=== PATIENT | female | born 1970 | race Caucasian/White ===

== ENCOUNTER 2019-07-04 15:07 | Emergency (ER) | payer BC, SELFPAY ==
[2019-07-04 15:14] VITALS: BP 149/86; PULSE 83; RESP 16; TEMP 36.8; O2SAT 96; BMI 45.9
--- NOTE | 2019-07-04 15:16 | ED_ITS ---
Entered by Flor Raza, acting as scribe for Evelyn Villavicencio DO Documented by User: Evelyn Villavicencio DO 07/04/19 17:56 HPI - General Adult General: Chief complaint: Chest Pain Stated complaint: chest pains Time Seen by Provider: 07/04/19 15:22 History of Present Illness: HPI narrative: 49 yo female presents with chest pain. Pt states that she has had this pain for about 2 weeks. Pt states that the pain radiates down her arms, into her upper back and into the back of her head. Pt states that the pain is worsened by exertion. MD complaint: chest pain. Associated symptoms: Reports chest pain and nausea; Deny dyspnea, headache(s), malaise, rash, palpitations, syncope or vomiting Review of Systems Const: Denies: fever, chills, body aches, change in appetite, change in weight, fatigue or malaise Eyes: Denies: change in vision, blurry vision, blind spots, photophobia or eye discomfort ENMT: Denies: throat pain, uvular edema, enlarged tonsils, painful swallowing, mouth pain or swelling of lips/tongue Card: Reports: chest pain; Denies: palpitations, irregular heart rhythm, edema, swelling of feet/ankles, lightheadedness, syncope, pre-syncope or shortness of breath on exertion Resp: Denies: shortness of breath, productive cough or non-productive cough GI: Reports: nausea; Denies: abdominal pain, vomiting, vomiting blood, coffee grounds in vomit, difficulty swallowing, heartburn/indigestion, feeling full early, diarrhea or constipation Musc: Reports: back pain; Denies: neck pain, extremity pain or extremity swelling Skin/Breast: Denies: rash, itching, redness, sensitivity to light, skin pain, skin tenderness, skin swelling, sores or new lesion Neuro: Denies: headache, numbness in extremities, weakness in extremities or changes in sensation Psych: Denies: anxiety, depression, mood swings, panic attacks or sleeping le ss Endo: Denies: excessive urination, excessive thirst or tired all the time PFSH ED PFSH: Statuses (acute, chronic, etc) shown below reflect problem list status as previously entered and may not be historically accurate Medical History Acid reflux (Acute) Diabetes (Acute) Hypercholesterolemia (Acute) Surgical History H/O: hysterectomy (Acute) History of (Acute) History of cholecystectomy (Acute) Social History Smoking and tobacco status: current every day smoker Physical Exam Const: COMMON NORMALS: no apparent distress, oriented x3 and no limitations HENMT: HEAD & SCALP: normal to inspection THROAT: no uvular edema Eye: COMMON NORMALS: PERRL GENERAL EYE: normal appearance of both eyes VISUAL ACUITY: Yes acuity normal PUPIL: Yes PERRL Neck/C-Spine: COMMON NORMALS: full ROM and thyroid normal GENERAL: Yes normal visual inspection THYROID: thyroid normal Lymph: LYMPHATIC: no lymphadenopathy noted Chest: COMMONS NORMALS: inspection of chest normal Resp: COMMON NORMALS: normal respiratory effort and clear to auscultation bilaterally EFFORT & INSPECTION: Yes able to speak in complete sentences AUSCULTATION: clear to auscultation bilaterally Cardio: COMMON NORMALS: regular rate PALPATION: normal PMI RATE: regular rate GI: COMMON NORMALS: soft to palpation INSPECTION: Yes normal to inspection PALPATION: Yes soft Neuro: COMMON NORMALS: oriented x3 Course ED course: Coreen was interviewed/examined in room 16, accompanied by her significant other. No chest pain at this time. She has had chest discomfort that radiates acrossed both sides of her chest, is intermittent in nature and usually with exertion. She does not know if shoulder pain acompanies it. EKG, CXR, labs were obtained. She was given aspirin. Her initial troponin was 17, a second set has been ordered. Vital Signs: Vital signs: Vital Signs Temperature 98.2 F 07/04/19 15:14 Pulse Rate 83 07/04/19 15:14 Respiratory Rate 16 07/04/19 15:14 Blood Pressure 149/86 07/04/19 15:14 Pulse Oximetry 96 07/04/19 15:14 MDM - General Adult Lab Data: Labs: Lab Results 07/04/19 07/04/19 07/04/19 Range/Units 15:46 15:46 15:46 WBC 5.2 (4.0-10.0) 10^3/ uL RBC 5.17 (4.1-5.3) 10^6/u L Hgb 14.6 (11.5-15.3) g/dL Hct 45.5 (37.0-47.0) % MCV 88.0 (81-99) fL MCH 28.2 (28.0-34.0) pg MCHC 32.1 (30.0-36.0) g/dL RDW 14.6 (12.1-15.1) % Plt Count 114 L (130-400) 10^3/c mm MPV 10.4 (7.4-10.4) fL Neut % (Auto) 67.2 % Lymph % (Auto) 23.9 % Faulk % (Auto) 5.2 % Eos % (Auto) 2.5 % Baso % (Auto) 0.8 % Neut # (Auto) 3.5 (1.8-7.7) 10^3/u L Lymph # (Auto) 1.3 (0.8-4.8) 10^3/u L Faulk # (Auto) 0.3 (0.2-0.9) 10^3/u L Eos # (Auto) 0.1 (0.0-0.8) 10^3/u L Baso # (Auto) 0.0 (0.0-0.1) 10^3/u L Nucleated RBC % (a uto) 0 % Nucleated RBCs # 0.0 /100WBC Sodium 137 (136-145) mmol/L Potassium 4.2 (3.5-5.1) mmol/L Chloride 101 (98-107) mmol/L Carbon Dioxide 26 (22-29) mmol/L Anion Gap 14.2 (5-19) BUN 9 (6-20) mg/dL Creatinine 0.6 (0.5-0.9) mg/dL GFR Calculation 105.8 (90-130) mL/min Glucose 286 H (65-115) mg/dL Calcium 9.5 (8.5-10.5) mg/dL Total Bilirubin 1.1 (0.15-1.2) mg/dL AST 42 H (0-32) U/L ALT 42 H (0-33) U/L Alkaline Phosphata se 188 H (35-105) IU/L Troponin T Baselin e 17 H (0-10) ng/mL Troponin T 120 Min [place] (0-10) ng/mL Delta Troponin T (0-10) ABS# Total Protein 7.6 (6.6-8.7) g/dL Albumin 3.7 (3.5-5.2) g/dL Globulin 3.9 (1.3-4.6) g/dL 07/04/19 Range/Units 17:38 WBC (4.0-10.0) 10^3/ uL RBC (4.1-5.3) 10^6/u L Hgb (11.5-15.3) g/dL Hct (37.0-47.0) % MCV (81-99) fL MCH (28.0-34.0) pg MCHC (30.0-36.0) g/dL RDW (12.1-15.1) % Plt Count (130-400) 10^3/c mm MPV (7.4-10.4) fL Neut % (Auto) % Lymph % (Auto) % Faulk % (Auto) % Eos % (Auto) % Baso % (Auto) % Neut # (Auto) (1.8-7.7) 10^3/u L Lymph # (Auto) (0.8-4.8) 10^3/u L Faulk # (Auto) (0.2-0.9) 10^3/u L Eos # (Auto) (0.0-0.8) 10^3/u L Baso # (Auto) (0.0-0.1) 10^3/u L Nucleated RBC % (a uto) % Nucleated RBCs # /100WBC Sodium (136-145) mmol/L Potassium (3.5-5.1) mmol/L Chloride (98-107) mmol/L Carbon Dioxide (22-29) mmol/L Anion Gap (5-19) BUN (6-20) mg/dL Creatinine (0.5-0.9) mg/dL GFR Calculation (90-130) mL/min Glucose (65-115) mg/dL Calcium (8.5-10.5) mg/dL Total Bilirubin (0.15-1.2) mg/dL AST (0-32) U/L ALT (0-33) U/L Alkaline Phosphata se (35-105) IU/L Troponin T Khrisin khushbu (0-10) ng/mL Troponin T 120 Min [place] 17.25 H (0-10) ng/mL Delta Troponin T 0.25 (0-10) ABS# Total Protein (6.6-8.7) g/dL Albumin (3.5-5.2) g/dL Globulin (1.3-4.6) g/dL EKG Data^: EKG 1: Attestation: I personally reviewed and interpreted this EKG as follows: EKG interpretation date: 07/04/19 EKG interpretation time: 15:27 Interpretation: Noraml sinus rhythm, ventricul rate 80 bpm normal axis, no st segment abnormalities. EKG 2: Attestation: I personally reviewed and interpreted this EKG as follows: EKG interpretation date: 07/04/19 EKG interpretation time: 17:55 Interpretation: Normal Sinus rhythm, vent rate 76 bpm, no ectopy, normal axis Discharge Plan Discharge Prescriptions: No Action pregabalin [Lyrica] 150 mg capsule 150 mg PO BID 30 Days Qty: 60 RF: 3 Sign Out Sign Out Data: Patient Sign Out occurred on 07/04/19 at 18:22. Patient's care was discussed, and care was transferred from to Rodrigo Stephens DO. Coding Level of Care Code ED Diesel Machinist for Chg Fwd Exam Problem Focused Documented by User: Rodrigo Stephens DO 07/04/19 18:25 HPI - General Adult General: Chief complaint: Chest Pain Stated complaint: chest pains Time Seen by Provider: 07/04/19 15:22 PFSH ED PFSH: Statuses (acute, chronic, etc) shown below reflect problem list status as previously entered and may not be historically accurate Medical History Acid reflux (Acute) Diabetes (Acute) Hypercholesterolemia (Acute) Surgical History H/O: hysterectomy (Acute) History of (Acute) History of cholecystectomy (Acute) Social History Smoking and tobacco status: current every day smoker Course Vital Signs: Vital signs: Vital Signs Temperature 98.2 F 07/04/19 15:14 Pulse Rate 83 07/04/19 15:14 Respiratory Rate 16 07/04/19 15:14 Blood Pressure 149/86 07/04/19 15:14 Pulse Oximetry 96 07/04/19 15:14 MDM - General Adult MDM Narrative: Medical decision making narrative: 49-year-old female received in checkout from Dr. Villavicencio. She reports chest pain that is radicular to her arms and the back of her neck. Is been going on 2 weeks. Her second troponin did not change. Her second EKG is normal without ST changes. She has a normal axis. Her rate is 76. We will release her to follow-up. She may need an outpatient stress test. Lab Data: Labs: Lab Results 07/04/19 07/04/19 07/04/19 Range/Units 15:46 15:46 15:46 WBC 5.2 (4.0-10.0) 10^3/ uL RBC 5.17 (4.1-5.3) 10^6/u L Hgb 14.6 (11.5-15.3) g/dL Hct 45.5 (37.0-47.0) % MCV 88.0 (81-99) fL MCH 28.2 (28.0-34.0) pg MCHC 32.1 (30.0-36.0) g/dL RDW 14.6 (12.1-15.1) % Plt Count 114 L (130-400) 10^3/c mm MPV 10.4 (7.4-10.4) fL Neut % (Auto) 67.2 % Lymph % (Auto) 23.9 % Faulk % (Auto) 5.2 % Eos % (Auto) 2.5 % Baso % (Auto) 0.8 % Neut # (Auto) 3.5 (1.8-7.7) 10^3/u L Lymph # (Auto) 1.3 (0.8-4.8) 10^3/u L Faulk # (Auto) 0.3 (0.2-0.9) 10^3/u L Eos # (Auto) 0.1 (0.0-0.8) 10^3/u L Baso # (Auto) 0.0 (0.0-0.1) 10^3/u L Nucleated RBC % (a uto) 0 % Nucleated RBCs # 0.0 /100WBC Sodium 137 (136-145) mmol/L Potassium 4.2 (3.5-5.1) mmol/L Chloride 101 (98-107) mmol/L Carbon Dioxide 26 (22-29) mmol/L Anion Gap 14.2 (5-19) BUN 9 (6-20) mg/dL Creatinine 0.6 (0.5-0.9) mg/dL GFR Calculation 105.8 (90-130) mL/min Glucose 286 H (65-115) mg/dL Calcium 9.5 (8.5-10.5) mg/dL Total Bilirubin 1.1 (0.15-1.2) mg/dL AST 42 H (0-32) U/L ALT 42 H (0-33) U/L Alkaline Phosphata se 188 H (35-105) IU/L Troponin T Baselin e 17 H (0-10) ng/mL Troponin T 120 Min [place] (0-10) ng/mL Delta Troponin T (0-10) ABS# Total Protein 7.6 (6.6-8.7) g/dL Albumin 3.7 (3.5-5.2) g/dL Globulin 3.9 (1.3-4.6) g/dL 07/04/19 Range/Units 17:38 WBC (4.0-10.0) 10^3/ uL RBC (4.1-5.3) 10^6/u L Hgb (11.5-15.3) g/dL Hct (37.0-47.0) % MCV (81-99) fL MCH (28.0-34.0) pg MCHC (30.0-36.0) g/dL RDW (12.1-15.1) % Plt Count (130-400) 10^3/c mm MPV (7.4-10.4) fL Neut % (Auto) % Lymph % (Auto) % Faulk % (Auto) % Eos % (Auto) % Baso % (Auto) % Neut # (Auto) (1.8-7.7) 10^3/u L Lymph # (Auto) (0.8-4.8) 10^3/u L Faulk # (Auto) (0.2-0.9) 10^3/u L Eos # (Auto) (0.0-0.8) 10^3/u L Baso # (Auto) (0.0-0.1) 10^3/u L Nucleated RBC % (a uto) % Nucleated RBCs # /100WBC Sodium (136-145) mmol/L Potassium (3.5-5.1) mmol/L Chloride (98-107) mmol/L Carbon Dioxide (22-29) mmol/L Anion Gap (5-19) BUN (6-20) mg/dL Creatinine (0.5-0.9) mg/dL GFR Calculation (90-130) mL/min Glucose (65-115) mg/dL Calcium (8.5-10.5) mg/dL Total Bilirubin (0.15-1.2) mg/dL AST (0-32) U/L ALT (0-33) U/L Alkaline Phosphata se (35-105) IU/L Troponin T Baselin e (0-10) ng/mL Troponin T 120 Min [place] 17.25 H (0-10) ng/mL Delta Troponin T 0.25 (0-10) ABS# Total Protein (6.6-8.7) g/dL Albumin (3.5-5.2) g/dL Globulin (1.3-4.6) g/dL Discharge Plan Discharge Prescriptions: No Action pregabalin [Lyrica] 150 mg capsule 150 mg PO BID 30 Days Qty: 60 RF: 3 Sign Out Sign Out Data: Patient Sign Out occurred on 07/04/19 at 18:22. Patient's care was discussed, and care was transferred from to Rodrigo Stephens DO. Coding Level of Care Code ED Diesel Machinist for Chg Fwd Exam Problem Focused The documentation recorded by the Ry regalado Kialy, accurately reflects the service I personally performed and the decisions made by , Evelyn Villavicencio, DO
--- NOTE | 2019-07-04 15:36 | XR_ITS ---
WS: [id number] PORTABLE CHEST HISTORY: chest pain COMPARISON: 06/04/2009 Lungs are clear and well expanded. No pleural effusion or pneumothorax. Cardiac size: Normal. Mediastinum/Aorta: Normal mediastinum. No osseous abnormality seen. XR/XR chest 1V portable [id number] IMPRESSION: Unremarkable portable chest.
[2019-07-04] MEDS: aspirin 81 mg Chew Tablet 324 MG PO (16:05)
[2019-07-04 16:09] LABS: Basophils % 0.8 %; Eosinophils # 0.1 10^3/uL (0.0-0.8); Eosinophils % 2.5 %; Hematocrit 45.5 % (37.0-47.0); Hemoglobin 14.6 g/dL (11.5-15.3); Lymphocytes # 1.3 10^3/uL (0.8-4.8); Lymphocytes % 23.9 %; Mean Corpuscular HGB Conc 32.1 g/dL (30.0-36.0); Mean Corpuscular Hemoglobin 28.2 pg (28.0-34.0); Mean Platelet Volume 10.4 fL (7.4-10.4); Monocytes # 0.3 10^3/uL (0.2-0.9); Monocytes % 5.2 %; Neutrophils # 3.5 10^3/uL (1.8-7.7); Neutrophils % 67.2 %; Nucleated Red Blood Cells % 0 %; Platelet Count 114 10^3/cmm (130-400); Red Blood Count 5.17 10^6/uL (4.1-5.3); Red Cell Distribution Width 14.6 % (12.1-15.1); White Blood Count 5.2 10^3/uL (4.0-10.0)
[2019-07-04 16:21] LABS: Alanine Aminotransferase 42 U/L (0-33); Albumin Level 3.7 g/dL (3.5-5.2); Alkaline Phosphatase 188 IU/L (35-105); Anion Gap 14.2 (5-19); Aspartate Amino Transferase 42 U/L (0-32); Blood Urea Nitrogen 9 mg/dL (6-20); Calcium 9.5 mg/dL (8.5-10.5); Carbon Dioxide 26 mmol/L (22-29); Chloride 101 mmol/L (98-107); Globulin 3.9 g/dL (1.3-4.6); Glomerular Filtration Rate 105.8 mL/min (90-130); Glucose 286 mg/dL (65-115); Potassium 4.2 mmol/L (3.5-5.1); Sodium 137 mmol/L (136-145); Total Bilirubin 1.1 mg/dL (0.15-1.2); Total Protein 7.6 g/dL (6.6-8.7)
[2019-07-04 16:26] LABS: Troponin(5th) Baseline 17 ng/mL (0-10)
--- NOTE | 2019-07-04 17:36 | ECG_ITS ---
Measurements Intervals [place] Rate: 76 P: 64 IN: 170 QRS: 47 QRSD: 82 T: 59 QT: 371 QTc: 418 SINUS RHYTHM Compared to ECG 03/04/2016 19:29:15 No significant changes Electronically Signed On 07-04-2019 22:25:54 PRODUCTION LEADER by Carolyn Luna M.D. [id number]
[2019-07-04 18:05] LABS: Troponin 5 2HR 17.25 ng/mL (0-10); Troponin 5 2HR Delta 0.25 ABS# (0-10)
[2019-07-04 18:48] VITALS: BP 127/79; PULSE 78; RESP 16; O2SAT 95
--- NOTE | 2019-07-04 21:36 | ECG_ITS ---
Measurements Intervals [place] Rate: 80 P: 58 [place]: 165 QRS: 41 QRSD: 93 T: 51 QT: 354 QTc: 409 SINUS RHYTHM Compared to ECG 03/04/2016 19:29:15 No significant changes Electronically Signed On 07-04-2019 22:25:46 HEM MARKER by Carolyn Luna M.D. [id number]
== END 2019-07-04 18:48 | disposition home or self-care (01) ==
PROVIDERS: Emergency Medicine Emergency Medical Services; Emergency Provider Emergency Medicine; Family Provider Nurse Practitioner Family
DX: R07.9 Chest pain, unspecified (principal); E11.9 Type 2 diabetes mellitus without complications; F17.210 Nicotine dependence, cigarettes, uncomplicated
CPT/HCPCS: 36415; 71045; 80053; 84484; 85025; 93005; 96360; 99281; 99284

== ENCOUNTER 2019-07-29 09:03 | Outpatient (CLI) | payer BC, SELFPAY ==
[2019-07-29 09:37] VITALS: BMI 47.3
--- NOTE | 2019-07-29 09:41 | ECG_ITS ---
NAME OF STUDY: LEXISCAN SESTAMIBI STRESS TEST INDICATION: Atypical Chest Pain; Shortness of Breath PROCEDURE: At the baseline, the blood pressure was 105/66 mmHg, oxygen saturation 95% with a heart rate of 71 bpm. The electrocardiogram showed normal sinus rhythm, normal axis with normal ST and T's. The Lexiscan was infused over a period of 20 seconds. A total of 0.4 milligrams of Lexiscan was infused. The stress phase was continued for a total of 5 minutes. Heart rate at the end of the stress phase was 89 bpm, oxygen saturation 94% with a blood pressure 108/65 mmHg. The EKG at the peak infusion revealed sinus rhythm with no significant ST-T wave changes. Sestamibi was injected 20 seconds after the Lexiscan infusion. Blood pressure at the end of the recovery phase was 125/70 mmHg, oxygen saturation 95% with a heart rate of 102 beats per minute. Patient developed intraprocedural shortness of breath which resolved by discharge. CONCLUSION: 1. Normal EKG response to LexiScan infusion. 2. No LexiScan induced chest pain or cardiac arrhythmia. 3. Normal blood pressure and heart rate response. 4. Sestamibi/sestamibi perfusion scan pending; see separate report. Electronically Signed On 07-29-2019 18:04:21 DAY HABILITATION SUPERVISOR by Jasmin Yeboah M.D. [id number]
--- NOTE | 2019-07-29 09:41 | NMCV_ITS ---
NM kailey perf SPECT r/s* [id number] Aspen Lama Age: 49 Gender: F : 1970 Exam Date: 07/29/2019 09:41 Ordering Phys: Ralph Rothman SALES AND CATERING COORDINATOR Technologist: ROCKY Benavides Exam Location: [facility] Indications: CHEST PAIN STRESS TEST [facility] IMAGE PROTOCOL Rest/Stress 1 Lexiscan Day Radiopharmaceutical Dose (mCi) Administration Site Administered by Rest: Tc-99m 10.5 IV Estefani Gurrola, ELECTRONIC FIELD SERVICE ENGINEER Sestamibi Stress:Tc-99m 32.8 IV Estefani Bellamyrager, ELECTRONIC FIELD SERVICE ENGINEER Sestamibi Rest: 29-Jul-2019 60 Discovery 630 Stress: 29-Jul-2019 30 Discovery 630 0.4mg Lexiscan. Images obtained in supine and prone position. SPECT RESULTS Technical Quality: Good Raw Data Analysis: Breast attenuation, Soft tissue attenuation Image Corrections: No attenuation or motion correction applied Summed Stress Score: 24 Summed Rest Score: 15 Summed Difference Score: 10 PERFUSION FINDINGS Large size perfusion abnormality of moderate severity in entire anterior, mid to apical anteroseptal, mid to apical anterolateral and apical navarrete on rest images with reversibility noted in anteroseptal, anterior and septal wall on stress images. FUNCTIONAL RESULTS (calculated via Gated SPECT) Stress Image LV EF (%): 22 Stress EDV (mL):209 TID: 1.15 Stress ESV (mL):163 FUNCTIONAL FINDINGS: The left ventricle is dilated. Transient Ischemia Dilatation of 1.1. The left ventricular ejection fraction is severely reduced with a value of 22%. Severe global hypokinesis with akinesis of mid to apical anterior, septal and apical navarrete. Severely increased end-diastolic volume of 209 mL and end-systolic volume of 163 mL. IMPRESSIONS 1. Large size perfusion abnormality of entire anterior, mid to apical anteroseptal, mid to apical anterolateral and apical navarrete with moderate reversibility noted on stress images. 2. This is suggestive of large area of old myocardial infarction in left anterior descending artery territory with moderate area of yoana-infarct ischemia. 3. The left ventricular ejection fraction is severely reduced with a value of 22%. 4. Severe global hypokinesis with akinesis of mid to apical anterior, septal and apical navarrete. 5. Scan indicates moderate to high risk for cardiac events. Jasmin Yeboah MD (Electronically Signed) Final Date: 02 August 2019 09:27 S
--- NOTE | 2019-07-29 11:50 | SUR.PREOP ---
Patient reports no pain or discomfort prior to the start of the procedure.
[2019-07-29] MEDS: regadenoson 0.4 Mg/5 ml Syringe IVP (11:52)
[2019-07-29 11:58] VITALS: BP 125/70; PULSE 104
== END 2019-07-29 09:04 | disposition home or self-care (01) ==
LOC: CDL 09:11
PROVIDERS: Family Provider Registered Nurse; PCP Registered Nurse; Visit Provider Registered Nurse
DX: R07.89 Other chest pain (principal); R06.02 Shortness of breath
CPT/HCPCS: 78452; 93017; A9500; J2785

== ENCOUNTER 2019-08-03 02:15 | Inpatient (IN) | payer BC, SELFPAY ==
[2019-08-03] VITALS (31 sets, daily range): BP systolic 110–207; BP diastolic 66–119; PULSE 102–123; RESP 5–27; TEMP 36.4–36.7; O2SAT 90–96; BMI 45.9
--- NOTE | 2019-08-03 02:18 | XR_ITS ---
WS: [id number] Portable AP upright chest, 08/03/2019 Clinical Data: cp Comparison: Chest, 07/04/2019. Findings: No nodules, masses or effusions are seen. The heart is normal. The pulmonary vascularity is not increased. No pneumonia or pneumothorax is seen. XR/XR chest 1V portable [id number] Impression: Negative chest.
--- NOTE | 2019-08-03 02:18 | ECG_ITS ---
Measurements Intervals [place] Rate: 116 P: 62 [place]: 136 QRS: -18 QRSD: 83 T: 97 QT: 311 QTc: 432 SINUS TACHYCARDIA MINIMAL VOLTAGE CRITERIA FOR LVH, CONSIDER NORMAL VARIANT [MEETS CRITERIA IN ONE OF: R(aVL), S(V1), R(V5), R(V5/V6)+S(V1)] ANTEROSEPTAL MYOCARDIAL INFARCTION , OF INDETERMINATE AGE [40+ ms Q WAVE IN V1-V4] Compared to ECG 07/04/2019 17:53:18 Myocardial infarct finding now present Sinus rhythm no longer present Electronically Signed On 08-04-2019 9:00:06 CDT by Ger Allan M.D. [id number]
--- NOTE | 2019-08-03 02:18 | ED_ITS ---
Entered by Tammy Bey, acting as scribe for HPI - Chest Pain General: Chief Complaint: Chest Pain Stated Complaint: CP Time Seen by Provider: 08/03/19 02:17 Source: patient Mode of arrival: wheelchair Limitations: no limitations History of Present Illness: HPI narrative: 49 yo f came to the er pov with family for chest pain. Onest was last night. Pt states that she had a stress test done last week. Pt said that the pain is on the left side around the left breast and middle of her chest. Pt is having some shortness of breath and nausea. Pt said that this has been going on and off for a month. MD complaint: chest pain Pertinent past history: prior SC Onset (ago): day(s) (last night) Timing of current episode: episodic Prior episodes: Yes Onset: during rest Pain location: substernal Pain radiation: none Severity: mild Associated symptoms: Reports nausea Review of Systems General: Reports: other (negative unless marked) Card: Reports: chest pain GI: Reports: nausea PFSH ED PFSH: Social History (Updated 08/02/19 @ 15:20 by Noemy Mendenhall LPN) Smoking and tobacco status: current every day smoker Alcohol intake: never Adopted: No Caregiver/support person: No Lives independently: No Household members: spouse Marital status: Current occupational status: employed History of recent travel: No Sexually active: Yes Current gender identity: Female Course Vital Signs: Vital signs: Vital Signs Temperature 98.1 F 08/03/19 02:20 Pulse Rate 102 H 08/03/19 03:18 Respiratory Rate 20 H 08/03/19 02:48 Blood Pressure 153/96 08/03/19 03:18 Pulse Oximetry 92 08/03/19 03:18 MDM - Chest Pain MDM Narrative: Medical decision making narrative: Patient presents here with chest pain. Went over her recent stress test that was abnormal and she has an elevated troponin consistent with an STEMI. Patient started on heparin I spoke to hospitalist will admit to the [facility]. Also spoke to Dr. Matthew who is consulted patient is pain-free here after nitro. Lab Data: Labs: Lab Results 08/03/19 08/03/19 08/03/19 Range/Units 02:30 02:30 02:30 WBC 7.6 (4.0-10.0) 10^3/ uL RBC 5.19 (4.1-5.3) 10^6/u L Hgb 14.9 (11.5-15.3) g/dL Hct 45.6 (37.0-47.0) % MCV 87.9 (81-99) fL MCH 28.7 (28.0-34.0) pg MCHC 32.7 (30.0-36.0) g/dL RDW 14.2 (12.1-15.1) % Plt Count 115 L (130-400) 10^3/c mm MPV 11.1 H (7.4-10.4) fL Neut % (Auto) 76.5 % Lymph % (Auto) 16.2 % [place] % (Auto) 4.6 % Eos % (Auto) 1.7 % Baso % (Auto) 0.7 % Neut # (Auto) 5.8 (1.8-7.7) 10^3/u L Lymph # (Auto) 1.2 (0.8-4.8) 10^3/u L [place] # (Auto) 0.4 (0.2-0.9) 10^3/u L Eos # (Auto) 0.1 (0.0-0.8) 10^3/u L Baso # (Auto) 0.1 (0.0-0.1) 10^3/u L Nucleated RBC % (a uto) 0 % Nucleated RBCs # 0.0 /100WBC D-Dimer (0-0.59) ug/mIFE U Sodium 138 (136-145) mmol/L Potassium 4.0 (3.5-5.1) mmol/L Chloride 102 (98-107) mmol/L Carbon Dioxide 23 (22-29) mmol/L Anion Gap 17.0 (5-19) BUN 12 (6-20) mg/dL Creatinine 0.6 (0.5-0.9) mg/dL GFR Calculation 105.8 (90-130) mL/min Glucose 252 H (65-115) mg/dL Calculated Osmolal ity 291 (285-295) mOsm/k g Calcium 9.6 (8.5-10.5) mg/dL Total Bilirubin 0.8 (0.15-1.2) mg/dL AST 41 H (0-32) U/L ALT 31 (0-33) U/L Alkaline Phosphata se 187 H (35-105) IU/L Troponin T Baselin e 254 H* (0-10) ng/mL Total Protein 8.1 (6.6-8.7) g/dL Albumin 3.6 (3.5-5.2) g/dL Globulin 4.5 (1.3-4.6) g/dL 08/03/19 Range/Units 02:30 WBC (4.0-10.0) 10^3/ uL RBC (4.1-5.3) 10^6/u L Hgb (11.5-15.3) g/dL Hct (37.0-47.0) % MCV (81-99) fL MCH (28.0-34.0) pg MCHC (30.0-36.0) g/dL RDW (12.1-15.1) % Plt Count (130-400) 10^3/c mm MPV (7.4-10.4) fL Neut % (Auto) % Lymph % (Auto) % [place] % (Auto) % Eos % (Auto) % Baso % (Auto) % Neut # (Auto) (1.8-7.7) 10^3/u L Lymph # (Auto) (0.8-4.8) 10^3/u L [place] # (Auto) (0.2-0.9) 10^3/u L Eos # (Auto) (0.0-0.8) 10^3/u L Baso # (Auto) (0.0-0.1) 10^3/u L Nucleated RBC % (a uto) % Nucleated RBCs # /100WBC D-Dimer <= 0.27 (0-0.59) ug/mIFE U Sodium (136-145) mmol/L Potassium (3.5-5.1) mmol/L Chloride (98-107) mmol/L Carbon Dioxide (22-29) mmol/L Anion Gap (5-19) BUN (6-20) mg/dL Creatinine (0.5-0.9) mg/dL GFR Calculation (90-130) mL/min Glucose (65-115) mg/dL Calculated Osmolal ity (285-295) mOsm/k g Calcium (8.5-10.5) mg/dL Total Bilirubin (0.15-1.2) mg/dL AST (0-32) U/L ALT (0-33) U/L Alkaline Phosphata se (35-105) IU/L Troponin T Baselin e (0-10) ng/mL Total Protein (6.6-8.7) g/dL Albumin (3.5-5.2) g/dL Globulin (1.3-4.6) g/dL Imaging Data^: CXR: Attestation: I personally reviewed and interpreted this imaging study as follows: My impression: no acute abnormality EKG Data^: EKG 1: Attestation: I personally reviewed and interpreted this EKG as follows: EKG interpretation date: 08/03/19 EKG interpretation time: 02:25 Interpretation: sinus tach hr [address] or t wave abnormalities qrs 83 qtc 380 Discharge Plan Discharge Patient Disposition: Admitted As Inpatient Clinical Impression: Non-ST elevation SC (NSTEMI) Condition: Stable Referrals: Ralph Rothman FNP [Primary Care Provider] - Coding Level of Care Code ED Track Walker for Chg Fwd The documentation recorded by the Sotero regalado Stephanie Lyn, accurately reflects the service I personally performed and the decisions made by , Randall Ceja MD Aug 03, 2019 02:15
[2019-08-03] MEDS: aspirin 81 mg Chew Tablet 324 MG PO (02:35)
[2019-08-03] MEDS: nitroglycerin 0.4 mg sublingual Tablet SUBLINGUAL (02:39)
[2019-08-03 02:51] LABS: D Dimer <= 0.27 ug/mIFEU (0-0.59)
[2019-08-03 02:59] LABS: Alanine Aminotransferase 31 U/L (0-33); Albumin Level 3.6 g/dL (3.5-5.2); Alkaline Phosphatase 187 IU/L (35-105); Aspartate Amino Transferase 41 U/L (0-32); Blood Urea Nitrogen 12 mg/dL (6-20); Calcium 9.6 mg/dL (8.5-10.5); Carbon Dioxide 23 mmol/L (22-29); Chloride 102 mmol/L (98-107); Globulin 4.5 g/dL (1.3-4.6); Glomerular Filtration Rate 105.8 mL/min (90-130); Glucose 252 mg/dL (65-115); Osmolality Calculated 291 mOsm/kg (285-295); Sodium 138 mmol/L (136-145); Total Bilirubin 0.8 mg/dL (0.15-1.2); Total Protein 8.1 g/dL (6.6-8.7)
[2019-08-03 03:26] LABS: Troponin(5th) Baseline 254 ng/mL (0-10)
[2019-08-03 03:29] LABS: Basophils # 0.1 10^3/uL (0.0-0.1); Basophils % 0.7 %; Eosinophils # 0.1 10^3/uL (0.0-0.8); Eosinophils % 1.7 %; Hematocrit 45.6 % (37.0-47.0); Hemoglobin 14.9 g/dL (11.5-15.3); Lymphocytes # 1.2 10^3/uL (0.8-4.8); Lymphocytes % 16.2 %; Mean Corpuscular HGB Conc 32.7 g/dL (30.0-36.0); Mean Corpuscular Hemoglobin 28.7 pg (28.0-34.0); Mean Corpuscular Volume 87.9 fL (81-99); Mean Platelet Volume 11.1 fL (7.4-10.4); Monocytes # 0.4 10^3/uL (0.2-0.9); Monocytes % 4.6 %; Neutrophils # 5.8 10^3/uL (1.8-7.7); Neutrophils % 76.5 %; Nucleated Red Blood Cells % 0 %; Platelet Count 115 10^3/cmm (130-400); Red Blood Count 5.19 10^6/uL (4.1-5.3); Red Cell Distribution Width 14.2 % (12.1-15.1); White Blood Count 7.6 10^3/uL (4.0-10.0)
--- NOTE | 2019-08-03 03:33 | PM.HP ---
Providers/Chief Complaint Primary Care Provider: HAI Merlos Chief Complaint: CP History of Present Illness Aspen Lama is a 49 year old female who had a nuclear stress test 07/28, finalized on 08/01 which was positive for reversible ischemia mid to apical anteroseptal, anterolateral navarrete suggestive of left anterior descending artery territory with yoana-infarctive changes, EF 22% due to global hypokinesia, cardiac cath was recommended came in with chief complaint of recurrent chest pain. Patient went to her primary care physician yesterday who called Dr. Yeboah, stress test abnormal results were notified and she was told that she will need cardiac catheterization. Patient's symptoms started in first week of June, her symptoms were originating especially at the time of hot showers, mild exertion such as doing laundry, walking up to her car, she was seen in ER and was asked to follow-up with PCP for outpatient stress test. Last night patient had chicken noodle with grilled cheese, she was about to go to bed when she started experiencing chest tightness, which she describes by putting hand and middle of her chest, it was radiating towards her both arms and back, she experienced 3 episodes of emesis, it was associated with some shortness of breath, she has not experienced any leg swelling, weight gain, she sleeps with CPAP, mostly to her right lateral position or on her stomach. 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 She smokes about 1 pack/day. For her diabetes she has been taking insulin U500 Diagnostics in ER revealed sinus tachycardia, T wave changes in lateral and septal leads, Q waves in septal leads, hyperglycemia, baseline troponin II 154, heparin drip has been initiated, she has received full dose aspirin Review of Systems Const: Denies: fever, chills or body aches Eyes: Denies: change in vision ENMT: Denies: throat pain Card: Reports: chest pain, swelling of feet/ankles, shortness of breath when lying down and bluish discoloration of hands/feet; Denies: palpitations or irregular heart rhythm Resp: Reports: shortness of breath; Denies: productive cough or non-productive cough GI: Reports: bloating; Denies: abdominal pain : Denies: flank pain Musc: Denies: neck pain Skin/Breast: Denies: rash Neuro: Denies: headache Psych: Denies: anxiety Endo: Denies: excessive urination Andrey/Lymph: Reports: easy bruising All/Imm: Denies: hives Medications/Allergies Allergies Allergy/AdvReac Type Severity Reaction Status Date / Time cephalexin [From Keflex] Allergy ADR-Itching Verified 08/02/19 15:18 Iodinated Contrast Media Allergy ADR-Cough Verified 08/02/19 15:18 Penicillins Allergy ADR-Itching Verified 08/02/19 15:18 PFSH Acute PFSH: Medical History (Updated 08/03/19 @ 04:30 by Carolyn Ramon MD) Acid reflux Diabetes Hypercholesterolemia Surgical History H/O: hysterectomy History of History of cholecystectomy Social History (Updated 08/02/19 @ 15:20 by Noemy Mendenhall LPN) Smoking and tobacco status: current every day smoker Alcohol intake: never Adopted: No Caregiver/support person: No Lives independently: No Household members: spouse Marital status: Current occupational status: employed History of recent travel: No Sexually active: Yes Current gender identity: Female Vitals/I&O/Wt Last Vital Signs Temp 98.1 F 08/03/19 02:20 Pulse 102 H 08/03/19 03:18 Resp 20 H 08/03/19 02:48 BP 153/96 08/03/19 03:18 Pulse Ox 92 08/03/19 03:18 Weight last 48 hrs Weight 145.15 kg Physical Exam Narrative: EXAM NARRATIVE: Morbidly obese female sitting comfortably in her bed, Sinus tachycardia heart rate 105, Currently chest pain-free Systolic blood pressure 157 S1, S2 no signs of heart failure or JVD or murmur Bilateral breath sounds, without adventitious sounds No respiratory distress Abdomen soft, distended, history obesity, Lower extremity venous stasis dermatitis No active swelling Patient is very emotional at the moment, No suicidal thoughts Data : 08/03/19 02:30 08/03/19 02:30 A&P Assessment and plan (1) Non-ST elevation [place] (NSTEMI): Status: Acute Code(s): I21.4 - Non-ST elevation (NSTEMI) myocardial infarction (2) Morbid obesity: Status: Acute Code(s): E66.01 - Morbid (severe) obesity due to excess calories (3) Ischemic contracture of left ventricle syndrome: Status: Acute Code(s): I50.1 - Left ventricular failure, unspecified (4) Shortness of breath on exertion: Status: Acute Code(s): R06.02 - Shortness of breath (5) Cigarette smoker motivated to quit: Status: Acute Code(s): F17.210 - Nicotine dependence, cigarettes, uncomplicated (6) Diabetes: Status: Acute Qualifiers: Diabetes mellitus type: type 2 Diabetes 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 use: with adjunct faculty for medical terminology use Diabetes mellitus complication status: without complication Qualified Code(s): E11.9 - Type 2 diabetes mellitus without complications; 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 Heparin drip Poorly controlled type 2 diabetes Patient is taking insulin U500 Considering n.p.o. status I will keep her on sliding scale for now Morbid obesity Patient uses CPAP at night Counseled on weight loss and benefits on high blood pressure, energy, mood, hemodynamics, etc. Active smoker, she tried nicotine alternative methods for 2 -3 days but failed unfortunately, currently smoking 1 pack/day, Full code Attestations Medical Necessity Statement*: Anticipating her stay to cross more than 2 midnights needs cardiac angiogram for an NSTEMI Time Spent in Patient Care: 40 Coding Level of Care Code Acute Implementation Director for [facility] Fwd Diagnoses Non-ST elevation [place] (NSTEMI) I21.4 Morbid obesity E66.01 Ischemic contracture of left ventricle syndrome I50.1 Shortness of breath on exertion R06.02 Cigarette smoker motivated to quit F17.210 Diabetes E11.9; Z79.4 Diabetes mellitus type: type 2 Diabetes mellitus [facility] insulin use: with [facility] use Diabetes mellitus complication status: without complication
[2019-08-03] MEDS: heparin 5,000 unit/mL INJ 1 mL 4000 UNIT IVP (03:46)
[2019-08-03] MEDS: heparin drip 25,000 UNIT/500 ML PREMIX 34.8 UNIT IV (03:49)
--- NOTE | 2019-08-03 04:18 | ECG_ITS ---
Measurements Intervals [place] Rate: 99 P: 50 FL: 134 QRS: -13 QRSD: 99 T: 95 QT: 338 QTc: 434 SINUS RHYTHM ANTEROSEPTAL MYOCARDIAL INFARCTION , OF INDETERMINATE AGE [40+ ms Q WAVE IN V1-V4] Compared to ECG 07/04/2019 17:53:18 Myocardial infarct finding now present Electronically Signed On 08-04-2019 9:05:36 CDT by Ger Allan M.D. [email or web address]
--- NOTE | 2019-08-03 04:47 | PC.NURSE ---
Dr. Ceja advised of patient blood pressure of 187/118, awaiting orders
[2019-08-03] MEDS: labetalol 5 mg/mL SDV 20mL 10 MG IVP (04:55)
--- NOTE | 2019-08-03 08:18 | ECG_ITS ---
Measurements Intervals [place] Rate: 102 P: 55 DE: 141 QRS: -14 QRSD: 96 T: 95 QT: 329 QTc: 430 SINUS TACHYCARDIA ANTEROSEPTAL MYOCARDIAL INFARCTION , OF INDETERMINATE AGE [40+ ms Q WAVE IN V1-V4] Compared to ECG 07/04/2019 17:53:18 Myocardial infarct finding now present Sinus rhythm no longer present Electronically Signed On 08-04-2019 9:05:40 CDT by Ger Allan M.D. [email or web address]
[2019-08-03 09:09] LABS: Troponin 5 6HR 1042 ng/mL (0-10); Troponin 5 6HR Delta 788 ng/L (0-12)
--- NOTE | 2019-08-03 09:23 | P.PN_ITS ---
Subjective Subjective: Interval history: She is having some discomfort in her mid to lower chest. Denies other complaints. Vitals/I&O/Wt Last Vital Signs Temp 98.1 F 08/03/19 02:20 Pulse 108 H 08/03/19 06:48 Resp 20 H 08/03/19 06:48 BP 160/87 08/03/19 06:48 Pulse Ox 94 08/03/19 06:48 Weight last 48 hrs Weight 145.15 kg Physical Exam Const: COMMON NORMALS: no apparent distress and oriented x3 NUTRITIONAL APPEARANCE: obese OTHER: Family at bedside. HENMT: COMMON NORMALS: oropharynx normal Neck/C-Spine: COMMON NORMALS: no JVD Resp: COMMON NORMALS: normal respiratory effort and clear to auscultation bilaterally AUSCULTATION: clear to auscultation bilaterally Cardio: COMMON NORMALS: no JVD, regular rhythm, S1 normal heart sound, S2 normal heart sound and no murmurs RHYTHM: regular rhythm HEART SOUNDS: S1 normal and S2 normal GI: COMMON NORMALS: normal to inspection, nondistended, normoactive bowel sounds, soft to palpation and non-tender PALPATION: Yes soft Extremity: COMMON NORMALS: no joint enlargement and no pedal edema Neuro: COMMON NORMALS: oriented x3 and moves all extremities Skin: COMMON NORMALS: no rashes or lesions noted GENERAL SKIN EXAM: no rashes or lesions noted Data : 08/03/19 02:30 08/03/19 02:30 A&P Assessment and plan (1) Non-ST elevation [place] (NSTEMI): Continue cardiac medications including heparin drip. Awaiting cardiac evaluation and coronary angiography. Status: Acute Code(s): I21.4 - Non-ST elevation (NSTEMI) myocardial infarction (2) Ischemic contracture of left ventricle syndrome: Status: Deleted Code(s): I50.1 - Left ventricular failure, unspecified (3) Morbid obesity: Follow-up with primary care provider regarding weight loss options. Status: Acute Code(s): E66.01 - Morbid (severe) obesity due to excess calories (4) Shortness of breath on exertion: Status: Acute Code(s): R06.02 - Shortness of breath (5) Cigarette smoker motivated to quit: Continue to encourage cessation. Status: Acute Code(s): F17.210 - Nicotine dependence, cigarettes, uncomplicated (6) Diabetes: Continue sliding scale insulin. Currently n.p.o. 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
--- NOTE | 2019-08-03 09:52 | USCV_ITS ---
Aspen Lama Age: 49 Gender: F : 1970 Exam Date: 08/03/2019 10:37 Ordering Phys: Marce Matthew MD ([email or web address]) Technologist: Maurizio Awad Exam Location: [facility] [place] Indication: CT BP: 163 / 112 HR: 102 Rhythm: Sinus Technical Quality: Fair MEASUREMENTS (Male / Female) Normal Values 2D ECHO LV Diastolic Diameter PLAX 3.8 cm 4.2 - 5.9 / 3.9 - 5.3 cm LV Systolic Diameter PLAX 3.6 cm IVS Diastolic Thickness 1.3 cm 0.6 - 1.0 / 0.6 - 0.9 cm IVS Systolic Thickness 1.2 cm LVPW Diastolic Thickness 1.3 cm 0.6 - 1.0 / 0.6 - 0.9 cm LVPW Systolic Thickness 1.2 cm LVOT Diameter 2.6 cm LV Ejection Fraction 2D Teich 13.5 % LV Ejection Fraction MOD 2C 48.7 % LV Ejection Fraction 2C AL 49.4 % LA Diameter 4.5 cm LA Width 4.2 cm LA Height 5.2 cm RA Width 3.9 cm RA Height 4.5 cm Aorta at Sinotubular Diameter 3.1 cm M-MODE LV Diastolic Diameter MM 4.6 cm 4.2 - 5.9 / 3.9 - 5.3 cm LV Systolic Diameter MM 3.0 cm LV Ejection Fraction MM Teich 62.0 % IVS Diastolic Thickness MM 1.1 cm 0.6 - 1.0 / 0.6 - 0.9 cm IVS Systolic Thickness MM 1.8 cm LVPW Diastolic Thickness MM 1.5 cm 0.6 - 1.0 / 0.6 - 0.9 cm LVPW Systolic Thickness MM 2.4 cm RV Diastolic Diameter MM 2.1 cm Aortic Annulus Diameter 3.3 cm LA Ao Ratio MM 1.4 MV E Point Septal Separation 2.2 cm DOPPLER AV Peak Velocity 155.0 cm/s LVOT Peak Velocity 81.0 cm/s AV Area Cont Eq vti 3.6 cm squared AV Area Cont Eq pk 2.8 cm squared MV Area PHT 5.0 cm squared Mitral E to A Ratio 1.1 MV E' Velocity 7.0 cm/s Mitral E to MV E' Ratio 16.7 Mitral E to LV E' Lateral Ratio 13.5 Mitral E to LV E' Septal Ratio 22.6 TR Peak Velocity 149.0 cm/s TR Peak Gradient 8.8 mmHg TV Peak E Velocity 90.0 cm/s Right Atrial Pressure 3.0 mmHg Pulmonary Artery Systolic Pressu 11.9 mmHg FINDINGS Left Ventricle Severe diffuse hypokinesia of the septum, anteroseptum and the LV apex. The LV ejection fraction around 30 to 35%. Right Ventricle Possibly of normal size and ejection fraction. Right Atrium Possibly of normal size. Left Atrium Appears to be normal size. Mitral Valve Thickened mitral valve. Mild-moderate mitral valve regurgitation. Aortic Valve Thickened aortic valve. Tricuspid Valve Trace tricuspid valve regurgitation. Pulmonic Valve Pulmonic valve not well visualized. Pericardium No pericardial effusion. Aorta Normal aortic annulus size. CONCLUSIONS Normal LV size with diminished ejection fraction of 30 to 35%. Multiple wall motion normalities as mentioned above. Minimally thickened aortic and mitral valves. Mild to moderate mitral with a trace of tricuspid regurgitation. No pericardial effusion. No obvious intracardiac masses. Technically difficult study because of the poor ultrasonic window. No previous study is available for comparison. Dr Marce Matthew MD FACC (Electronically Signed) Final Date: 03 August 2019 12:35 S
--- NOTE | 2019-08-03 09:57 | P.CONIM_ITS ---
Providers/Reason For Consult Consulting Physican/Specialty*: FAHAD Matthew MD/cardiology Reason for Consult*: Patient with chest pain/elevated troponin T Attending Physician: Walter Hartley Primary Care Provider: HAI Merlos History of Present Illness History of Present Illness Aspen Lama is a 49 year old female with a history of hypertension, type 2 diabetes and dyslipidemia, has been having chest pain, shortness of breath and easy fatigability for the last 2 months or so. She is admitted to the hospital through the emergency room where she presented with complaints of worsening chest pain since last night. She was found to have an elevated troponin T. Car diology consult is requested for further cardiac evaluation recommendations. Patient apparently has been in her baseline state of health up until 2 months ago when she started having chest pain/chest tightness associated with dyspnea on exertion and easy fatigability. The chest pain were mostly precipitated with activities. She described as a pressure/squeezing type of pain across the lower substernal area, occasionally radiating to the shoulders and to both arms. She has associated shortness of breath. She also may have some nausea and sweating. She has been having chest pain almost every day, several times a day. The intensity of the pain is anywhere from mild to moderate. The pains may last anywhere from few minutes to few hours. Her exercise tolerance has significantly reduced over the last 2 months. She has dyspnea on exertion. No orthopnea or PND. Last night, as she was trying to go to bed, the pain started getting worse. It was moderate to severe in intensity. She had associated nausea and sweating. For these complaints, her brought her to the emergency room. Patient has no previous history for coronary artery disease, myocardial infarction or congestive heart failure. She has a history of diabetes for the last more than 15 years. The blood sugar has been staying out of control lately. She also is known to have high blood pressure for the more than 10 years with dyslipidemia. She smokes a pack a day for more than 30 years. No alcohol abuse or any other substance abuse. Her father and grandfather had premature ischemic heart disease. Father had a myocardial infarction in his 30s. Grandfather had the myocardial infarction in his 40s. The details are not available at this time. At the time of my examination, patient has chest pain of 3/10. According to her, this is somewhat her baseline's status, for the last 2 months or so. She has no fever, chills or cough. No abdominal pain or dysuria. No cough or hemoptysis. Review of Systems Narrative: CONSTITUTIONAL: No fever or chills. Feeling of weakness/tiredness for the last couple of months. EYES: No blurring of vision or other visual disturbances lately. ENT: No hoarseness of voice, auditory disturbances or sore throat. CARDIOVASCULAR: As mentioned above. RESPIRATORY: Has been having dyspnea on exertion. No orthopnea. No fever or chills. GASTROINTESTINAL: No hematemesis or melena. GENITOURINARY: No dysuria or hematuria. INTEGUMENTARY: No skin rashes or history of skin cancer. NEURO: No transient ischemic attacks or amaurosis. PSYCHIATRIC: No history of psychosis or major depression. HEMATOLOGIC: No bleeding disorders or significant anemia. ENDOCRINE: History of type 2 diabetes MUSCULOSKELETAL: No recent joint pain or swelling. ALLERGY/IMMUNOLOGY: As mentioned above. Meds/Allergies Home Medications and Allergies Home Medications Medication Instructions Recorded Confirmed Type albuterol sulfate 90 mcg/actuation 2 puff INHALATION Q6H PRN 07/08/19 08/03/19 History aerosol inhaler atorvastatin 10 mg tablet 10 mg PO DAILY 07/08/19 08/03/19 History estradiol 1 mg tablet 1 mg PO DAILY 07/08/19 08/03/19 History furosemide 40 mg tablet 40 mg PO DAILY 07/08/19 08/03/19 History metoprolol tartrate 25 mg tablet 25 mg PO BID 07/08/19 08/03/19 History diltiazem HCl 240 mg PO DAILY 08/03/19 08/03/19 History ergocalciferol (vitamin D2) 1,250 mcg PO DAILY 08/03/19 08/03/19 History insulin regular hum U-500 conc See Rx Instructions .ROUTE .COMPLEX 08/03/19 08/03/19 History [Humulin R U-500 (Conc) Insulin] omeprazole 20 mg PO DAILY 08/03/19 08/03/19 History Allergies Allergy/AdvReac Type Severity Reaction Status Date / Time cephalexin [From Keflex] Allergy ADR-Itching Verified 08/02/19 15:18 Iodinated Contrast Media Allergy ADR-Cough Verified 08/02/19 15:18 Penicillins Allergy ADR-Itching Verified 08/02/19 15:18 Current Medications Current Medications Generic Name Dose Route Start Last Admin Trade Name Freq PRN Reason Stop Dose Admin Heparin Sodium/Sodium Chloride 25,000 unit in 500 mls @ 34.836 mls/hr 08/03/19 03:30 08/03/19 03:49 Heparin Drip IV 12 unit/kg/hr .[id number] RUSSELL 34.8 mls/hr Administration 12 UNIT/KG/HR Nitroglycerin 0.4 mg 08/03/19 02:23 08/03/19 02:39 Nitrostat SUBLINGUAL 0.4 mg Q5M PRN Administration CHEST PAIN PFSH Acute PFSH: Medical History Acid reflux Benign essential hypertension with target blood pressure below 140/90 Diabetes Dyslipidemia associated with type 2 diabetes mellitus Hypercholesterolemia Surgical History H/O: hysterectomy History of History of cholecystectomy Family History Other Chest pain Social History Smoking and tobacco status: current every day smoker Alcohol intake: never Adopted: No Caregiver/support person: No Lives independently: No Household members: spouse Marital status: Current occupational status: employed History of recent travel: No Sexually active: Yes Current gender identity: Female Vitals/I&O/Wt Last Vital Signs Temp 98.1 F 08/03/19 02:20 Pulse 108 H 08/03/19 06:48 Resp 20 H 08/03/19 06:48 BP 160/87 08/03/19 06:48 Pulse Ox 94 08/03/19 06:48 Weight last 48 hrs Weight 320 lb Physical Exam Narrative: EXAM NARRATIVE: GENERAL: The patient is alert and oriented times three. Not in any acute distress. HEENT: No significant pallor, icterus or lymphadenopathy. The pupils are reactant to light. Oral cavity: There are no mucous membrane lesions. Funduscopic examination: The fundus is not visualized NECK: Trachea appears to be central. No masses noted. No JVD or thyromegaly appreciated. No carotid bruit. RESPIRATORY: Chest is symmetrical. No intercostals muscle retraction or any acce ssory muscle activation. There is no chest wall tenderness. Breath sounds are heard bilaterally. No rales or rhonchi heard. No evidence of any consolidation. BREASTS: Deferred. HEART: The PMI could not be palpated. No other palpable precordial events. S1 and S2 are normal. No S3 or S4 heard. No pericardial rub or any click heard. ABDOMEN: No vessel pulsations or distention. No tenderness. No organomegaly appreciated. No abdominal bruit. Bowel sounds are normally heard. : Deferred. RECTAL: Deferred. LYMPHATIC: No lymphadenopathy noted in the neck or groin. EXTREMITIES: No edema or cyanosis. No clubbing. The pulses are symmetrical bilaterally. The radial, femoral, dorsalis pedis and the posterior tibial pulses are palpated and found to be in good volume and amplitude. MUSCULOSKELETAL: No acute joint deformities or swelling SKIN: There are no significant scars or skin rash noted. NEUROPSYCHIATRIC: The patient is alert and oriented x3. Appears to be in a good mood. The higher functions are grossly within normal limits. No tremors or rigidity noted. Data Labs: Other Labs: Abnormal lab results 08/03/19 08/03/19 08/03/19 Range/Units 02:30 02:30 02:30 Plt Count 115 L (130-400) 10^3/c mm MPV 11.1 H (7.4-10.4) fL Glucose 252 H (65-115) mg/dL AST 41 H (0-32) U/L Alkaline Phosphata se 187 H (35-105) IU/L Troponin I 6 Hour (0-10) ng/mL Troponin I Hi Sens Del (0-12) ng/L Troponin T Baselin e 254 H* (0-10) ng/mL Troponin T 120 Min [place] (0-10) ng/mL Delta Troponin T (0-10) ABS# 08/03/19 08/03/19 Range/Units 04:20 08:30 Plt Count (130-400) 10^3/c mm MPV (7.4-10.4) fL Glucose (65-115) mg/dL AST (0-32) U/L Alkaline Phosphata se (35-105) IU/L Troponin I 6 Hour 1042 H (0-10) ng/mL Troponin I Hi Sens Del 788 H* (0-12) ng/L Troponin T Baselin e (0-10) ng/mL Troponin T 120 Min [place] 782.0 H (0-10) ng/mL Delta Troponin T 528.0 H* (0-10) ABS# Imaging^: Myocardial perfusion imaging: My impression: 07/29/2019 1. Large size perfusion abnormality of entire anterior, mid to apical anteroseptal, mid to apical anterolateral and apical navarrete with moderate reversibility noted on stress images. 2. This is suggestive of large area of old myocardial infarction in left anterior descending artery territory with moderate area of yoana-infarct ischemia. 3. The left ventricular ejection fraction is severely reduced with a value of 22%. 4. Severe global hypokinesis with akinesis of mid to apical anterior, septal and apical navarrete. 5. Scan indicates moderate to high risk for cardiac events. CXR: My impression: Borderline cardiac silhouette. No lung infiltrate. No acute pathology noted. Echo: My impression: Normal LV size with diminished ejection fraction of 30 to 35%. Multiple wall motion normalities as mentioned above. Minimally thickened aortic and mitral valves. Mild to moderate mitral with a trace of tricuspid regurgitation. No pericardial effusion. No obvious intracardiac masses. Technically difficult study because of the poor ultrasonic window. No previous study is available for comparison. EKG^: EKG 1: My Interpretation: Normal sinus rhythm with poor R wave progression. Features of old anteroseptal OK. Left axis deviation. Diffuse nonspecific ST-T changes. A&P Assessment and plan (1) Non-ST elevation OK (NSTEMI): Patient clinical features are consistent with a non-ST elevation myocardial infarction. Her echocardiogram and the myocardial perfusion imaging are suggestive of ischemia/injury in the LAD territory. She may be started on Lovenox, beta-dilcia, aspirin and Plavix. Also may be started on a statin. Status: Acute Code(s): I21.4 - Non-ST elevation (NSTEMI) myocardial infarction (2) Atherosclerotic heart disease of [place] coronary artery with unstable angina pectoris: For further evaluation of the patient's coronary status, she requires an early cardiac catheterization. Based on the results, further recommendations will be made. Status: Acute Code(s): I25.110 - Atherosclerotic heart disease of [place] coronary artery with unstable angina pectoris (3) Morbid obesity with BMI of 45.0-49.9, adult: Status: Acute Code(s): E66.01 - Morbid (severe) obesity due to excess calories; Z68.42 - Body mass index (BMI) 45.0-49.9, adult (4) Dyslipidemia associated with type 2 diabetes mellitus: May be started on high-dose statin. Status: Acute Code(s): E11.69 - Type 2 diabetes mellitus with other specified complication; E78.5 - Hyperlipidemia, unspecified (5) Benign essential hypertension with target blood pressure below 140/90: Currently he has stage II hypertension. Will optimize antihypertensive medications. Status: Acute Code(s): I10 - Essential (primary) hypertension (6) Ischemic cardiomyopathy: I may start her on losartan 50 mg p.o. now and daily. Also will start on spironolactone and Lasix. A low-dose of beta-dilcia also may be started. Status: Acute Code(s): I25.5 - Ischemic cardiomyopathy Additional A&P Information Based on the clinical progress and the results of the above, further recommendations will be made Coding Level of Care Code Acute Mold Finisher for g Fwd Diagnoses Non-ST elevation OK (NSTEMI) I21.4 Atherosclerotic heart disease of [place] coronary artery with unstable angina pectoris I25.110 Morbid obesity with BMI of 45.0-49.9, adult E66.01; Z68.42 Dyslipidemia associated with type 2 diabetes mellitus E11.69; E78.5 Benign essential hypertension with target blood pressure below 140/90 I10 Ischemic cardiomyopathy I25.5
--- NOTE | 2019-08-03 13:24 | ECG_ITS ---
Measurements Intervals [place] Rate: 111 P: 61 ID: [id number] QRS: -18 QRSD: 93 T: 96 QT: 332 QTc: 453 SINUS TACHYCARDIA MINIMAL VOLTAGE CRITERIA FOR LVH, CONSIDER NORMAL VARIANT [MEETS CRITERIA IN ONE OF: R(aVL), S(V1), R(V5), R(V5/V6)+S(V1)] ANTEROSEPTAL MYOCARDIAL INFARCTION [40+ ms Q WAVE IN V1-V4], OF INDETERMINATE AGE WARNING: DATA QUALITY MAY AFFECT INTERPRETATION Compared to ECG 07/04/2019 17:53:18 Myocardial infarct finding now present Sinus rhythm no longer present Electronically Signed On 08-04-2019 9:01:29 CDT by Ger Allan M.D. [email or web address]
[2019-08-03 13:44] LABS: Glucose Point of Care 236 mg/dL (70-110)
[2019-08-03] MEDS: metoprolol succinate ER (24 HR) 25 mg Tablet PO (13:45)
[2019-08-03] MEDS: losartan 50 mg Tablet PO (13:45)
[2019-08-03] MEDS: clopidogrel 300 mg Tablet PO (13:46)
[2019-08-03] MEDS: isosorbide mononitrate ER 30 mg Tablet PO (13:46)
[2019-08-03] MEDS: spironolactone 25 mg Tablet PO (13:47)
[2019-08-03] MEDS: FUROsemide 10 mg/mL SDV 4mL 40 MG IVP (13:47)
[2019-08-03 14:02] LABS: Estmated Average Glucose 192; Hemoglobin A1C 8.3 % (4.0-6.0)
[2019-08-03 14:08] LABS: Chol HDL Ratio 3.21 mg/dL (0.0-4.40); Cholesterol 167 mg/dL (0-200); HDL Cholesterol 52 mg/dL (60-100); LDL Cholesterol Calculated 95 mg/dL (50-129); LDL HDL Ratio 1.83 RATIO (0.00-3.22); Triglycerides 101 mg/dL (0-150)
--- NOTE | 2019-08-03 14:09 | PC.NURSE ---
instructions to Hold sliding scale insulin at this time recheck BG at [address] Matthew
--- NOTE | 2019-08-03 16:17 | XACV_ITS ---
Exam Room: [facility] Ht: 178 cm Wt: 145 kg BSA: 2.75 m2 Gender: Female : 1970 Any Known Allergies: Other Exam Priority: Routine Procedure(s): Procedure Description: Diagnostic procedure Procedure Description: PCI procedure Procedure Description: Left Heart Catheterization Procedure Description: Left ventriculography Procedure Description: Drug Eluting Coronary Stent Procedure Description: Miscellaneous Procedure Description: ACT Procedure Description: Coronary Angiography Diagnostic Cath Status: Urgent Diagnostic Findings Proximal Left Anterior Descending Coronary Artery: Severe 95% stenosis, 13.00 mm in length, minimally calcified, ulcerated, eccentric plaque, thrombosed segment, minimal proximal segment tortuosity, non-angulated segment, TAMMY: 2 flow, high/c lesion. Coronary angiography shows right dominance. The left and descending artery is a medium to large caliber vessel which appears to wrap around the LV apex. The proximal LAD was found to have a high-grade segmental stenosis of around 95%. The mid and distal LAD was found to have mild diffuse disease. The circumflex artery is a medium to large caliber dominant vessel which was found to have mild diffuse intimal irregularities in the proximal and the mid segments. No significant stenotic lesions. The intermedius artery is a small caliber vessel which was found to have mild to moderate diffuse disease. The right coronary artery is a nondominant small to medium caliber vessel which was found to have around 50 to 60% tubular stenosis proximally. No other significant stenotic lesions. PCI Status: Urgent PCI LVEF Assessed: No PCI Indication: NSTE - ACS Interventional Findings 99% ulcerated proximal LAD lesion with significant thrombus burden. The lesion was primarily stented which then caused downstream embolization and no reflow. A total of 3 mg of nicardipine was used as well as an Aggrastat bolus intracoronary. An Aggrastat drip was started. There was slow reflow at the end of the procedure with less filling in the apical LAD. The thrombus burden is significant. Decision for PCI with Surgical Consult: No PCI for Multi-vessel Disease: No Conclusions 49-year-old white female with history of hypertension, type 2 diabetes, dyslipidemia, obesity and smoking abuse, presenting with unstable angina. Clinical features of non-ST elevation myocardial infarction. Echocardiographic evidence of multiple wall motion normalities with diminished LV ejection fraction of around 30%. Cardiac catheterization was recommended for further evaluation of her coronary status and decide on further management. Underwent left heart catheterization with left and right coronary angiogram and LV angiogram. The findings are as follows. There is severe coronary artery disease with one vessel [id number] lesion in the proximal LAD. Moderate disease in the nondominant right coronary artery. Mild diffuse disease in the other vessels. Moderate left ventricular systolic dysfunction. Ejection fraction of 30%. LVEDP of 27 mmHg. Left dominant coronary circulation. Recommendations Discussed and reviewed the cardiac catheterization data with Dr. Allan. It was thought to be appropriate to consider PCI of the LAD lesion. Dr. Allan took over further management of this patient at this point. Diagnostic RX Recommendation: PCI w/o planned CABG Ejection Fraction: 30.0 % LV EDP: 27 mmHg Left Ventriculography Findings: The LV gram was performed in the BARON projection. There was moderate diffuse hypokinesia of the mid and apical anterior and apical inferior wall segments. No filling defects are noted. No significant mitral valve prolapse or mitral regurgitation. Pressures Phase:Rest AO : 107 mmHg / 78 mmHg ( 90 mmHg ) @ 11:47:00 AM 144 mmHg / 80 mmHg ( 103 mmHg ) @ 11:55:00 AM 143 mmHg / 80 mmHg ( 102 mmHg ) @ 11:55:00 AM 135 mmHg / 94 mmHg ( 112 mmHg ) @ 12:17:00 PM 130 mmHg / 85 mmHg ( 102 mmHg ) @ 12:28:00 PM 133 mmHg / 94 mmHg ( 108 mmHg ) @ 12:42:00 PM LV : 153 mmHg / -4 mmHg / @ 11:54:00 AM 142 mmHg / 6 mmHg / @ 11:55:00 AM 138 mmHg / 6 mmHg / @ 11:55:00 AM Valves Phase:DefaultPhase AV : 0.0 mmHg @ 5:54:50 PM 0.0 mmHg @ 5:54:50 PM AV Mean Gradient: 0.0 mmHg @ 5:54:50 PM Clinical Evaluation EBL: 5mL-10mL Procedural Details Procedure Consent Obtained. Pre-Procedure Time Out. Identified patient by full name and date of as verbalized by the patient/guarantor. Does the consent match the physician's order: Yes. Accurate & Complete Informed Consent: Yes. Inpatient/Outpatient History & Physical on Chart: Yes. If H&P is completed, is and addenduem needed: No; If yes, is the addendum complete: N/A. Visualize and Verify Site with Patient/Guarantor: N/A. Relevant Radiology Images available: N/A. Pre-op teaching completed and patient verbalized understanding. The risks, benefits, and alternatives of sedation and/or procedure were discussed by physician. The patient agrees to continue. Procedure started. [facility] Clinical Fraility Score: 3: Managing Well. Vehicle Dismantler Indications: ACS <= 24 hours. Chest Pain Symptom Assessment: Atypical Angina. Cardiovascular Instability: No. Correct patient, site and procedure confirmed by cath team. PERRLA. Strong, equal hand auger operator bilaterally. Lungs clear x 5 lobes. IV Site on Arrival: 20 gauge in the left anticubital. IV Fluids: 0.9% NaCl at KVO. 0 mL infused prior to laborer pipelines. Pre Procedural Pulses: bilateral radial was 3+. Oxygen started at 2liters/min via nasal canula. bilateral groins was prepped with chloroprep then draped in the usual sterile fashion. right radial was prepped with chloroprep then draped in the usual sterile fashion. Baseline sample Acquired. HR: 105 BPM. Physician notified. Equipment: 5F - Radial. Cardiac Cath Pack. ACIST Manifold Kit Model BT 2000. Heparinized Saline (2 units/mL), 1000 mL bag. Physician arrived. Physician scrubbed in. Immediate Pre-Procedure Time Out. Correct Patient: Yes; Correct Procedure: Yes; Correct Site: Yes; Correct Patient Position: Yes; Correct Supplies: Yes; Dried Flammable Prep: Yes; Blood Products Available: N/A;. Lidocaine 1% infiltrated to the right radial. Arterial access obtained. A Terumo 5 Fr Robert Radial Catheter, 110cm was advanced over the wire and used for Left coronary angiography. ACT drawn. Results 121 seconds. Therapeutic limits - pre-heparin administration 90-150 seconds and monitoring heparin during a vascular procedure >250 seconds. Multiple views taken of left coronary artery. Called Dr Allan to come view films. Catheter redirected to the RCA. Multiple views taken of right coronary artery. Catheter removed over the exchange wire. A CRD 5F 145 Angled Pig Diagnostic Catheter was advanced over the wire and used for Ventriculography. EDP Sample taken: LV 153/-5,27; HR: 101 BPM; SpO2: 95%. LV gram performed in BARON @ 10 mL/second for a total of 30 mL. EDP Sample taken: LV 142/6,20; HR: 117 BPM; SpO2: 95%. Pullback taken: LV 138/6,18; AO 144/80(103); Mean: 0mmHg, Peak to Peak: 0mmHg, SEP: 9sec/min; HR: 114 BPM; SpO2: 95%. Dr Allan arrived to view films. Patient's family updated. Dr. Allan scrubbed in to perform intervention. Inventory is [facility] 6 FR XB 3.5 GUIDE. Inventory is [employer] [place] XT .014 190cm Str. Guidewire. Catheter removed over the exchange wire. 6 tanz[place] XB 3.5 guide catheter was inserted over the wire. eTec guidewire was advanced through the guide catheter to lesion in the prox LAD. Inflation Number : 1 [place] [employer] SARAH 4.0X15 EHRMAN -Lot Number# [id number] (exp date 04/15/2021) was prepped and advanced across the Prox LAD. The stent was deployed at 12 CARY for 0:49 seconds. Results checked. Stent balloon out over wire. Results checked. Wire out. Guide catheter out. Physician scrubbed out. A TR Band was successful obtaining hemostatsis at the Right Radial artery insertion site. TR band placed. Hemostasis obtained. Post Procedure: Pulses reassessed and unchanged. PERRLA. Strong, equal hand auger operator bilaterally. No VTE prophylaxis required. Medication's Wasted: Lidocaine 1% = 18 mL. Medication's Wasted: Nitro = 49.8 mg. Medication's Wasted: Heparin = 3000 units. Medication's Wasted: Other = pepcid 10 mg. Medication's Wasted: Other = benadryl 25 mg. Medication's Wasted: Other = cardene 22 mg. Total IV fluids: 100 mL. PCI Indication: NSTE. Post-op diagnosis: NSTEMI. Complications: none. Estimated blood loss: 5mL-10mL. Contrast type used: Omnipaque 300 mgI/mL, 500 mL bottle. Procedure completed. Patient transferred by wheelchair to 1st floor. Vital chart was stopped. Site: Right Radial artery Sheath Size: 6 Fr Hemostasis Method: TR Band Hemostasis Success: Successful Complication Findings: No complications occurred during the procedure. Intra/Post-Procedure Events Stroke - Undetermined: No Cardiac Arrest: No Procedure Medications Start: 4:29 PM Stop: 4:29 PM Medication: Benadryl Amount: 25 mg Route: I.V. Start: 4:37 PM Stop: 4:37 PM Medication: Versed Amount: 1 mg Route: I.V. Start: 4:37 PM Stop: 4:37 PM Medication: Fentanyl Amount: 50 mcg Route: I.V. Start: 4:42 PM Stop: 4:42 PM Medication: Hydrocortisone (Solu-Cortef) Amount: 100 Route: I.V. Start: 4:42 PM Stop: 4:42 PM Medication: Nitrogylcerin Amount: 200 mcg Route: I.A. Start: 4:43 PM Stop: 4:43 PM Medication: Verapamil Amount: 5 mg Route: I.A. Start: 4:44 PM Stop: 4:44 PM Medication: Pepcid Amount: 10 mg Route: I.V. Start: 4:49 PM Stop: 4:49 PM Medication: Heparin Amount: 3000 units Route: I.V. Start: 4:50 PM Stop: 4:50 PM Medication: Versed Amount: 1 mg Route: I.V. Start: 5:15 PM Stop: 5:15 PM Medication: Versed Amount: 1 mg Route: I.V. Start: 5:19 PM Stop: 5:19 PM Medication: Cardene Amount: 200 mcg Route: I.C. Start: 5:20 PM Stop: 5:20 PM Medication: Cardene Amount: 200 mcg Route: I.C. Start: 5:21 PM Stop: 5:21 PM Medication: Cardene Amount: 200 mcg Route: I.C. Start: 5:22 PM Stop: 5:22 PM Medication: Fentanyl Amount: 50 mcg Route: I.V. Start: 5:23 PM Stop: 5:23 PM Medication: Cardene Amount: 200 mcg Route: I.C. Start: 5:23 PM Stop: 5:23 PM Medication: Cardene Amount: 200 mcg Route: I.C. Start: 5:25 PM Stop: 5:25 PM Medication: Cardene Amount: 200 mcg Route: I.C. Start: 5:28 PM Stop: 5:28 PM Medication: Cardene Amount: 200 mcg Route: I.C. Start: 5:29 PM Stop: 5:29 PM Medication: Cardene Amount: 200 mcg Route: I.C. Start: 5:31 PM Stop: 5:31 PM Medication: Cardene Amount: 200 mcg Route: I.C. Start: 5:31 PM Stop: 5:31 PM Medication: Versed Amount: 1 mg Route: I.V. Start: 5:33 PM Stop: 5:33 PM Medication: Cardene Amount: 200 mcg Route: I.C. Start: 5:37 PM Stop: 5:37 PM Medication: Aggrastat 12.5 mg/250 mL Amount: 72.5 ml Start: 5:38 PM Stop: 5:38 PM Medication: Aggrastat 12.5 mg/250 mL Amount: 26.1 ml/hr Route: I.V. drip Start: 5:39 PM Stop: 5:39 PM Medication: Fentanyl Amount: 50 mcg Route: I.V. Start: 5:41 PM Stop: 5:41 PM Medication: Cardene Amount: 400 mcg Route: I.C. Start: 5:43 PM Stop: 5:43 PM Medication: Cardene Amount: 400 mcg Route: I.C. Start: 5:44 PM Stop: 5:44 PM Medication: Cardene Amount: 200 mcg Route: I.C. Start: 5:49 PM Stop: 5:49 PM Medication: Heparin Amount: 2000 units Route: I.V. I, the attending physician, have reviewed and verified all procedure medications. Yes, all medications given per verbal order History/Risk Factors Hypertension: Yes Dyslipidemia: Yes Peripheral Arterial Disease (PAD): No Myocardial Infarction (OK): No Obesity: Yes Renal Disease: No Tobacco Use: Current/Recent(w/in 1 year) Prior Interventions PCI: No CABG: No Valve Surgery: No Report Signatures Diagnostic Workflow - Finalized by:Dr Marce Matthew MD [facility] on 08/03/2019 6:26:19 PM Interventional Workflow - Finalized by: Dr. Ger Allan MD on 08/03/2019 6:02:50 PM
[2019-08-03] MEDS: sodium chloride 0.9% 1,000 ML 100 ML IV (19:13)
[2019-08-03 20:25] LABS: Glucose Point of Care 283 mg/dL (70-110)
--- NOTE | 2019-08-03 20:45 | PC.NURSE ---
Began taking air out of TR band at 1915 per order. 2 ml taken out around every 15 minutes. TR band removed. VSS. Dressing applied to right wrist. Small bruise noted to right wrist, but no drainage or hematoma. Will continue to monitor.
[2019-08-04] VITALS (82 sets, daily range): BP systolic 100–140; BP diastolic 64–90; PULSE 41–117; RESP 0–38; TEMP 36.7–37.3; O2SAT 94–96
[2019-08-04 04:09] LABS: Basophils % 0.3 %; Eosinophils # 0.1 10^3/uL (0.0-0.8); Eosinophils % 0.9 %; Hematocrit 43.6 % (37.0-47.0); Hemoglobin 14.1 g/dL (11.5-15.3); Lymphocytes # 1.9 10^3/uL (0.8-4.8); Mean Corpuscular HGB Conc 32.3 g/dL (30.0-36.0); Mean Corpuscular Hemoglobin 28.3 pg (28.0-34.0); Mean Corpuscular Volume 87.6 fL (81-99); Mean Platelet Volume 10.8 fL (7.4-10.4); Monocytes # 0.5 10^3/uL (0.2-0.9); Neutrophils # 6.2 10^3/uL (1.8-7.7); Neutrophils % 70.6 %; Nucleated Red Blood Cells % 0 %; Platelet Count 121 10^3/cmm (130-400); Red Blood Count 4.98 10^6/uL (4.1-5.3); Red Cell Distribution Width 14.6 % (12.1-15.1); White Blood Count 8.8 10^3/uL (4.0-10.0)
[2019-08-04 04:29] LABS: Alanine Aminotransferase 48 U/L (0-33); Albumin Level 3.6 g/dL (3.5-5.2); Alkaline Phosphatase 138 IU/L (35-105); Anion Gap 13.1 (5-19); Aspartate Amino Transferase 91 U/L (0-32); Blood Urea Nitrogen 9 mg/dL (6-20); Calcium 9.5 mg/dL (8.5-10.5); Carbon Dioxide 28 mmol/L (22-29); Chloride 102 mmol/L (98-107); Globulin 3.7 g/dL (1.3-4.6); Glomerular Filtration Rate 130.6 mL/min (90-130); Glucose 280 mg/dL (65-115); Osmolality Calculated 294 mOsm/kg (285-295); Potassium 4.1 mmol/L (3.5-5.1); Sodium 139 mmol/L (136-145); Total Bilirubin 1.2 mg/dL (0.15-1.2); Total Protein 7.3 g/dL (6.6-8.7)
[2019-08-04 07:11] LABS: Glucose Point of Care 220 mg/dL (70-110)
--- NOTE | 2019-08-04 09:39 | ECG_ITS ---
Measurements Intervals [place] Rate: 104 P: 51 NJ: 132 QRS: -20 QRSD: 98 T: 111 QT: 330 QTc: 434 SINUS TACHYCARDIA LOW QRS VOLTAGE IN PRECORDIAL LEADS [QRS DEFLECTION < 1.0 mV IN CHEST LEADS] POSSIBLE ANTERIOR MYOCARDIAL INFARCTION [30 ms Q WAVE IN V3/V4, OR R < 0.2 mV IN V4], OF INDETERMINATE AGE Compared to ECG 08/03/2019 15:41:48 Low QRS voltage now present Myocardial infarct finding still present Electronically Signed On 08-04-2019 19:33:00 CDT by Ger Allan M.D. [email or web address]
--- NOTE | 2019-08-04 09:40 | PC.NURSE ---
Nurse called for patient stated mild chest pain rated 4/[address] franklin notified, Instructions to notify Dr antoine
--- NOTE | 2019-08-04 10:00 | PC.NURSE ---
Dr. Matthew notified of events continue to monitor
[2019-08-04] MEDS: metoprolol succinate ER (24 HR) 25 mg Tablet PO (10:13)
[2019-08-04] MEDS: aspirin 81 mg EC Tablet PO (10:13)
[2019-08-04] MEDS: clopidogrel 75 mg Tablet PO (10:13)
[2019-08-04] MEDS: atorvastatin 40 mg Tablet 80 MG PO (10:13)
[2019-08-04] MEDS: spironolactone 25 mg Tablet PO (10:14)
--- NOTE | 2019-08-04 10:30 | PC.CHAP ---
Pastoral Care Encounter/Spiritual Assessment Type of Contact [] Declined sterile processing manager visit [] Patient/Family/Request visit [] Outpatient visit [] Follow-up visit [] Physician referral [] Code/Alert [x] Routine visit [] Staff referral [] Actively dying [] Patient sleeping [x] Family support [] [] Out of room [] Palliative care [] [] Receiving care in room [] Pre-surgical visit [] Trauma [] Long length of stay [] ICU visit [] Other: Relational/Emotional Strength [] Patient feels connected with others/family/visitors/staff [] Distress [] Loneliness/isolation [] Abandonment Spirituality of Patient [x] Person of Marlee [x] Attends Buddhist of their Marlee [x] Believes in Prayer [] Reads Bible or Baptism materials [] There are Spiritual issues to be addressed [employer] Interventions [x] Prayer [] Active listening [] Non-anxious presence [] Spiritual/emotional support [] Crisis/trauma care [] Spiritual counseling [] Bereavement support [] Provided bereavement packet [] Provided Bible/devotional materials [] Provided toy/stuffed animal, coloring book to patient or family member [] Provided Communion [] Anointing/Farner [] Salvation [x] Completed spiritual assessment [] Other: Impact on Illness or Injury [] Angry [] Fearful [] Anxious [] Often cries [] Exhaustion [] Unable to work [] Unable to attend orthodoxy [] Unable to walk/stand [] Unable to read [] Unable to drive [] Unable to eat/drink [] Unable to sleep [] Unable to be with family [] Patient intubated [] Other: 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 family present for full support Time spent with patient 15 min
--- NOTE | 2019-08-04 11:14 | DCPLANNER ---
Per rounding, possible d/c later today.
[2019-08-04 11:25] LABS: Glucose Point of Care 292 mg/dL (70-110)
--- NOTE | 2019-08-04 13:45 | PC.NURSE ---
Dr antoine at bedside verbal orders given for life vest for 3 months
--- NOTE | 2019-08-04 14:22 | PM.PN ---
Subjective Subjective: Interval history: The patient is feeling better. She still has some chest discomfort. The coronary intervention history was difficult. The left and descending artery had a high clot burden. The intervention was difficult because of this. The EKG does not reveal any new changes. No new arrhythmias on the monitor. Vitals/I&O/Wt Last Vital Signs Temp 99.1 F 08/04/19 03:00 Pulse 105 H 08/04/19 10:30 Resp 19 H 08/04/19 10:30 BP 126/85 08/04/19 10:30 Pulse Ox 94 08/04/19 07:15 08/03/19 08/04/19 08/04/19 22:59 06:59 14:59 Intake Total 400 / 400 863.333 / 1263.333 600 / 600 Balance 400 / 400 863.333 / 1263.333 600 / 600 Weight last 48 hrs Weight 320 lb Physical Exam Narrative: EXAM NARRATIVE: GENERAL: The patient is alert and oriented times three. Not in any acute distress. HEENT: No significant pallor, icterus or lymphadenopathy. The pupils are reactant to light. Oral cavity: There are no mucous membrane lesions. NECK: Trachea appears to be central. No masses noted. No JVD or thyromegaly appreciated. No carotid bruit. RESPIRATORY: Chest is symmetrical. No intercostals muscle retraction or any accessory muscle activation. There is no chest wall tenderness. Breath sounds are heard bilaterally. No rales or rhonchi heard. No evidence of any consolidation. BREASTS: Deferred. HEART: The PMI could not be palpated. No other palpable precordial events. S1 and S2 are normal. No S3 or S4 heard. No pericardial rub or any click heard. ABDOMEN: No vessel pulsations or distention. No tenderness. No organomegaly appreciated. No abdominal bruit. Bowel sounds are normally heard. : Deferred. RECTAL: Deferred. LYMPHATIC: No lymphadenopathy noted in the neck or groin. EXTREMITIES: No edema or cyanosis. No clubbing. The pulses are symmetrical bilaterally. No hematoma or bleeding at the arterial puncture site. MUSCULOSKELETAL: No acute joint deformities or swelling SKIN: There are no significant scars or skin rash noted. NEUROPSYCHIATRIC: The patient is alert and oriented x3. Appears to be in a good mood. The higher functions are grossly within normal limits. No tremors or rigidity noted. Data : 08/05/19 03:55 08/05/19 03:55 A&P Assessment and plan (1) Non-ST elevation GA (NSTEMI): The angiogram findings as mentioned above. We will be optimizing her medical treatment. Status: Acute Code(s): I21.4 - Non-ST elevation (NSTEMI) myocardial infarction (2) Ischemic cardiomyopathy: I may start her on losartan 50 mg p.o. now and daily. Also will start on spironolactone and Lasix. A low-dose of beta-dilcia also may be started. In view of the patient's severe LV dysfunction, she may benefit from a LifeVest. This was discussed with patient. She is willing to go for this. We will go ahead and schedule this. I also may do a troponin and EKG today. Status: Acute Code(s): I25.5 - Ischemic cardiomyopathy (3) Atherosclerotic heart disease of [place] coronary artery with unstable angina pectoris: Coronary angiogram findings as mentioned above Status: Acute Code(s): I25.110 - Atherosclerotic heart disease of [place] coronary artery with unstable angina pectoris (4) Morbid obesity with BMI of 45.0-49.9, adult: Lifestyle modification were discussed Status: Acute Code(s): E66.01 - Morbid (severe) obesity due to excess calories; Z68.42 - Body mass index (BMI) 45.0-49.9, adult (5) Dyslipidemia associated with type 2 diabetes mellitus: Continue on the statin. Status: Acute Code(s): E11.69 - Type 2 diabetes mellitus with other specified complication; E78.5 - Hyperlipidemia, unspecified (6) Benign essential hypertension with target blood pressure below 140/90: Blood pressure seems to be getting under control. We will optimize the medications. Status: Acute Code(s): I10 - Essential (primary) hypertension Additional A&P Information After reviewing the above and also based on the patient clinical progress, further management decisions will be made. Attestations Medical Necessity Statement*: Patient requires continued hospital stay for close monitoring and further management Coding Level of Care Code Acute Environmental Communications Specialist for [facility] Fwd Diagnoses Non-ST elevation GA (NSTEMI) I21.4 Ischemic cardiomyopathy I25.5 Atherosclerotic heart disease of [place] coronary artery with unstable angina pectoris I25.110 Morbid obesity with BMI of 45.0-49.9, adult E66.01; Z68.42 Dyslipidemia associated with type 2 diabetes mellitus E11.69; E78.5 Benign essential hypertension with target blood pressure below 140/90 I10
[2019-08-04 16:48] LABS: Glucose Point of Care 222 mg/dL (70-110)
[2019-08-04] MEDS: pregabalin 150 mg Capsule PO (17:39)
[2019-08-04] MEDS: insulin glargine 100 units/1 mL 50 UNIT SUBCUT (20:35)
--- NOTE | 2019-08-04 20:57 | PM.PN ---
Subjective Subjective: Interval history: This morning she is feeling better, still having discomfort about 4/10 substernal in the lower chest. Vitals/I&O/Wt Last Vital Signs Temp 98.3 F 08/04/19 20:26 Pulse 100 08/04/19 20:26 Resp 18 08/04/19 20:26 BP 128/86 08/04/19 20:26 Pulse Ox 95 08/04/19 20:26 08/04/19 08/04/19 08/04/19 06:59 14:59 22:59 Intake Total 863.333 / 1263.333 600 / 600 376.667 / 976.667 Balance 863.333 / 1263.333 600 / 600 376.667 / 976.667 Weight last 48 hrs Weight 145.15 kg Physical Exam Const: COMMON NORMALS: no apparent distress and oriented x3 NUTRITIONAL APPEARANCE: obese OTHER: She is awake, alert, pleasant, conversant. Family at bedside. HENMT: COMMON NORMALS: oropharynx normal Neck/C-Spine: COMMON NORMALS: no JVD Resp: COMMON NORMALS: normal respiratory effort and clear to auscultation bilaterally AUSCULTATION: clear to auscultation bilaterally Cardio: COMMON NORMALS: no JVD, regular rhythm, S1 normal heart sound, S2 normal heart sound and no murmurs RHYTHM: regular rhythm HEART SOUNDS: S1 normal and S2 normal GI: COMMON NORMALS: normal to inspection, nondistended, normoactive bowel sounds, soft to palpation and non-tender PALPATION: Yes soft Extremity: COMMON NORMALS: no joint enlargement and no pedal edema OTHER: Right wrist with small amount of bruising at time site of access, no hematoma. No pulsatile mass. Neuro: COMMON NORMALS: oriented x3 and moves all extremities Skin: COMMON NORMALS: no rashes or lesions noted GENERAL SKIN EXAM: no rashes or lesions noted Data : 08/04/19 03:00 08/04/19 03:00 A&P Assessment and plan (1) Non-ST elevation ND (NSTEMI): Status post coronary geography and stenting of LAD with a high clot burden. She is feeling better, however, still 4/10 discomfort substernal in the lower chest. Appreciate cardiology follow-up regarding safe discharge. Discussed with her regarding smoking cessation and lifestyle modification. Status: Acute Code(s): I21.4 - Non-ST elevation (NSTEMI) myocardial infarction (2) Ischemic contracture of left ventricle syndrome: ARB, spironolactone, Lasix, beta-dilcia, other treatments for CAD per cardiology. With severity of cardiomyopathy cardiology discussing with her and arranging for LifeVest. Status: Deleted Code(s): I50.1 - Left ventricular failure, unspecified (3) Morbid obesity: Follow-up with primary care provider regarding weight loss options. Status: Acute Code(s): E66.01 - Morbid (severe) obesity due to excess calories (4) Shortness of breath on exertion: Status: Acute Code(s): R06.02 - Shortness of breath (5) Cigarette smoker motivated to quit: Discussed smoking cessation with her for 5 minutes. Highly encouraged to quit. Discussed options for nicotine replacement. She would be interested in trying nicotine patches and lozenges. Status: Acute Code(s): F17.210 - Nicotine dependence, cigarettes, uncomplicated (6) Diabetes: Continue sliding scale insulin. Add insulin glargine, for now 40 units since regular insulin is not available in the hospital. Continue regular insulin regimen after discharge. Status: Acute Qualifiers: Diabetes mellitus type: type 2 Diabetes mellitus mcfp insulin use: with watermelon inspector use Diabetes mellitus complication status: without complication Qualified Code(s): E11.9 - Type 2 diabetes mellitus without complications; Z79.4 - skilled nursing (current) use of insulin Code(s): E11.9 - Type 2 diabetes mellitus without complications Additional A&P Information CHANTEL: Patient uses CPAP at night Attestations Medical Necessity Statement*: Continue admission for assessment and management following non-STEMI, cardiomyopathy. Coding Level of Care Code Acute Fpga Design Engineer for [facility] Fwd Diagnoses Non-ST elevation ND (NSTEMI) I21.4 Ischemic contracture of left ventricle syndrome I50.1 Morbid obesity E66.01 Shortness of breath on exertion R06.02 Cigarette smoker motivated to quit F17.210 Diabetes E11.9; Z79.4 Diabetes mellitus type: type 2 Diabetes mellitus watermelon inspector insulin use: with watermelon inspector use Diabetes mellitus complication status: without complication
[2019-08-05] VITALS (8 sets, daily range): BP systolic 107–117; BP diastolic 65–73; PULSE 78–101; RESP 14–25; TEMP 36.6–36.8; O2SAT 92–96
[2019-08-05 02:48] LABS: Glucose Point of Care 247 mg/dL (70-110)
[2019-08-05 04:11] LABS: Basophils # 0.1 10^3/uL (0.0-0.1); Basophils % 0.8 %; Eosinophils # 0.2 10^3/uL (0.0-0.8); Eosinophils % 2.7 %; Hematocrit 43.5 % (37.0-47.0); Hemoglobin 13.7 g/dL (11.5-15.3); Lymphocytes # 1.5 10^3/uL (0.8-4.8); Lymphocytes % 25.8 %; Mean Corpuscular HGB Conc 31.5 g/dL (30.0-36.0); Mean Corpuscular Hemoglobin 28.4 pg (28.0-34.0); Mean Corpuscular Volume 90.2 fL (81-99); Monocytes # 0.5 10^3/uL (0.2-0.9); Monocytes % 8.2 %; Neutrophils # 3.7 10^3/uL (1.8-7.7); Neutrophils % 62.2 %; Nucleated Red Blood Cells % 0 %; Platelet Count 94 10^3/cmm (130-400); Red Blood Count 4.82 10^6/uL (4.1-5.3); Red Cell Distribution Width 14.9 % (12.1-15.1); White Blood Count 5.9 10^3/uL (4.0-10.0)
[2019-08-05 04:25] LABS: Alanine Aminotransferase 36 U/L (0-33); Albumin Level 3.1 g/dL (3.5-5.2); Alkaline Phosphatase 142 IU/L (35-105); Anion Gap 13.8 (5-19); Aspartate Amino Transferase 41 U/L (0-32); Blood Urea Nitrogen 11 mg/dL (6-20); Calcium 9.2 mg/dL (8.5-10.5); Carbon Dioxide 26 mmol/L (22-29); Chloride 101 mmol/L (98-107); Globulin 4.1 g/dL (1.3-4.6); Glomerular Filtration Rate 130.6 mL/min (90-130); Glucose 242 mg/dL (65-115); Osmolality Calculated 288 mOsm/kg (285-295); Potassium 3.8 mmol/L (3.5-5.1); Sodium 137 mmol/L (136-145); Total Bilirubin 1.6 mg/dL (0.15-1.2); Total Protein 7.2 g/dL (6.6-8.7)
[2019-08-05 06:32] LABS: Glucose Point of Care 207 mg/dL (70-110)
--- NOTE | 2019-08-05 08:25 | US_ITS ---
WS: [id number] Gallbladder ultrasound, 08/05/2019 Clinical Data: hepatobiliary Comparison: Right upper quadrant ultrasound, 01/10/2006. Findings: The gallbladder is absent The common bile duct is 0.6 cm and there are no intrahepatic ductal abnorma lities. Liver shows no cysts, masses or dilated intrahepatic ducts. The liver is enlarged measuring 22.74 cm with fatty infiltration. The pancreas is not obscured by overlying bowel gas and no cyst, pseudocyst, or evidence of pancreati tis is noted. Right kidney measures 5.44 x 6.29 x 12.6 cm and no cyst, masses or hydronephrosis can be seen. The aorta and inferior vena cava show no vascular abnormalities. US/US abdomen limited [id number] Impression: 1. Absent gallbladder. 2. Hepatomegaly with fatty infiltration of the liver.
[2019-08-05] MEDS: aspirin 81 mg EC Tablet PO (09:22)
[2019-08-05] MEDS: venlafaxine ER (24HR) 75 mg Capsule PO (09:22)
[2019-08-05] MEDS: pregabalin 150 mg Capsule PO ×2 (09:22→17:10)
[2019-08-05] MEDS: clopidogrel 75 mg Tablet PO (09:22)
[2019-08-05] MEDS: metoprolol succinate ER (24 HR) 25 mg Tablet PO (09:22)
[2019-08-05] MEDS: pantoprazole DR 40 mg Tablet PO (09:22)
[2019-08-05] MEDS: spironolactone 25 mg Tablet PO (09:22)
[2019-08-05] MEDS: atorvastatin 40 mg Tablet 80 MG PO (09:31)
--- NOTE | 2019-08-05 09:34 | PC.NURSE ---
Call placed to Dr. Rowley to clarify NPO status with meds due. Instructions to give meds.
[2019-08-05 11:49] LABS: Glucose Point of Care 228 mg/dL (70-110)
--- NOTE | 2019-08-05 12:23 | P.PN_ITS ---
Subjective Subjective: Interval history: Patient is feeling much better. She has no chest pain. No shortness of breath. Seems to be ambulating on telemetry. Medications: Reviewed: Yes Medication Review Details: Current Medications Acetaminophen (Tylenol) 650 mg PO Q4H PRN PRN Reason: MILD PAIN OR INCREASE TEMP Albuterol Sulfate (Ventolin) 2 puff INHALATION Q6H PRN PRN Reason: Shortness Of Breath Aspirin (Aspirin Ec) 81 mg PO DAILY [facility] Last Admin: 08/05/19 09:22 Dose: 81 mg Documented by: Atorvastatin Calcium (Lipitor) 80 mg PO DAILY [facility] Last Admin: 08/05/19 09:31 Dose: 80 mg Documented by: Clopidogrel Bisulfate (Plavix) 75 mg PO DAILY [facility] Last Admin: 08/05/19 09:22 Dose: 75 mg Documented by: Sodium Chloride (Sodium Chloride 0.9%) 1,000 mls @ 100 mls/hr IV .Q10H [facility] Last Infusion: 08/04/19 20:35 Dose: Infused Documented by: Tirofiban/Sodium Chloride (Aggrastat) 12.5 mg in 250 mls @ 0 mls/hr IV .Q0M [facility]; Protocol Insulin Aspart (Novolog) 0 unit SUBCUT WM&BEDTIME [facility]; Protocol Last Admin: 08/05/19 12:03 Dose: 8 unit Documented by: Insulin Glargine (Lantus) 50 unit SUBCUT BEDTIME [facility] Last Admin: 08/04/19 20:35 Dose: 50 unit Documented by: Metoprolol Succinate (Toprol Xl) 25 mg PO DAILY [facility] Last Admin: 08/05/19 09:22 Dose: 25 mg Documented by: Nitroglycerin (Nitrostat) 0.4 mg SUBLINGUAL Q5M PRN PRN Reason: CHEST PAIN Last Admin: 08/03/19 02:39 Dose: 0.4 mg Documented by: Non-Formulary Medication Vitamin D3 1,250 each PO DAILY [facility] Last Admin: 08/05/19 09:31 Dose: Not Given Documented by: Ondansetron HCl (Zofran) 4 mg IVP Q4H PRN PRN Reason: NAUSEA AND VOMITING Pantoprazole Sodium (Protonix) 40 mg PO DAILY [facility] Last Admin: 08/05/19 09:22 Dose: 40 mg Documented by: Spironolactone (Aldactone) 25 mg PO DAILY [facility] Last Admin: 08/05/19 09:22 Dose: 25 mg Documented by: Venlafaxine HCl (Effexor Xr) 75 mg PO DAILY [facility] Last Admin: 08/05/19 09:22 Dose: 75 mg Documented by: Vitals/I&O/Wt Last Vital Signs Temp 97.9 F 08/05/19 03:42 Pulse 98 08/05/19 11:00 Resp 14 08/05/19 11:00 BP 113/73 08/05/19 11:00 Pulse Ox 94 08/05/19 11:00 08/04/19 08/05/19 08/05/19 22:59 06:59 14:59 Intake Total 376.667 / 976.667 500 / 1476.667 120 / 120 Balance 376.667 / 976.667 500 / 1476.667 120 / 120 Weight last 48 hrs Weight 312 lb 6.4 oz Physical Exam Narrative: EXAM NARRATIVE: GENERAL: The patient is alert and oriented times three. Not in any acute distress. HEENT: No significant pallor, icterus or lymphadenopathy.Oral cavity: There are no mucous membrane lesions. NECK: Trachea appears to be central. No masses noted. No JVD or thyromegaly appreciated. RESPIRATORY: Chest is symmetrical. No intercostals muscle retraction or any accessory muscle activation. There is no chest wall tenderness. Breath sounds are heard bilaterally. No rales or rhonchi heard. No evidence of any consolidation. BREASTS: Deferred. HEART: The heart sounds are normal. No S3 or S4. No significant murmurs. No pericardial rub ABDOMEN: No vessel pulsations or distention. No tenderness. No organomegaly appreciated. Bowel sounds are normally heard. : Deferred. RECTAL: Deferred. LYMPHATIC: No lymphadenopathy noted in the neck or groin. EXTREMITIES: No edema or cyanosis. No clubbing. Peripheral pulses are palpated in fairly good volume and amplitude. The radial arterial puncture site appears to have no hematoma or bleeding MUSCULOSKELETAL: No acute joint deformities or swelling SKIN: There are no significant scars or skin rash noted. NEUROPSYCHIATRIC: The patient is alert and oriented x3. Appears to be in a good mood. No tremors or rigidity noted. Data : 08/05/19 03:55 08/05/19 03:55 EKG 1: My Interpretation: The EKG showed a sinus tachycardia with poor R wave progression. Features of old anteroseptal SD. Nonspecific T wave changes in the lateral leads. Compared to the previous EKG, there may not be a significant change. A&P Assessment and plan (1) Non-ST elevation [place] (NSTEMI): Patient may continue on the current medications including the Plavix. Status: Acute Code(s): I21.4 - Non-ST elevation (NSTEMI) myocardial infarction (2) Ischemic cardiomyopathy: A LifeVest was ordered, for further management of her condition. We will be optimizing her medical treatment over the next 3 months. We will reevaluate the LV ejection fraction after 3 months. Based on the findings, further management decisions will be made. We will continue to optimize the medications. I may start her on losartan 25 mg p.o. now and daily. If she tolerates the medication fairly well, we may try her on Entresto as an outpatient. Status: Acute Code(s): I25.5 - Ischemic cardiomyopathy (3) Atherosclerotic heart disease of [place] coronary artery with unstable angina pectoris: Cardiac catheterization findings as mentioned above. Management as mentioned above Status: Acute Qualifiers: [place] vs. transplanted heart: [place] heart Qualified Code(s): I25.110 - Atherosclerotic heart disease of [place] coronary artery with unstable angina pectoris Code(s): I25.110 - Atherosclerotic heart disease of [place] coronary artery with unstable angina pectoris (4) Dyslipidemia associated with type 2 diabetes mellitus: Patient may continue on the current dose of atorvastatin. Status: Acute Code(s): E11.69 - Type 2 diabetes mellitus with other specified complication; E78.5 - Hyperlipidemia, unspecified (5) Benign essential hypertension with target blood pressure below 140/90: Blood pressure is under control. Continue to optimize medications. Status: Acute Code(s): I10 - Essential (primary) hypertension Additional A&P Information If the patient continues to remain stable, may be discharged home today. May continue on the current medications. Will be seen at the care services next week, by the nurse practitioner. I may see her in the office in 3 weeks. Attestations Medical Necessity Statement*: Possible discharge home today Coding Level of Care Code Acute Manager [place] for g Fwd Diagnoses Non-ST elevation [place] (NSTEMI) I21.4 Ischemic cardiomyopathy I25.5 Atherosclerotic heart disease of [place] coronary artery with unstable angina pectoris I25.110 [place] vs. transplanted heart: [place] heart Dyslipidemia associated with type 2 diabetes mellitus E11.69; E78.5 Benign essential hypertension with target blood pressure below 140/90 I10
[2019-08-05] MEDS: acetaminophen 325 mg Tablet 650 MG PO (12:49)
[2019-08-05 16:49] LABS: Glucose Point of Care 205 mg/dL (70-110)
[2019-08-05] MEDS: losartan 50 mg Tablet 25 MG PO (17:10)
--- NOTE | 2019-08-05 19:06 | PM.PN ---
Subjective Subjective: Interval history: Today she is feeling well. She denies any chest pain. She walked in the hallway. Denies abdominal pain. Vitals/I&O/Wt Last Vital Signs Temp 97.9 F 08/05/19 03:42 Pulse 90 08/05/19 15:00 Resp 18 08/05/19 15:00 BP 111/65 08/05/19 17:10 Pulse Ox 96 08/05/19 15:00 08/05/19 08/05/19 08/05/19 06:59 14:59 22:59 Intake Total 500 / 1476.667 120 / 120 120 / 240 Balance 500 / 1476.667 120 / 120 120 / 240 Weight last 48 hrs Weight 141.702 kg Physical Exam Const: COMMON NORMALS: no apparent distress and oriented x3 NUTRITIONAL APPEARANCE: obese OTHER: She is awake, alert, pleasant, conversant. Family at bedside. HENMT: COMMON NORMALS: oropharynx normal Neck/C-Spine: COMMON NORMALS: no JVD Resp: COMMON NORMALS: normal respiratory effort and clear to auscultation bilaterally AUSCULTATION: clear to auscultation bilaterally Cardio: COMMON NORMALS: no JVD, regular rhythm, S1 normal heart sound, S2 normal heart sound and no murmurs RHYTHM: regular rhythm HEART SOUNDS: S1 normal and S2 normal GI: COMMON NORMALS: normal to inspection, nondistended, normoactive bowel sounds, soft to palpation and non-tender PALPATION: Yes soft Extremity: COMMON NORMALS: no joint enlargement and no pedal edema OTHER: Right wrist with small amount of bruising at time site of access, no hematoma. No pulsatile mass. Neuro: COMMON NORMALS: oriented x3 and moves all extremities Skin: COMMON NORMALS: no rashes or lesions noted GENERAL SKIN EXAM: no rashes or lesions noted Data : 08/05/19 03:55 08/05/19 03:55 A&P Assessment and plan (1) Non-ST elevation [place] (NSTEMI): Today no further chest discomfort. Walked in hallway. Asymptomatic. Feeling well. Currently awaiting fitting for LifeVest. Status post coronary angiography and stenting of LAD with a high clot burden. Discussed with her regarding smoking cessation and lifestyle modification. Status: Acute Code(s): I21.4 - Non-ST elevation (NSTEMI) myocardial infarction (2) Ischemic contracture of left ventricle syndrome: ARB, spironolactone, Lasix, beta-dilcia, other treatments for CAD per cardiology. With severity of cardiomyopathy cardiology discussing with her and arranging for LifeVest. Awaiting insurance approval. Status: Deleted Code(s): I50.1 - Left ventricular failure, unspecified (3) Morbid obesity: Follow-up with primary care provider regarding weight loss options. Status: Acute Code(s): E66.01 - Morbid (severe) obesity due to excess calories (4) Shortness of breath on exertion: Status: Acute Code(s): R06.02 - Shortness of breath (5) Cigarette smoker motivated to quit: Discussed smoking cessation with her for 5 minutes. Highly encouraged to quit. Discussed options for nicotine replacement. She would be interested in trying nicotine patches and lozenges. Status: Acute Code(s): F17.210 - Nicotine dependence, cigarettes, uncomplicated (6) Diabetes: Continue sliding scale insulin. Add insulin glargine, for now 40 units since regular insulin is not available in the hospital. Continue regular insulin regimen after discharge. 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 Suspect liver primary changes are related to this. She is status post cholecystectomy. No CBD dilation, sludge or apparent stone. Discussed diet, lifestyle modification. Alcohol avoidance. Please continue to follow-up and reassess for any progression to fibrosis or cirrhosis. Discussed options regarding weight loss. Status: Acute Code(s): K76.0 - Fatty (change of) liver, not elsewhere classified Additional A&P Information CHANTEL: Patient uses CPAP at night Attestations Medical Necessity Statement*: Continue admission for assessment of management of non-STEMI, severe cardiomyopathy, arrangements for LifeVest and discharge. Coding Level of Care Code Acute [employer] for Brooke Stephen Diagnoses Non-ST elevation [place] (NSTEMI) I21.4 Ischemic contracture of left ventricle syndrome I50.1 Morbid obesity E66.01 Shortness of breath on exertion R06.02 Cigarette smoker motivated to quit F17.210 Diabetes E11.9; Z79.4 Diabetes mellitus type: type 2 Diabetes mellitus group home insulin use: with group home use Diabetes mellitus complication status: without complication Nonalcoholic fatty liver disease K76.0
[2019-08-05] MEDS: insulin glargine 100 units/1 mL 50 UNIT SUBCUT (20:32)
[2019-08-05 21:18] LABS: Glucose Point of Care 298 mg/dL (70-110)
[2019-08-06 03:00] VITALS: BP 116/73; PULSE 72; RESP 27; TEMP 36.6; O2SAT 93
[2019-08-06 04:20] LABS: Basophils # 0.1 10^3/uL (0.0-0.1); Basophils % 0.9 %; Eosinophils # 0.2 10^3/uL (0.0-0.8); Hematocrit 40.5 % (37.0-47.0); Hemoglobin 12.8 g/dL (11.5-15.3); Lymphocytes # 1.7 10^3/uL (0.8-4.8); Lymphocytes % 26.9 %; Mean Corpuscular HGB Conc 31.6 g/dL (30.0-36.0); Mean Corpuscular Hemoglobin 28.6 pg (28.0-34.0); Mean Corpuscular Volume 90.4 fL (81-99); Monocytes # 0.5 10^3/uL (0.2-0.9); Monocytes % 7.5 %; Neutrophils # 3.9 10^3/uL (1.8-7.7); Neutrophils % 61.5 %; Nucleated Red Blood Cells % 0 %; Platelet Count 96 10^3/cmm (130-400); Red Blood Count 4.48 10^6/uL (4.1-5.3); Red Cell Distribution Width 14.6 % (12.1-15.1); White Blood Count 6.4 10^3/uL (4.0-10.0)
[2019-08-06 04:36] LABS: Alanine Aminotransferase 28 U/L (0-33); Albumin Level 3.1 g/dL (3.5-5.2); Alkaline Phosphatase 143 IU/L (35-105); Aspartate Amino Transferase 25 U/L (0-32); Blood Urea Nitrogen 13 mg/dL (6-20); Calcium 9.2 mg/dL (8.5-10.5); Carbon Dioxide 27 mmol/L (22-29); Chloride 101 mmol/L (98-107); Globulin 3.7 g/dL (1.3-4.6); Glomerular Filtration Rate 130.6 mL/min (90-130); Glucose 261 mg/dL (65-115); Osmolality Calculated 289 mOsm/kg (285-295); Sodium 137 mmol/L (136-145); Total Bilirubin 1.1 mg/dL (0.15-1.2); Total Protein 6.8 g/dL (6.6-8.7)
[2019-08-06 06:35] LABS: Glucose Point of Care 227 mg/dL (70-110)
[2019-08-06 07:00] VITALS: BP 120/79; PULSE 89; RESP 18; TEMP 36.5; O2SAT 97
--- NOTE | 2019-08-06 08:21 | P.PN_ITS ---
Subjective Subjective: Interval history: [place] was admitted a few days ago with several weeks of chest pain and shortness of breath. She had a significant lesion in the proximal LAD which underwent intervention. When this occurred she had downstream embolization of a large thrombus burden. She suffered from no reflow. I used calcium channel dilcia and Aggrastat down the artery and we placed her on an Aggrastat drip for about 24 hours. She has a low ejection fraction. She has not exhibited any evidence of heart failure or arrhythmias. She has a number of underlying risk factors for heart disease. She has been up in the hallways walking without chest pain or shortness of breath. We are awaiting the approval of a LifeVest. She is a smoker with diabetes, hypertension and dyslipidemia. Medications: Reviewed: Yes Vitals/I&O/Wt Last Vital Signs Temp 97.7 F 08/06/19 07:00 Pulse 89 08/06/19 07:00 Resp 18 08/06/19 07:00 BP 120/79 08/06/19 07:00 Pulse Ox 97 08/06/19 07:00 08/05/19 08/06/19 08/06/19 22:59 06:59 14:59 Intake Total 120 / 240 400 / 640 Balance 120 / 240 400 / 640 Weight last 48 hrs Weight 318 lb 3.2 oz Weight 312 lb 6.4 oz Physical Exam Narrative: EXAM NARRATIVE: GENERAL: In general she looks and feels well HEENT: Exam within normal limits. NECK: Supple without jugular vein distention. The carotid upstroke is normal without bruits. BACK: Exam normal. LUNGS: Clear. HEART: Regular rate and rhythm. ABDOMEN: Benign without organomegaly or tenderness. EXTREMITIES: No edema. NEUROLOGIC: Exam normal. SKIN: Unremarkable. Data : 08/06/19 03:50 08/06/19 03:50 A&P Assessment and plan (1) Ischemic cardiomyopathy: Status: Acute Code(s): I25.5 - Ischemic cardiomyopathy (2) Dyslipidemia associated with type 2 diabetes mellitus: Status: Acute Code(s): E11.69 - Type 2 diabetes mellitus with other specified complication; E78.5 - Hyperlipidemia, unspecified (3) Benign essential hypertension with target blood pressure below 140/90: Status: Acute Code(s): I10 - Essential (primary) hypertension (4) Atherosclerotic heart disease of [place] coronary artery with unstable angina pectoris: Status: Acute Qualifiers: [place] vs. transplanted heart: [place] heart Qualified Code(s): I25.110 - Atherosclerotic heart disease of [place] coronary artery with unstable angina pectoris Code(s): I25.110 - Atherosclerotic heart disease of [place] coronary artery with unstable angina pectoris (5) Non-ST elevation [place] (NSTEMI): Status: Acute Code(s): I21.4 - Non-ST elevation (NSTEMI) myocardial infarction (6) Morbid obesity with BMI of 45.0-49.9, adult: Status: Acute Code(s): E66.01 - Morbid (severe) obesity due to excess calories; Z68.42 - Body mass index (BMI) 45.0-49.9, adult (7) Cigarette smoker motivated to quit: Status: Acute Code(s): F17.210 - Nicotine dependence, cigarettes, uncomplicated (8) Diabetes: Status: Acute Qualifiers: Diabetes mellitus type: type 2 Diabetes mellitus 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 She was on a statin atorvastatin 10 mg daily at home. This should be increased to 80 mg daily. The diltiazem should be discontinued. The beta-dilcia should be continued. Aspirin and Plavix should be continued. She should be kept on an afterload reducing agent. Losartan 25 mg is sufficient. She should also be sent home on the Aldactone 25 mg daily. Follow-up with the nurse practitioner in our office in 7 to 10 days for a right radial artery check and chemistry panel. Follow-up with Vipul in 3 to 4 weeks. Attestations Medical Necessity Statement*: Not applicable Coding Level of Care Code Acute [employer] Observer for Brooke Stephen Diagnoses Ischemic cardiomyopathy I25.5 Dyslipidemia associated with type 2 diabetes mellitus E11.69; E78.5 Benign essential hypertension with target blood pressure below 140/90 I10 Atherosclerotic heart disease of [place] coronary artery with unstable angina pectoris I25.110 [place] vs. transplanted heart: [place] heart Non-ST elevation [place] (NSTEMI) I21.4 Morbid obesity with BMI of 45.0-49.9, adult E66.01; Z68.42 Cigarette smoker motivated to quit F17.210 Diabetes E11.9; Z79.4 Diabetes mellitus type: type 2 Diabetes mellitus termite renewal inspector insulin use: with termite renewal inspector use Diabetes mellitus complication status: without complication
[2019-08-06 08:22] VITALS: BP 120/79
[2019-08-06] MEDS: pantoprazole DR 40 mg Tablet PO (08:22)
[2019-08-06] MEDS: losartan 50 mg Tablet 25 MG PO (08:22)
[2019-08-06] MEDS: atorvastatin 40 mg Tablet 80 MG PO (08:23)
[2019-08-06] MEDS: venlafaxine ER (24HR) 75 mg Capsule PO (08:23)
[2019-08-06] MEDS: metoprolol succinate ER (24 HR) 25 mg Tablet PO (08:23)
[2019-08-06] MEDS: clopidogrel 75 mg Tablet PO (08:23)
[2019-08-06] MEDS: aspirin 81 mg EC Tablet PO (08:23)
[2019-08-06] MEDS: spironolactone 25 mg Tablet PO (08:23)
[2019-08-06] MEDS: pregabalin 150 mg Capsule PO (08:23)
[2019-08-06] MEDS: acetaminophen 325 mg Tablet 650 MG PO ×2 (08:23→14:51)
[2019-08-06 11:00] VITALS: BP 125/81; PULSE 87; RESP 18; TEMP 36.6; O2SAT 94
--- NOTE | 2019-08-06 11:06 | PC.NURSE ---
[facility] HAS DENIED THE PATIENT'S CLAIM TO HAVE LIFE VEST PLACED DUE TO HER ISCHEMIC CARDIOMYOPATHY BECAUSE SHE HAS HAD A RECENT HEART ATTACK AND HAS NOT HAD MEDICAL MANAGEMENT FOR THREE MONTHS. THIS NURSE SPOKE WITH A INSULATION MECHANIC WHO EXPLAINED THIS TO THIS NURSE. DOCUMENTATION FROM [facility] REINFORCES THIS STATEMENT AND IS PLACED IN THE PAPER CHART. ALTHOUGH THIS NURSE TRIED TO REASON WITH THE INSULATION MECHANIC THAT SHE SPOKE WITH ON THE PHONE, HOWEVER HER CLAIM WAS DENIED.
--- NOTE | 2019-08-06 11:18 | PM.DCS ---
Discharge Providers Date of Admission: 08/03/19 13:13 Date of Discharge: August 06, 2019 Attending Provider at Admission: Carolyn Ramon MD Attending Provider at Discharge: Sherley Schultz MD Primary Care Provider: HAI Merlos Diagnoses at Discharge Discharge Diagnosis (1) Ischemic cardiomyopathy: Status: Acute (2) Dyslipidemia associated with type 2 diabetes mellitus: Status: Acute (3) Benign essential hypertension with target blood pressure below 140/90: Status: Acute (4) Atherosclerotic heart disease of [place] coronary artery with unstable angina pectoris: Status: Acute Qualifiers: [place] vs. transplanted heart: [place] heart Qualified Code(s): I25.110 - Atherosclerotic heart disease of [place] coronary artery with unstable angina pectoris (5) Non-ST elevation UT (NSTEMI): Status: Acute (6) Morbid obesity with BMI of 45.0-49.9, adult: Status: Acute (7) Cigarette smoker motivated to quit: Status: Acute (8) Diabetes: Status: Acute Qualifiers: Diabetes mellitus type: type 2 Diabetes mellitus watermaster insulin use: with assisted use Diabetes mellitus complication status: without complication Qualified Code(s): E11.9 - Type 2 diabetes mellitus without complications; Z79.4 - terminologist (current) use of insulin Reason for Visit Reason for Visit: Reason For Visit: CP Hospital Course Discharge Summary: 49 year old female who had a nuclear stress test 07/28, finalized on 08/01 which was positive for reversible ischemia mid to apical anteroseptal, anterolateral navarrete suggestive of left anterior descending artery territory with yoana-infarctive changes, EF 22% due to global hypokinesia, cardiac cath was recommended came in with chief complaint of recurrent chest pain. She was found to have an NSTEMI and started on a heparin drip. Angiogram showed 99% ulcerated proximal LAD lesion with significant thrombus burden. The lesion was primarily stented which then caused downstream embolization and no reflow. Aggrastat was used at the time for about 24 hours.. Medications were optimized and she was started on losartan spironolactone and Lasix. Low-dose beta-dilcia was also initiated. She was recommended to obtain a LifeVest because of her ischemic cardiomyopathy, however in spite of repeated discussions this has been declined by her insurance [employer]. Reason for denial was that patient has not had medical management for at least 3 months. Documentation from [facility] reinforces the statement and has been placed in patient's chart. At the time of discharge, she currently has minimal chest pain rated about 2 out of 10 not worsening with exertion. She was seen to be ambulating the hallway. No hypoxia. Clinically feels well without any shortness of breath. He is being discharged with advised to follow-up with cardiology CARDIOVASCULAR RN within the week and then with Dr. Matthew in 3 to 4 weeks. Other significant findings this admission included presence of fatty liver disease on ultrasound. Lifestyle modification and diet modification was discussed. This should be followed up as an outpatient with her PCP to assess for any progression to fibrosis or cirrhosis. 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8 Hct 40.5 MCV 90.4 MCH 28.6 MCHC 31.6 RDW 14.6 Plt Count 96 L MPV 11.0 H Neut % (Auto) 61.5 Lymph % (Auto) 26.9 [place] % (Auto) 7.5 Eos % (Auto) 3.0 Baso % (Auto) 0.9 Neut # (Auto) 3.9 Lymph # (Auto) 1.7 [place] # (Auto) 0.5 Eos # (Auto) 0.2 Baso # (Auto) 0.1 Nucleated RBC % (a uto) 0 Nucleated RBCs # 0.0 Sodium 137 Potassium 4.0 Chloride 101 Carbon Dioxide 27 Anion Gap 13.0 BUN 13 Creatinine 0.5 GFR Calculation 130.6 H Glucose 261 H POC Glucose 227 Calculated Osmolal ity 289 Calcium 9.2 Total Bilirubin 1.1 AST 25 ALT 28 Alkaline Phosphata se 143 H Total Protein 6.8 Albumin 3.1 L Globulin 3.7 08/05/19 08/05/19 08/05/19 20:11 16:28 11:34 WBC RBC Hgb Hct MCV MCH MCHC RDW Plt Count MPV Neut % (Auto) Lymph % (Auto) [place] % (Auto) Eos % (Auto) Baso % (Auto) Neut # (Auto) Lymph # (Auto) [place] # (Auto) Eos # (Auto) Baso # (Auto) Nucleated RBC % (a uto) Nucleated RBCs # Sodium Potassium Chloride Carbon Dioxide Anion Gap BUN Creatinine GFR Calculation Glucose POC Glucose 298 205 228 Calculated Osmolal ity Calcium Total Bilirubin AST ALT Alkaline Phosphata se Total Protein Albumin Globulin Vitals: Last Vital Signs Temp 97.7 F 08/06/19 07:00 Pulse 89 08/06/19 07:00 Resp 18 08/06/19 07:00 BP 120/79 08/06/19 08:22 Pulse Ox 97 08/06/19 07:00 Discharge Plan Discharge Patient Disposition: Home, Self-Care Condition: Stable Prescriptions: New losartan 50 mg Tablet 25 mg PO DAILY 30 Days Qty: 30 RF: 0 atorvastatin 40 mg Tablet 80 mg PO DAILY 30 Days Qty: 30 RF: 0 clopidogrel 75 mg Tablet 75 mg PO DAILY 30 Days Qty: 30 RF: 0 aspirin 81 mg Tablet,Delayed Release (Dr/Ec) 81 mg PO DAILY 30 Days Qty: 30 RF: 0 spironolactone 25 mg Tablet 25 mg PO DAILY 30 Days Qty: 30 RF: 0 nitroglycerin [Nitrostat] 0.4 mg Tablet, Sublingual 0.4 mg sublingual Q5M PRN (Reason: Chest Pain) 30 Days Qty: 30 RF: 0 metoprolol succinate 25 mg Tablet Extended Release 24 Hr 25 mg PO DAILY 30 Days Qty: 30 RF: 0 Continued pregabalin [Lyrica] 150 mg capsule 150 mg PO BID 30 Days Qty: 60 RF: 3 estradiol 1 mg tablet 1 mg PO DAILY RF: 0 albuterol sulfate [Ventolin HFA] 90 mcg/actuation HFA aerosol inhaler 2 puff INHALATION Q6H PRN (Reason: Shortness Of Breath) RF: 0 Humulin R U-500 (Conc) Insulin 500 unit/mL Solution See Rx Instructions .ROUTE .COMPLEX RF: 0 omeprazole 20 mg Capsule,Delayed Release(Dr/Ec) 20 mg PO DAILY RF: 0 ergocalciferol (vitamin D2) 1,250 mcg (50,000 unit) Capsule 1,250 mcg PO DAILY RF: 0 Effexor XR 75 mg capsule,extended release 24hr 75 mg PO DAILY RF: 0 Discontinued furosemide [Lasix] 40 mg tablet 40 mg PO DAILY RF: 0 atorvastatin [Lipitor] 10 mg tablet 10 mg PO DAILY RF: 0 metoprolol tartrate 25 mg tablet 25 mg PO BID RF: 0 diltiazem HCl 240 mg Capsule,Extended Release 24 Hr 240 mg PO DAILY RF: 0 Discharge Orders: Discharge Order (Routine); Ordered 08/06/19 Ordered By: Sherley Schultz Other Ambulatory Orders: Comprehensive Metabolic Panel (Routine) Timeframe: 1 Week Facility: [facility] - Location: Lab - Main Lab Ordered By: Sherley Schultz Referrals: Ralph Rothman FNP [Primary Care Provider] - Mimi Duggan FNP [Nurse Practitioner] - 1 week Marce Matthew MD [Physician] - 1 month Discharge Diet: Cardiac, Diabetic, Low Salt, Low Cholesterol and Low Fat Discharge Activity: Resume usual activity Discharge Attestations Time Spent in Discharge Care*: greater than 30 min Quality Metrics Clinical Quality Measures During this hospital stay, did patient experience: AMI Clinical Trial Participant: No Contraindication to aspirin (AMI): Aspirin given Contraindication to statin: Statin prescribed Coding Level of Care Code Acute 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 transplanted heart: [place] heart Non-ST elevation [place] (NSTEMI) I21.4 Morbid obesity with BMI of 45.0-49.9, adult E66.01; Z68.42 Cigarette smoker motivated to quit F17.210 Diabetes E11.9; Z79.4 Diabetes mellitus type: type 2 Diabetes mellitus watermaster insulin use: with watermaster use Diabetes mellitus complication status: without complication
[2019-08-06 12:03] VITALS: BP 125/81; PULSE 87; RESP 18; TEMP 36.6; O2SAT 94
[2019-08-06 12:13] LABS: Glucose Point of Care 195 mg/dL (70-110)
== END 2019-08-06 16:46 | disposition home or self-care (01) | DRG 247 ==
LOC: ER 07:50 → CSU 08-04 07:31
PROVIDERS: Internal Medicine; Internal Medicine Cardiovascular Disease; Admitting Provider Internal Medicine; Emergency Provider Emergency Medicine; Family Provider Registered Nurse; PCP Registered Nurse; Visit Provider Student in an Organized Health Care Education/Training Program
DX: I21.4 Non-ST elevation (NSTEMI) myocardial infarction (principal); I50.1 Left ventricular failure, unspecified; Z68.42 Body mass index [BMI] 45.0-49.9, adult; I25.5 Ischemic cardiomyopathy; E11.69 Type 2 diabetes mellitus with other specified complication; E78.5 Hyperlipidemia, unspecified; I25.110 Atherosclerotic heart disease of native coronary artery with unstable angina pectoris; E66.01 Morbid (severe) obesity due to excess calories; F17.210 Nicotine dependence, cigarettes, uncomplicated; I11.0 Hypertensive heart disease with heart failure; K76.0 Fatty (change of) liver, not elsewhere classified; G47.33 Obstructive sleep apnea (adult) (pediatric); Z79.51 Long term (current) use of inhaled steroids; Z79.4 Long term (current) use of insulin
CPT/HCPCS: 12345; 36415; 36416; 71045; 76705; 80053; 80061; 82962; 83036; 84484; 85025; 85347; 85378; 93005; 93306; 93452; 94660; 96372; 96375; 99283; C1769; C1874; C1887; C1894; C9600; G0378; J1200; J1644; J1720; J1815; J1940; J2001; J2250; J3010; J3246; J3490; J7030; Q9967

== ENCOUNTER → 2019-08-13 10:29 | Outpatient (BNVA) | payer BC, SELFPAY | PROVIDERS: Family Provider Registered Nurse; PCP Registered Nurse; Visit Provider Nurse Practitioner Family | DX: I25.10 Atherosclerotic heart disease of native coronary artery without angina pectoris (principal); I42.9 Cardiomyopathy, unspecified; I25.5 Ischemic cardiomyopathy; I25.110 Atherosclerotic heart disease of native coronary artery with unstable angina pectoris | CPT/HCPCS: 80048 ==

== ENCOUNTER 2019-11-15 09:23 | Outpatient (CLI) | payer BC, SELFPAY ==
--- NOTE | 2019-11-15 09:30 | USCV_ITS ---
Aspen Lama Age: 49 Gender: F : 1970 Exam Date: 11/15/2019 10:34 Ordering Phys: Mimi Duggan Technologist: Maurizio Awad [place] [facility] [place] LV FUNCT HX OF OR BP: 126 / 73 HR: 71 Rhythm: Sinus Technical Quality: Adequate MEASUREMENTS (Male / Female) Normal Values 2D ECHO LV Diastolic Diameter PLAX 4.8 cm 4.2 - 5.9 / 3.9 - 5.3 cm LV Systolic Diameter PLAX 2.9 cm IVS Diastolic Thickness 1.3 cm 0.6 - 1.0 / 0.6 - 0.9 cm IVS Systolic Thickness 1.8 cm LVPW Diastolic Thickness 1.1 cm 0.6 - 1.0 / 0.6 - 0.9 cm LVPW Systolic Thickness 1.7 cm LVOT Diameter 2.1 cm LV Ejection Fraction 2D Teich 68.6 % LV Ejection Fraction MOD 2C 71.4 % LV Ejection Fraction 2C AL 72.4 % LA Diameter 4.8 cm LA Width 3.3 cm LA Height 4.4 cm RA Width 3.8 cm RA Height 4.4 cm Aorta at Sinotubular Diameter 2.7 cm M-MODE LV Diastolic Diameter MM 5.9 cm 4.2 - 5.9 / 3.9 - 5.3 cm LV Systolic Diameter MM 3.9 cm LV Ejection Fraction MM Teich 62.8 % IVS Diastolic Thickness MM 1.3 cm 0.6 - 1.0 / 0.6 - 0.9 cm IVS Systolic Thickness MM 2.3 cm LVPW Diastolic Thickness MM 1.3 cm 0.6 - 1.0 / 0.6 - 0.9 cm LVPW Systolic Thickness MM 1.7 cm RV Diastolic Diameter MM 1.1 cm Aortic Annulus Diameter 3.6 cm LA Ao Ratio MM 1.4 MV E Point Septal Separation 1.9 cm DOPPLER TR Peak Velocity 177.0 cm/s TR Peak Gradient 12.5 mmHg TV Peak E Velocity 100.0 cm/s Right Atrial Pressure 3.0 mmHg Pulmonary Artery Systolic Pressu 15.5 mmHg FINDINGS Left Ventricle Normal left ventricular cavity size. Normal left ventricular systolic function. No regional wall motion abnormalities. Left ventricular ejection fraction is estimated at 62 %. Right Ventricle The right ventricle is normal in size and function. Right Atrium The right atrium is normal in size. Left Atrium The left atrium is normal in size. Mitral Valve Structurally normal mitral valve without significant stenosis or prolapse. There is no mitral regurgitation. Aortic Valve Structurally normal aortic valve without significant sclerosis or stenosis. There is no aortic regurgitation. Tricuspid Valve Structurally normal tricuspid valve without significant stenosis or regurgitation. Pulmonary artery systolic pressure is normal. Pulmonic Valve Structurally normal pulmonic valve without significant stenosis. There is no pulmonic regurgitation. Pericardium Normal pericardium without effusion. Aorta Normal ascending aorta dimension. CONCLUSIONS 1-Normal left ventricular cavity size. Normal left ventricular systolic function. No regional wall motion abnormalities. Left ventricular ejection fraction is estimated at 62 %. 2-There is no pericardial effusion. 3-No significant valve abnormalities. 4-Pulmonary artery systolic pressure is within normal limits. 5-When compared to the prior echocardiogram dated 08/03/2019 left ventricular ejection fraction has improved from severely depressed 35% to normal 60% now. Carolyn Luna MD (Electronically Signed) Final Date: 17 November 2019 18:37 S
== END 2019-11-15 09:24 | disposition home or self-care (01) ==
LOC: US 09:24
PROVIDERS: Family Provider Registered Nurse; PCP Registered Nurse; Visit Provider Nurse Practitioner Family
DX: I25.2 Old myocardial infarction (principal)
CPT/HCPCS: 93306

== ENCOUNTER 2020-02-28 09:46 | Inpatient (IN) | payer BC, SELFPAY ==
[2020-02-28] VITALS (11 sets, daily range): BP systolic 95–141; BP diastolic 56–99; PULSE 75–130; RESP 16–22; TEMP 36.8; O2SAT 94–97
--- NOTE | 2020-02-28 09:59 | ECG_ITS ---
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 Measurements Intervals [place] Rate: 130 P: 55 GA: 134 QRS: -7 QRSD: 88 T: 64 QT: 282 QTc: 415 Interpretive Statements SINUS TACHYCARDIA LOW QRS VOLTAGE IN PRECORDIAL LEADS [QRS DEFLECTION < 1.0 mV IN CHEST LEADS] ANTEROSEPTAL MYOCARDIAL INFARCTION , OF INDETERMINATE AGE [40+ ms Q WAVE IN V1-V4] Compared to ECG 08/04/2019 09:47:45 No significant changes Electronically Signed On 02-28-2020 17:34:29 CDT by Jarad Ford M.D. [email or web address]
--- NOTE | 2020-02-28 09:59 | XR_ITS ---
WS: [id number] XR chest 1V portable [id number] REASON FOR EXAM: syncope FINDINGS: Comparison examination portable chest 08/03/2019 The heart and mediastinum are within normal limits. No active pulmonary parenchymal or pleural disease is noted. Normal bony thorax. XR/XR chest 1V portable [id number] IMPRESSION: No acute abnormality.
[2020-02-28] MEDS: ondansetron 2 mg/ML SDV 2 mL 4 MG IVP (10:04)
[2020-02-28 10:08] LABS: Basophils # 0.1 10^3/uL (0.0-0.1); Basophils % 0.6 %; Eosinophils # 0.2 10^3/uL (0.0-0.8); Eosinophils % 2.5 %; Hematocrit 49.6 % (37.0-47.0); Hemoglobin 15.8 g/dL (11.5-15.3); Lymphocytes # 1.9 10^3/uL (0.8-4.8); Lymphocytes % 22.8 %; Mean Corpuscular HGB Conc 31.9 g/dL (30.0-36.0); Mean Corpuscular Hemoglobin 28.8 pg (28.0-34.0); Mean Corpuscular Volume 90.3 fL (81-99); Monocytes # 0.4 10^3/uL (0.2-0.9); Monocytes % 4.2 %; Neutrophils # 5.92 10^3/uL (1.8-7.7); Neutrophils % 69.5 %; Nucleated Red Blood Cells % 0 %; Platelet Count 127 10^3/cmm (130-400); Red Blood Count 5.49 10^6/uL (4.1-5.3); Red Cell Distribution Width 14.3 % (12.1-15.1); White Blood Count 8.5 10^3/uL (4.0-10.0)
--- NOTE | 2020-02-28 10:12 | CT_ITS ---
WS: [id number] CT HEAD TECHNIQUE: Noncontrast CT of the head obtained from the skullbase to the vertex. CLINICAL INFORMATION: BANERJEE - on ASA COMPARISON: None. DLP: 835.[address] scans at [facility] use at least one of these dose optimization techniques: automat ed exposure control; mA and/or kV adjustment per patient size (includes targeted exams where dose is matched to clinical indication); or iterative reconstruction. FINDINGS: No evidence of intracranial hemorrhage or mass effect. Ventricular system and basal cisterns are bang nt. Minimal small vessel changes with mild parenchymal volume loss. No extra-axial fluid collections. No evidence of mass or mass effect. Normal valdes-white differentiation. Paranasal sinuses and mastoid air cells are well aerated. .Normal visualized soft tissues. CT/CT head wo con* [id number] IMPRESSION: 1. No evidence of intracranial hemorrhage or mass effect. 2. Paranasal sinuses and mastoid air cells well aerated. 3. No acute intracranial findings. Notified TK Mandujano at 02/28/2020 11:29 AM.
[2020-02-28 10:22] LABS: Troponin(5th) Baseline 13 ng/L (0-10)
[2020-02-28 10:23] LABS: INR 1.04 (0.8-1.2)
[2020-02-28 10:27] LABS: D Dimer 0.44 ug/mIFEU (0-0.59)
--- NOTE | 2020-02-28 10:27 | ED_ITS ---
HPI - Weakness General: Chief complaint: Weakness Stated complaint: WEAK, ELEVATED HR Time Seen by Provider: 02/28/20 09:50 History of Present Illness: HPI Narrative: 49-year-old female patient presents to the emergency department with onset of weakness. She was referred by her primary care to come to the ED due to cardiac history. She reports headache x2 weeks, currently on aspirin. She reports no history of headaches. Denies fever chills, recently tested for COVID-19's states negative results. She reports shortness of breath, onset this morning. She denies extremity swelling. She denies cough -she reports went to the nurses office this morning and heart rate was noted to be elevated. History of silent GA in July 2019, reports has not received stress test since. States several month history of intermittent chest pain. She is currently chest pain-free and has not exhibited chest pain symptoms for at least 4 weeks. Complaint: generalized weakness Onset (ago): day(s) (2) Duration: progressively worsening Location: generalized Severity: moderate Relieving factors: rest Exacerbating factors: exertion Associated symptoms: Reports headache(s) and nausea; Denies chest pain, chills, diaphoresis, dysuria, easy bruising, fever(s) or vomiting Review of Systems General: Reports: 10 or more systems reviewed and unremarkable except in HPI and below Const: Reports: fatigue and malaise; Denies: fever(s), chills or diaphoresis Eyes: Denies: blurry vision or eye redness ENMT: Denies: throat pain, dental pain or disequilibrium Card: Denies: chest pain, palpitations or irregular heart rhythm Resp: Reports: dyspnea; Denies: productive cough, non-productive cough, wheezing or chest congestion GI: Reports: nausea; Denies: abdominal pain, vomiting or dysphagia : Denies: difficulty voiding or dysuria Musc: Denies: back pain Skin/Breast: Denies: rash or pruritus Neuro: Reports: headache(s), numbness in extremities (Right, reports wears wrist brace to help with numbness and tingling.) and weakness in extremities Andrey/Lymph: Denies: easy bruising PFS ED PFSH: Medical History Acid reflux Atherosclerotic heart disease of [place] coronary artery with unstable angina pectoris Benign essential hypertension with target blood pressure below 140/90 Diabetes Dyslipidemia associated with type 2 diabetes mellitus Hypercholesterolemia Ischemic cardiomyopathy Morbid obesity with BMI of 45.0-49.9, adult Non-ST elevation GA (NSTEMI) Nonalcoholic fatty liver disease Uses LifeVest defibrillator Surgical History H/O heart artery stent H/O: hysterectomy History of History of cholecystectomy Family History Other Chest pain Social History Smoking and tobacco status: current every day smoker Alcohol intake: never Adopted: No Caregiver/support person: No Lives independently: No Household members: spouse Marital status: Current occupational status: employed History of recent travel: No Sexually active: Yes Current gender identity: Female Physical Exam Const: COMMON NORMALS: no acute distress, patient oriented x3, healthy appearing and alert GENERAL APPEARANCE: cooperative, comfortable and well hydrated HENMT: COMMON NORMALS: normocephalic, Normal external nose present and moist oral mucous membranes HEAD & SCALP: normocephalic NOSE: Normal external nose present Eye: COMMON NORMALS: Equal, round and reactive pupils present and EOMs intact bilaterally GENERAL EYE: appearance normal, both eyes and all related structures PUPIL: Yes Equal, round and reactive pupils present Neck/C-Spine: COMMON NORMALS: full ROM and no lymphadenopathy GENERAL: Yes normal visual inspection and Yes trachea midline CERVICAL SPINE: Yes cervical ROM normal Lymph: LYMPHATIC: no lymphadenopathy noted Chest: COMMONS NORMALS: normal inspection of the chest and normal palpation of entire chest wall Resp: COMMON NORMALS: normal respiratory effort and clear to auscultation bilaterally AUSCULTATION: clear to auscultation bilaterally Cardio: COMMON NORMALS: regular rhythm, S1 normal heart sound present, S2 normal heart sound present and Peripheral pulses 2+ throughout JUGULAR VENOUS DISTENTION: no JVD RATE: tachycardic RHYTHM: regular rhythm HEART SOUNDS: S1 normal heart sound present and S2 normal heart sound present PERIPHERAL PULSES: Peripheral pulses 2+ throughout OTHER: Negative peripheral edema GI: COMMON NORMALS: Soft to palpation and non-tender INSPECTION: Yes normal to inspection PALPATION: Yes Soft to palpation : COMMON NORMALS: Yes no CVA tenderness BLADDER/KIDNEY EXAM: Yes no CVA tenderness Back/Pelvis: COMMON NORMALS: no CVA tenderness and thoracic and lumbar spine normal to inspection Extremity: COMMON NORMALS: normal to inspection and capillary refill normal Neuro: COMMON NORMALS: patient oriented x3 and no focal motor deficits SENSORIUM/ORIENTATION: Yes alert Psych: COMMON NORMALS: mental status grossly normal, Normal thought process present and cooperative ACTIVITY/MOTOR BEHAVIOR: Yes appropriate eye contact THOUGHT PROCESS: Normal thought process present Skin: COMMON NORMALS: no rashes or lesions noted and turgor normal GENERAL SKIN EXAM: no rashes or lesions noted and turgor normal Course ED course: 49-year-old female patient presents to the emergency department with onset of weakness. She reports weakness and nausea similar to symptoms of her previous GA experienced July 2019. She reports has appointment with Dr. Matthew in the morning. Initial troponin slightly elevated at 13 with negative delta troponin II hour post. Nausea has resolved, she was not administered antiemetic. She was orthostatic positive with vital signs, patient reported feeling better with IV fluid bolus. She reports concern as she has experienced similar symptoms in the past with weakness with her first GA. Case was disc ussed with Dr. Conti and Dr. Matthew. Transfer of care to Dr. Conti for observation services. She has not exhibited chest pain in the ER, she has remained sinus rhythm upon exam with tachycardia resolved post infusion of IV fluids. Consultations: Consultation #1: Dr Matthew -Case discussed with Dr. Matthew, EKG results, laboratory findings and imaging findings discussed with him. He advised due to patient's history, would recommend patient to be placed in observation with stress test tomorrow. He advised hospitalist to follow. Vital Signs: Vital signs: Vital Signs Temperature 98.2 F 02/28/20 09:49 Pulse Rate 81 02/28/20 14:12 Respiratory Rate 21 H 02/28/20 12:33 Blood Pressure 104/70 02/28/20 14:12 Pulse Oximetry 94 02/28/20 12:33 MDM - Weakness Lab Data: Labs: Lab Results 02/28/20 02/28/20 02/28/20 Range/Units 09:57 09:57 09:57 WBC 8.5 (4.0-10.0) 10^3/ uL RBC 5.49 H (4.1-5.3) 10^6/u L Hgb 15.8 H (11.5-15.3) g/dL Hct 49.6 H (37.0-47.0) % MCV 90.3 (81-99) fL MCH 28.8 (28.0-34.0) pg MCHC 31.9 (30.0-36.0) g/dL RDW 14.3 (12.1-15.1) % Plt Count 127 L (130-400) 10^3/c mm MPV 11.0 H (7.4-10.4) fL Neut % (Auto) 69.5 % Lymph % (Auto) 22.8 % [place] % (Auto) 4.2 % Eos % (Auto) 2.5 % Baso % (Auto) 0.6 % Neut # (Auto) 5.92 (1.8-7.7) 10^3/u L Lymph # (Auto) 1.9 (0.8-4.8) 10^3/u L [place] # (Auto) 0.4 (0.2-0.9) 10^3/u L Eos # (Auto) 0.2 (0.0-0.8) 10^3/u L Baso # (Auto) 0.1 (0.0-0.1) 10^3/u L Nucleated RBC % (a uto) 0 % Nucleated RBCs # 0.0 /100WBC PT 14.00 (12.1-14.9) SECO NDS INR 1.04 (0.8-1.2) APTT 28.0 (23.9-36.7) SECO NDS D-Dimer 0.44 (0-0.59) ug/mIFE U Sodium 139 (136-145) mmol/L Potassium 4.1 (3.5-5.1) mmol/L Chloride 101 (98-107) mmol/L Carbon Dioxide 28 (22-29) mmol/L Anion Gap 14.1 (5-19) BUN 13 (6-20) mg/dL Creatinine 0.8 (0.5-0.9) mg/dL GFR Calculation 75.9 L (90-130) mL/min Glucose 201 H (65-115) mg/dL Calculated Osmolal ity 294 (285-295) mOsm/k g Calcium 9.7 (8.5-10.5) mg/dL Total Bilirubin 0.9 (0.15-1.2) mg/dL AST 33 H (0-32) U/L ALT 45 H (0-33) U/L Alkaline Phosphata se 230 H (35-105) IU/L Troponin T Baselin e (0-10) ng/L Troponin T 120 Min [place] (0-10) ng/L Delta Troponin T (0-10) ABS# NT-Pro-B Natriuret Pep 92 (0-125) pg/mL Total Protein 7.7 (6.6-8.7) g/dL Albumin 4.4 (3.5-5.2) g/dL Globulin 3.3 (1.3-4.6) g/dL 02/28/20 02/28/20 Range/Units 09:57 12:00 WBC (4.0-10.0) 10^3/ uL RBC (4.1-5.3) 10^6/u L Hgb (11.5-15.3) g/dL Hct (37.0-47.0) % MCV (81-99) fL MCH (28.0-34.0) pg MCHC (30.0-36.0) g/dL RDW (12.1-15.1) % Plt Count (130-400) 10^3/c mm MPV (7.4-10.4) fL Neut % (Auto) % Lymph % (Auto) % [place] % (Auto) % Eos % (Auto) % Baso % (Auto) % Neut # (Auto) (1.8-7.7) 10^3/u L Lymph # (Auto) (0.8-4.8) 10^3/u L [place] # (Auto) (0.2-0.9) 10^3/u L Eos # (Auto) (0.0-0.8) 10^3/u L Baso # (Auto) (0.0-0.1) 10^3/u L Nucleated RBC % (a uto) % Nucleated RBCs # /100WBC PT (12.1-14.9) SECO NDS INR (0.8-1.2) APTT (23.9-36.7) SECO NDS D-Dimer (0-0.59) ug/mIFE U Sodium (136-145) mmol/L Potassium (3.5-5.1) mmol/L Chloride (98-107) mmol/L Carbon Dioxide (22-29) mmol/L Anion Gap (5-19) BUN (6-20) mg/dL Creatinine (0.5-0.9) mg/dL GFR Calculation (90-130) mL/min Glucose (65-115) mg/dL Calculated Osmolal ity (285-295) mOsm/k g Calcium (8.5-10.5) mg/dL Total Bilirubin (0.15-1.2) mg/dL AST (0-32) U/L ALT (0-33) U/L Alkaline Phosphata se (35-105) IU/L Troponin T Baselin e 13 H (0-10) ng/L Troponin T 120 Min [place] 12.48 H (0-10) ng/L Delta Troponin T -0.52 L (0-10) ABS# NT-Pro-B Natriuret Pep (0-125) pg/mL Total Protein (6.6-8.7) g/dL Albumin (3.5-5.2) g/dL Globulin (1.3-4.6) g/dL Imaging Data^: CXR: Radiologist's impression: [address] [address] XRay Report Signed Patient: Aspen Lama #: [id number] : 1970Acct#:[id number] Age/Sex: 49 / FADM Date: 02/28/20 Loc: ERRoom/Bed: Attending Dr: Ordering Provider/Ordering MD: Katerin Mckeon Date of Service: 02/28/20 Procedure(s): XR chest 1V portable [id number] Accession Number(s): [id number] Report Number: [id number] WS: [id number] XR chest 1V portable [id number] REASON FOR EXAM: syncope FINDINGS: Comparison examination portable chest 08/03/2019 The heart and mediastinum are within normal limits. No active pulmonary parenchymal or pleural disease is noted. Normal bony thorax. XR/XR chest 1V portable [id number] IMPRESSION: No acute abnormality. Dictated By:Jozef Garcia Jr, MD Signed By:Jozef Garcia Jr MDSigned Date/Time:02/28/20 1019 DD/ 1017 CT Head: Radiologist's impression: [facility] [address] [place] [address] CT Scan Report Signed Patient: Aspen Lama #: [id number] : 1970Acct#:[id number] Age/Sex: 49 / FADM Date: 02/28/20 Loc: ERRoom/Bed: Attending Dr: Ordering Provider/Ordering MD: Katerin Mckeon Date of Service: 02/28/20 Procedure(s): CT head wo con* [id number] Accession Number(s): [id number] Report Number: [id number] WS: [id number] CT HEAD TECHNIQUE: Noncontrast CT of the head obtained from the skullbase to the vertex. CLINICAL INFORMATION: BANERJEE - on ASA COMPARISON: None. DLP: 835.[address] scans at [facility] use at least one of these dose optimization techniques: automated exposure control; mA and/or kV adjustment per patient size (includes targeted exams where dose is matched to clinical indication); or iterative reconstruction. FINDINGS: No evidence of intracranial hemorrhage or mass effect. Ventricular system and basal cisterns are patent. Minimal small vessel changes with mild parenchymal volume loss. No extra-axial fluid collections. No evidence of mass or mass effect. Normal valdes-white differentiation. Paranasal sinuses and mastoid air cells are well aerated. .Normal visualized soft tissues. CT/CT head wo con* [id number] IMPRESSION: 1. No evidence of intracranial hemorrhage or mass effect. 2. Paranasal sinuses and mastoid air cells well aerated. 3. No acute intracranial findings. Notified TK Mandujano at 02/28/2020 11:29 AM. Dictated By:Buzz Kumar MD Signed By:Buzz Kumar MDSigned Date/Time:02/28/20 1129 DD/ 1115 EKG Data^: EKG 1: EKG interpretation date: 02/28/20 EKG interpretation time: 09:52 Prior EKG tracings: available for review Interpretation: No acute changes from EKG completed August 04, 2019 Computer generated interpretation: Sinus rhythm, possible right ventricular conduction delay, septal GA of indeterminate age EKG 2: EKG interpretation date: 02/28/20 EKG interpretation time: 12:10 Prior EKG tracings: available for review Interpretation: No acute change from EKG completed at 9:52 am Other EKG comments: Sinus rhythm, possible right ventricular conduction delay, septal myocardial infarction of indeterminate age Discharge Plan Discharge Prescriptions: No Action estradiol 1 mg tablet 1 mg PO DAILY RF: 0 albuterol sulfate [Ventolin HFA] 90 mcg/actuation HFA aerosol inhaler 2 puff INHALATION Q6H PRN (Reason: Shortness Of Breath) RF: 0 pregabalin [Lyrica] 150 mg capsule 150 mg PO BID 30 Days Qty: 60 RF: 3 atorvastatin 80 mg tablet See Rx Instructions .ROUTE .COMPLEX Qty: 90 RF: 0 Humulin R U-500 (Conc) Insulin 500 unit/mL Solution See Rx Instructions .ROUTE .COMPLEX RF: 0 ergocalciferol (vitamin D2) 1,250 mcg (50,000 unit) capsule 1,250 mcg PO .COMPLEX RF: 0 Stool Softener 100 mg Capsule 100 mg PO EVERY OTHER DAY RF: 0 aspirin 81 mg Tablet,Chewable 81 mg PO DAILY RF: 0 venlafaxine 75 mg capsule,extended release 24hr 75 mg PO DAILY RF: 0 clopidogrel 75 mg tablet 75 mg PO DAILY RF: 0 spironolactone 25 mg tablet 25 mg PO DAILY RF: 0 pantoprazole 20 mg tablet,delayed release (DR/EC) 20 mg PO DAILY RF: 0 metoprolol succinate 25 mg tablet extended release 24 hr 25 mg PO DAILY RF: 0 Entresto 49-51 mg tablet See Rx Instructions .ROUTE .COMPLEX RF: 0 Coding Level of Care Code ED Staff Pharmacist [facility] Fwd Exam Comprehensive
[2020-02-28 10:31] LABS: Alanine Aminotransferase 45 U/L (0-33); Albumin Level 4.4 g/dL (3.5-5.2); Alkaline Phosphatase 230 IU/L (35-105); Anion Gap 14.1 (5-19); Aspartate Amino Transferase 33 U/L (0-32); Blood Urea Nitrogen 13 mg/dL (6-20); Calcium 9.7 mg/dL (8.5-10.5); Carbon Dioxide 28 mmol/L (22-29); Chloride 101 mmol/L (98-107); Globulin 3.3 g/dL (1.3-4.6); Glomerular Filtration Rate 75.9 mL/min (90-130); Glucose 201 mg/dL (65-115); NT Pro B Type Natriuretic Pept 92 pg/mL (0-125); Osmolality Calculated 294 mOsm/kg (285-295); Potassium 4.1 mmol/L (3.5-5.1); Sodium 139 mmol/L (136-145); Total Bilirubin 0.9 mg/dL (0.15-1.2); Total Protein 7.7 g/dL (6.6-8.7)
[2020-02-28] MEDS: sodium chloride 0.9% 500 ML 999 ML IV ×2 (11:39→14:21)
--- NOTE | 2020-02-28 11:59 | ECG_ITS ---
[facility] Test Date: 2020-02-28 Pat Name: Aspen Lama Department: Room: Gender: Female Manager Fire: : 1970 Requested By: Katerin Burnham Order Number: [id number] Atul MD: Jarad Ford M.D. Measurements Intervals [place] Rate: 90 P: 56 WV: 141 QRS: -1 QRSD: 120 T: 63 QT: 338 QTc: 414 Interpretive Statements SINUS RHYTHM POSSIBLE RIGHT VENTRICULAR CONDUCTION DELAY [RSR (QR) IN V1/V2] SEPTAL MYOCARDIAL INFARCTION , OF INDETERMINATE AGE [40+ ms Q WAVE IN V1/V2] Compared to ECG 02/28/2020 09:50:33 Sinus tachycardia no longer present Myocardial infarct finding still present Electronically Signed On 02-28-2020 17:47:25 CDT by Jarad Ford M.D. [id number]
[2020-02-28 12:44] LABS: Troponin 5 2HR 12.48 ng/L (0-10)
[2020-02-28 13:29] LABS: Troponin 5 2HR Delta -0.52 ABS# (0-10)
--- NOTE | 2020-02-28 15:59 | ECG_ITS ---
[facility] Test Date: 2020-02-28 Pat Name: Aspen Lama Department: Room: 101 Gender: Female Purchaser: : 1970 Requested By: Katerin Burnham Order Number: [id number] Atul MD: Jarad Ford M.D. Measurements Intervals [place] Rate: 89 P: 39 CA: 139 QRS: -10 QRSD: 112 T: 59 QT: 361 QTc: 442 Interpretive Statements SINUS RHYTHM LOW QRS VOLTAGE IN PRECORDIAL LEADS [QRS DEFLECTION < 1.0 mV IN CHEST LEADS] MODERATE VOLTAGE CRITERIA FOR LVH, CONSIDER NORMAL VARIANT [MEETS CRITERIA IN ONE OF: R(aVL), S(V1), R(V5), R(V5/V6)+S(V1)] POSSIBLE ANTEROSEPTAL MYOCARDIAL INFARCTION [30 ms Q WAVE IN V1-V4], OF INDETERMINATE AGE Compared to ECG 02/28/2020 12:08:57 Low QRS voltage now present Myocardial infarct finding still present Electronically Signed On 02-28-2020 17:48:36 CDT by Jarad Ford M.D. [id number]
--- NOTE | 2020-02-28 16:10 | P.HP_ITS ---
Providers/Chief Complaint Admitting Physician: Walter Hartley Primary Care Provider: HAI Merlos Chief Complaint: WEAK, ELEVATED HR History of Present Illness Aspen Lama is a 49 year old pleasant lady with history of coronary disease, LAD stenting in July 2019 due to high-grade lesion, current smoker, has been having some nonspecific symptoms, weakness, occasional nausea. Was tested at [facility] by rapid antigen test for coronavirus 3 days ago which was n egative. 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 In ER noted heart rates 130s, sinus rhythm. She does report having on and off chest discomfort, substernal, triggered by exertion, although does say especially when she is working with her arms like sweeping, but sometimes with just walking as well. She denies having significant cough. She does say that she thinks she may have some history of exercise-induced and weather induced asthma, But says never had a formal PFT. She denies having chest pain today. She says she has been taking her metoprolol as prescribed 25 mg daily, denies any recent medication dose changes. He denies missing any doses. Review of Systems Const: Reports: fatigue; Denies: fever(s), chills, body aches or malaise Eyes: Denies: change in vision or eye redness ENMT: Denies: throat pain, oral sores or ear or mastoid pain Card: Reports: chest pain and dyspnea on exertion; Denies: edema, pre-syncope or orthopnea Resp: Denies: dyspnea, productive cough, change in phlegm color or hemoptysis GI: Reports: nausea; Denies: abdominal pain, vomiting, diarrhea, constipation, hematochezia or melena : Denies: flank pain, urinary frequency or hematuria Musc: Denies: back pain, joint swelling or joint redness Skin/Breast: Denies: rash, sores or new lesions Neuro: Denies: headache(s), numbness in extremities, weakness in extremities, dizziness, confusion or seizure-like activity Endo: Denies: polyuria or polydipsia Andrey/Lymph: Denies: easy bleeding or purpura All/Imm: Denies: urticaria, throat swelling or tongue swelling Medications/Allergies Home Medications Medication Instructions Recorded Confirmed Last Taken Type albuterol sulfate 90 mcg/actuation 2 puff INHALATION Q6H PRN 07/08/19 02/28/20 Unknown History aerosol inhaler estradiol 1 mg tablet 1 mg PO DAILY 07/08/19 02/28/20 02/28/20 History Humulin R U-500 (Conc) Insulin See Rx Instructions .ROUTE .COMPLEX 08/03/19 02/28/20 02/28/20 History ergocalciferol (vitamin D2) 1,250 1,250 mcg PO .COMPLEX 10/21/19 02/28/20 02/23/20 History mcg (50,000 unit) capsule pregabalin 150 mg capsule 150 mg PO BID 30 Days #60 cap 11/03/19 02/28/20 Unknown Rx atorvastatin 80 mg tablet See Rx Instructions .ROUTE 12/07/19 02/28/20 02/28/20 Rx .COMPLEX #90 tab aspirin 81 mg PO DAILY 02/28/20 02/28/20 02/28/20 History clopidogrel 75 mg PO DAILY 02/28/20 02/28/20 02/28/20 History docusate sodium [Stool Softener] 100 mg PO EVERY OTHER DAY 02/28/20 02/28/20 02/28/20 History metoprolol succinate 25 mg PO DAILY 02/28/20 02/28/20 02/28/20 History pantoprazole 20 mg PO DAILY 02/28/20 02/28/20 02/28/20 History sacubitril-valsartan [Entresto] See Rx Instructions .ROUTE .COMPLEX 02/28/20 02/28/20 02/28/20 History spironolactone 25 mg PO DAILY 02/28/20 02/28/20 02/28/20 History venlafaxine 75 mg PO DAILY 02/28/20 02/28/20 02/28/20 History Allergies Allergy/AdvReac Type Severity Reaction Status Date / Time cephalexin [From Keflex] Allergy ADR-Itching Verified 02/28/20 09:57 Iodinated Contrast Media Allergy ADR-Cough Verified 02/28/20 09:57 Penicillins Allergy ADR-Itching Verified 02/28/20 09:57 PFSH Acute PFSH: Medical History Acid reflux Atherosclerotic heart disease of [place] coronary artery with unstable angina pectoris Benign essential hypertension with target blood pressure below 140/90 Diabetes Dyslipidemia associated with type 2 diabetes mellitus Hypercholesterolemia Ischemic cardiomyopathy Morbid obesity with BMI of 45.0-49.9, adult Non-ST elevation [place] (NSTEMI) Nonalcoholic fatty liver disease Uses LifeVest defibrillator Surgical History H/O heart artery stent H/O: hysterectomy History of History of cholecystectomy Family History Father CAD (coronary artery disease) Diabetes Other Chest pain Social History Smoking and tobacco status: current every day smoker Alcohol intake: never Adopted: No Caregiver/support person: No Lives independently: No Household members: spouse Marital status: Current occupational status: employed History of recent travel: No Sexually active: Yes Current gender identity: Female Vitals/I&O/Wt Last Vital Signs Temp 98.2 F 02/28/20 09:49 Pulse 95 02/28/20 15:17 Resp 21 H 02/28/20 15:17 BP 113/69 02/28/20 15:17 Pulse Ox 97 02/28/20 15:17 02/28/20 02/28/20 02/28/20 06:59 14:59 22:59 Intake Total 500 / 500 500 / 1000 Balance 500 / 500 500 / 1000 Physical Exam Const: COMMON NORMALS: no acute distress and patient oriented x3 NUTRITIONAL APPEARANCE: obese HENMT: COMMON NORMALS: oropharynx normal Neck/C-Spine: COMMON NORMALS: no JVD Resp: COMMON NORMALS: normal respiratory effort and clear to auscultation bilaterally AUSCULTATION: clear to auscultation bilaterally Cardio: COMMON NORMALS: no JVD, regular rhythm, S1 normal heart sound present, S2 normal heart sound present and No murmurs present (Cardio) RHYTHM: regular rhythm HEART SOUNDS: S1 normal heart sound present and S2 normal heart sound present GI: COMMON NORMALS: Normal to inspection, nondistended, normoactive bowel sounds present, Soft to palpation and non-tender PALPATION: Yes Soft to palpa tion Extremity: COMMON NORMALS: no joint enlargement and no pedal edema Neuro: COMMON NORMALS: patient oriented x3 and moves all extremities Skin: COMMON NORMALS: no rashes or lesions noted GENERAL SKIN EXAM: no rashes or lesions noted Data : 02/28/20 09:57 02/28/20 09:57 A&P Assessment and plan (1) Tachycardia: Sinus tachycardia 130s on presentation. Appears to have resolved so far, HR 80-90. Discussed with her. 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 She denies having issues of bradycardia or tachycardia previously. Says has been taking her metoprolol 25 mg daily. Denies missing any doses or dose changes recently. Has been having on and off chest pain over the last 4 months. None today. This appears to be triggered by exertion, but particularly also working with her arms like sweeping. Given prior cardiac history will observe and rule out OK. Cardiac monitoring. Limited TTE. Check TSH. Continue home medications unchanged for now. Due to concern of tachycardia, somewhat soft blood pressure on presentation, fatigue, nausea episodes will be assessed by COVID-19 PCR. Status: Acute (2) Chest pain: With known coronary disease. Complete troponin and EKG series. Assess limited TTE. Monitor on telemetry. As per discussion with her would benefit from stress testing subsequently if no signs of acute OK. So far troponin has not been rising suggest this. Continue cardiac medications during, statin, beta-dilcia. Status: Acute Qualifiers: Chest pain type: unspecified Qualified Code(s): R07.9 - Chest pain, unspecified (3) Fatigue: As above, monitor heart rates. Check TSH. Assess COVID-19 PCR. Status: Acute (4) Transaminitis: Known history of fatty infiltration of the liver. This appears to be chronic. Monitor for now. No abdominal pain. History of cholecystectomy. Status: Acute Additional A&P Information Hx ischemic cardiomyopathy: With improvement in ejection fraction on last imaging up to 60%. LifeVest was discontinued. Smoking addiction: Discussed smoking cessation for 4 minutes. She says has been trying to quit. Failed Chantix twice. She is agreeable to nicotine patch and gum for cravings in the hospital. We have discussed various risks and organ systems that smoking can affect. She will continue trying to quit. Diabetes: Takes regular insulin at home. Will transition to NPH here at lower starting dose. Consistent carbohydrate diet. Sliding scale insulin. HTN HLD NAFLD Other chronic comorbidities Attestations Medical Necessity Statement*: Place in observation. 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
[2020-02-28 16:23] LABS: Glucose Point of Care 82 mg/dL (70-110)
[2020-02-28 16:30] LABS: Troponin 5 6HR 13.92 ng/L (0-10); Troponin 5 6HR Delta 0.92 ng/L (0-12)
--- NOTE | 2020-02-28 16:41 | PC.NURSE ---
Patient arrived to CSU from ER at 1545. Patient oriented to room and call light. Patient placed on contact and droplet precautions for covid r/o. Nurse to continue to monitor.
[2020-02-28] MEDS: pneumococcal (23 valent) SDV 0.5 mL IM (17:30)
[2020-02-28] MEDS: pregabalin 150 mg Capsule PO (17:30)
[2020-02-28 17:43] LABS: Thyroid Stimulating Hormone 1.28 uIU/mL (0.27-4.20)
[2020-02-28] MEDS: heparin 5,000 unit/mL INJ 1 mL 5000 UNIT SUBCUT (18:17)
[2020-02-28] MEDS: nicotine 14 mg Patch 1 PATCH TRANSDERMA (18:17)
[2020-02-28 20:08] LABS: Glucose Point of Care 168 mg/dL (70-110)
--- NOTE | 2020-02-28 21:34 | PC.NURSE ---
Patient resting in bed with eyes closed and lights off. Patient is cooperative with cares and staff. Continue care.
[2020-02-29] VITALS (9 sets, daily range): BP systolic 109–145; BP diastolic 53–79; PULSE 75–88; RESP 14–22; TEMP 36.6–36.9; O2SAT 92–97
[2020-02-29] MEDS: heparin 5,000 unit/mL INJ 1 mL 5000 UNIT SUBCUT ×3 (01:12→17:15)
--- NOTE | 2020-02-29 03:44 | PC.NURSE ---
Patient continues to rest soundly in room with eyes closed. Call light is within reach. Continue care.
[2020-02-29 05:03] LABS: Basophils % 0.5 %; Eosinophils # 0.2 10^3/uL (0.0-0.8); Eosinophils % 3.6 %; Hematocrit 44.9 % (37.0-47.0); Hemoglobin 14.1 g/dL (11.5-15.3); Lymphocytes # 1.9 10^3/uL (0.8-4.8); Mean Corpuscular HGB Conc 31.4 g/dL (30.0-36.0); Mean Corpuscular Hemoglobin 28.9 pg (28.0-34.0); Mean Platelet Volume 11.2 fL (7.4-10.4); Monocytes # 0.3 10^3/uL (0.2-0.9); Monocytes % 5.4 %; Neutrophils # 3.81 10^3/uL (1.8-7.7); Neutrophils % 60.2 %; Nucleated Red Blood Cells % 0 %; Platelet Count 97 10^3/cmm (130-400); Red Blood Count 4.88 10^6/uL (4.1-5.3); Red Cell Distribution Width 14.6 % (12.1-15.1); White Blood Count 6.3 10^3/uL (4.0-10.0)
[2020-02-29 05:18] LABS: Magnesium 1.9 mg/dL (1.7-2.3)
[2020-02-29 05:19] LABS: Alanine Aminotransferase 34 U/L (0-33); Albumin Level 3.6 g/dL (3.5-5.2); Alkaline Phosphatase 177 IU/L (35-105); Anion Gap 13.8 (5-19); Aspartate Amino Transferase 26 U/L (0-32); Blood Urea Nitrogen 15 mg/dL (6-20); Calcium 9.8 mg/dL (8.5-10.5); Carbon Dioxide 30 mmol/L (22-29); Chloride 105 mmol/L (98-107); Globulin 3.3 g/dL (1.3-4.6); Glomerular Filtration Rate 88.6 mL/min (90-130); Glucose 72 mg/dL (65-115); Osmolality Calculated 299 mOsm/kg (285-295); Potassium 3.8 mmol/L (3.5-5.1); Sodium 145 mmol/L (136-145); Total Bilirubin 0.6 mg/dL (0.15-1.2); Total Protein 6.9 g/dL (6.6-8.7)
[2020-02-29] MEDS: insulin nph human 100 units/1 mL 80 UNIT SUBCUT ×2 (06:05→17:15)
[2020-02-29 06:11] LABS: Glucose Point of Care 108 mg/dL (70-110)
--- NOTE | 2020-02-29 06:23 | PC.NURSE ---
Patient sitting up in bed watching TV at this time. Patient was educated on not taking home meds out of her purse especially insulin to prevent blood sugars from bottoming out and patient receiving double medication unknowingly. Patient verbalized understanding. Call light within reach. Continue care.
--- NOTE | 2020-02-29 07:00 | USCV_ITS ---
Aspen Lama Age: 49 Gender: F : 1970 Exam Date: 02/29/2020 06:27 Ordering Phys: Walter Hartley MD Technologist: Maurizio Awad Exam Location: [facility] Indication: CHEST PAIN BP: 129 / 82 HR: 72 Rhythm: Sinus Technical Quality: Adequate MEASUREMENTS (Male / Female) Normal Values 2D ECHO LV Diastolic Diameter PLAX 5.5 cm 4.2 - 5.9 / 3.9 - 5.3 cm LV Systolic Diameter PLAX 3.6 cm IVS Diastolic Thickness 1.1 cm 0.6 - 1.0 / 0.6 - 0.9 cm IVS Systolic Thickness 1.8 cm LVPW Diastolic Thickness 1.4 cm 0.6 - 1.0 / 0.6 - 0.9 cm LVPW Systolic Thickness 1.8 cm LVOT Diameter 2.2 cm LV Ejection Fraction 2D Teich 62.8 % LV Ejection Fraction MOD 2C 54.6 % LV Ejection Fraction 2C AL 55.0 % LA Diameter 4.5 cm LA Width 3.5 cm LA Height 5.2 cm RA Width 3.1 cm RA Height 5.1 cm Aorta at Sinotubular Diameter 1.4 cm M-MODE LV Diastolic Diameter MM 5.3 cm 4.2 - 5.9 / 3.9 - 5.3 cm LV Systolic Diameter MM 3.9 cm LV Ejection Fraction MM Teich 50.5 % IVS Diastolic Thickness MM 1.0 cm 0.6 - 1.0 / 0.6 - 0.9 cm IVS Systolic Thickness MM 1.7 cm LVPW Diastolic Thickness MM 1.6 cm 0.6 - 1.0 / 0.6 - 0.9 cm LVPW Systolic Thickness MM 2.0 cm RV Diastolic Diameter MM 2.3 cm Aortic Annulus Diameter 4.1 cm LA Ao Ratio MM 1.1 MV E Point Septal Separation 1.4 cm DOPPLER AV Peak Velocity 141.0 cm/s LVOT Peak Velocity 75.0 cm/s AV Area Cont Eq vti 1.7 cm squared AV Area Cont Eq pk 2.0 cm squared MV Area PHT 3.2 cm squared Mitral E to A Ratio 1.0 MV E' Velocity 45.0 cm/s Mitral E to MV E' Ratio 7.7 Mitral E to LV E' Lateral Ratio 8.5 Mitral E to LV E' Septal Ratio 7.2 TR Peak Velocity 139.3 cm/s TR Peak Gradient 7.8 mmHg TV Peak E Velocity 82.0 cm/s Right Atrial Pressure 3.0 mmHg Pulmonary Artery Systolic Pressu 10.8 mmHg PV Peak Velocity 104.0 cm/s FINDINGS Left Ventricle Mild hypokinesia of the basal and mid anteroseptal segments. LV ejection fraction of 55%Grade I/IV diastolic dysfunction (abnormal relaxation filling pattern), normal to mildly elevated filling pressures. Mild left ventricular hypertrophy. Right Ventricle Normal right ventricular size and systolic function. Right Atrium The right atrium is normal in size. Left Atrium The left atrium is normal in size. Mitral Valve Thickened mitral valve. Aortic Valve Thickened aortic valve. Tricuspid Valve No gross abnormalities noted . Pulmonic Valve No gross abnormalities noted Pericardium Normal pericardium without effusion. Aorta Normal ascending aorta dimension. CONCLUSIONS Mild hypokinesia of the basal and mid anteroseptal segments. LV ejection fraction of 55%. Grade I/IV diastolic dysfunction (abnormal relaxation filling pattern), normal to mildly elevated filling pressures. Mild left ventricular hypertrophy. Minimally thickened aortic and mitral valves. No significant stenotic or regurgitant lesions There is no pericardial effusion. There are no intracardiac masses. Compared to the study from 11/15/2019, the wall motion abnormality appears to be new Dr Marce Matthew MD FACC (Electronically Signed) Final Date: 29 February 2020 14:02 S
[2020-02-29] MEDS: nicotine 14 mg Patch 1 PATCH TRANSDERMA (09:02)
[2020-02-29] MEDS: atorvastatin 40 mg Tablet 80 MG PO (09:02)
[2020-02-29] MEDS: aspirin 81 mg Chew Tablet PO (09:03)
[2020-02-29] MEDS: pregabalin 150 mg Capsule PO ×2 (09:03→17:15)
[2020-02-29] MEDS: spironolactone 25 mg Tablet PO (09:03)
[2020-02-29] MEDS: venlafaxine ER (24HR) 75 mg Capsule PO (09:03)
[2020-02-29] MEDS: clopidogrel 75 mg Tablet PO (09:03)
[2020-02-29] MEDS: pantoprazole DR 40 mg Tablet PO (09:03)
[2020-02-29] MEDS: estradiol 1 mg Tablet PO (09:03)
[2020-02-29] MEDS: metoprolol succinate ER (24 HR) 25 mg Tablet PO (09:04)
--- NOTE | 2020-02-29 09:33 | PC.CHAP ---
Pastoral Care Encounter/Spiritual Assessment Type of Contact [] Declined eyeglass cutter visit [] Patient/Family/Request visit [] Outpatient visit [] Follow-up visit [] Physician referral [] Code/Alert [x] Routine visit [] Staff referral [] Actively dying [] Patient sleeping [] Family support [] [] Out of room [] Palliative care [] [] Receiving care in room [] Pre-surgical visit [] Trauma [] Long length of stay [] ICU visit [] Other: Relational/Emotional Strength [] Patient feels connected with others/family/visitors/staff [] Distress [] Loneliness/isolation [] Abandonment Spirituality of Patient [] Person of Marlee [] Attends Jehovah'S Witness of their Marlee [] Believes in Prayer [] Reads Bible or Quaker materials [] There are Spiritual issues to be addressed 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 Interventions [x] Prayer [x] Active listening [x] Non-anxious presence [x] Spiritual/emotional support [] Crisis/trauma care [] Spiritual counseling [] Bereavement support [] Provided bereavement packet [] Provided Bible/devotional materials [] Provided toy/stuffed animal, coloring book to patient or family member [] Provided Communion [] Anointing/[place] [] Salvation [x] Completed spiritual assessment [] Other: Impact on Illness or Injury [] Angry [] Fearful [] Anxious [] Often cries [] Exhaustion [] Unable to work [] Unable to attend taoist [] Unable to walk/stand [] Unable to read [] Unable to drive [] Unable to eat/drink [] Unable to sleep [] Unable to be with family [] Patient intubated [] Other: Summary Patient feeling better/ stress test Time spent with patient 10 min
[2020-02-29 11:21] LABS: Glucose Point of Care 272 mg/dL (70-110)
[2020-02-29 16:47] LABS: Glucose Point of Care 207 mg/dL (70-110)
--- NOTE | 2020-02-29 19:12 | PC.NURSE ---
Shift Summary Patient had uneventful shift. Patient up ad ursula throughout the day. Patient denies any shortness of breath or difficulty breathing. No further needs identified at this time. Nurse to continue to monitor.
--- NOTE | 2020-02-29 19:41 | PC.NURSE ---
Patient provided home entresto bottle. Medication taken to pharmacy so it can be scanned for administration.
[2020-02-29 20:23] LABS: Coronavirus Lab Test PTC Negative
--- NOTE | 2020-02-29 21:02 | P.PN_ITS ---
Subjective Subjective: Interval history: Denies any chest pain. Today she is feeling somewhat better. Has not had any palpitations. No dizziness. Has been getting around her room. Vitals/I&O/Wt Last Vital Signs Temp 98.2 F 02/29/20 20:00 Pulse 80 02/29/20 20:27 Resp 17 02/29/20 20:27 BP 121/69 02/29/20 20:00 Pulse Ox 97 02/29/20 20:27 02/29/20 02/29/20 02/29/20 06:59 14:59 22:59 Intake Total 150 / 1390 720 / 720 600 / 1320 Output Total 500 / 500 Balance -350 / 890 720 / 720 600 / 1320 Physical Exam Const: COMMON NORMALS: no acute distress and patient oriented x3 NUTRITIONAL APPEARANCE: obese HENMT: COMMON NORMALS: oropharynx normal Neck/C-Spine: COMMON NORMALS: no JVD Resp: COMMON NORMALS: normal respiratory effort and clear to auscultation bilaterally AUSCULTATION: clear to auscultation bilaterally Cardio: COMMON NORMALS: no JVD, regular rhythm, S1 normal heart sound present, S2 normal heart sound present and No murmurs present (Cardio) RHYTHM: regular rhythm HEART SOUNDS: S1 normal heart sound present and S2 normal heart sound present GI: COMMON NORMALS: Normal to inspection, nondistended, normoactive bowel sounds present, Soft to palpation and non-tender PALPATION: Yes Soft to palpation Extremity: COMMON NORMALS: no joint enlargement and no pedal edema Neuro: COMMON NORMALS: patient oriented x3 and moves all extremities Skin: COMMON NORMALS: no rashes or lesions noted GENERAL SKIN EXAM: no joycelyn hes or lesions noted Data : 02/29/20 03:57 02/29/20 03:57 A&P Assessment and plan (1) Chest pain: No recurrence of chest pain here. Troponin series not suggestive of acute AL, however, does have mild hypokinesia of the basal and mid anteroseptal segments on echocardiogram. COVID-19 is negative. Stress test tomorrow. With known coronary disease, previously 50% lesion of RCA. Complete troponin and EKG series. Assess limited TTE. Monitor on telemetry. As per discussion with her would benefit from stress testing subsequently if no signs of acute AL. So far troponin has not been rising suggest this. Continue cardiac medications during, statin, beta-dilcia. Status: Acute Qualifiers: Chest pain type: unspecified Qualified Code(s): R07.9 - Chest pain, unspecified (2) Tachycardia: Tachycardia resolved. No recurrence of tachycardia or bradycardia on monitoring. No chest pain. COVID-19 negative. TSH normal. Sinus tachycardia 130s on presentation. Appears to have resolved so far, HR 80- 90. Discussed with her. 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 She denies having issues of bradycardia or tachycardia previously. Says has been taking her metoprolol 25 mg daily. Denies missing any doses or dose changes recently. Has been having on and off chest pain over the last 4 months. None today. This appears to be triggered by exertion, but particularly also working with her arms like sweeping. Status: Acute (3) Fatigue: As above, monitor heart rates. Normal TSH. Negative COVID-19 PCR. Status: Acute (4) Transaminitis: Known history of fatty infiltration of the liver. This appears to be chronic. Monitor for now. No abdominal pain. History of cholecystectomy. Status: Acute Additional A&P Information Hx ischemic cardiomyopathy: With improvement in ejection fraction on last nafisa ging up to 60%. LifeVest was discontinued. Currently EF is perhaps slightly worse, but still within normal range. Grade 1 diastolic dysfunction. Mild LVH. Smoking addiction: Discussed smoking cessation for 4 minutes. She says has been trying to quit. Failed Chantix twice. She is agreeable to nicotine patch and gum for cravings in the hospital. We have discussed various risks and organ sy stems that smoking can affect. She will continue trying to quit. Diabetes: For now continue insulin without increasing, does have glucose go into 200s, however, this morning was 72. Takes regular insulin at home. NPH here at lower starting dose. Consistent carbohydrate diet. Sliding scale insulin. HTN HLD NAFLD Other chronic comorbidities Attestations Medical Necessity Statement*: Continue admission for assessment management of chest pain episodes with known coronary disease, hypokinesia noted in basal and anteroseptal segments of left ventricle. 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
[2020-02-29 21:24] LABS: Glucose Point of Care 198 mg/dL (70-110)
[2020-03-01] VITALS (35 sets, daily range): BP systolic 110–152; BP diastolic 64–95; PULSE 65–97; RESP 3–30; TEMP 36.6–37.1; O2SAT 86–98
[2020-03-01] MEDS: heparin 5,000 unit/mL INJ 1 mL 5000 UNIT SUBCUT ×2 (01:22→10:30)
--- NOTE | 2020-03-01 01:58 | PC.NURSE ---
PCR results came back negative for covid and notified Dr. Osuna and orders given to remove isolation contact and droplet precautions. Patient is NPO after midnight for stress test tomorrow. Patient is resting in room with eyes closed. Call light is within reach. Continue care.
[2020-03-01 05:21] LABS: Basophils % 0.7 %; Eosinophils # 0.2 10^3/uL (0.0-0.8); Eosinophils % 2.6 %; Hematocrit 44.8 % (37.0-47.0); Hemoglobin 14.3 g/dL (11.5-15.3); Lymphocytes # 1.8 10^3/uL (0.8-4.8); Lymphocytes % 30.1 %; Mean Corpuscular HGB Conc 31.9 g/dL (30.0-36.0); Mean Corpuscular Hemoglobin 28.8 pg (28.0-34.0); Mean Corpuscular Volume 90.3 fL (81-99); Mean Platelet Volume 10.4 fL (7.4-10.4); Monocytes # 0.4 10^3/uL (0.2-0.9); Neutrophils # 3.51 10^3/uL (1.8-7.7); Neutrophils % 60.3 %; Nucleated Red Blood Cells % 0 %; Platelet Count 119 10^3/cmm (130-400); Red Blood Count 4.96 10^6/uL (4.1-5.3); Red Cell Distribution Width 14.5 % (12.1-15.1); White Blood Count 5.8 10^3/uL (4.0-10.0)
[2020-03-01 05:50] LABS: Alanine Aminotransferase 33 U/L (0-33); Albumin Level 3.7 g/dL (3.5-5.2); Alkaline Phosphatase 173 IU/L (35-105); Aspartate Amino Transferase 24 U/L (0-32); Blood Urea Nitrogen 13 mg/dL (6-20); Calcium 9.8 mg/dL (8.5-10.5); Carbon Dioxide 27 mmol/L (22-29); Chloride 104 mmol/L (98-107); Globulin 3.4 g/dL (1.3-4.6); Glomerular Filtration Rate 105.8 mL/min (90-130); Glucose 79 mg/dL (65-115); Osmolality Calculated 293 mOsm/kg (285-295); Sodium 142 mmol/L (136-145); Total Protein 7.1 g/dL (6.6-8.7)
[2020-03-01 06:08] LABS: Glucose Point of Care 93 mg/dL (70-110)
--- NOTE | 2020-03-01 06:11 | PC.NURSE ---
Patients blood sugar was 93 this morning with 80units of NPH ordered. Contacted Dr. Osuna and he said to skip this mornings dose because patient is NPO until after a procedure today. Call light is within reach. Continue care.
[2020-03-01] MEDS: regadenoson 0.4 Mg/5 ml Syringe IVP (07:52)
--- NOTE | 2020-03-01 08:00 | ECG_ITS ---
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 Interpretive Statements NAME OF STUDY: LEXISCAN SESTAMIBI STRESS TEST INDICATION: Chest Pain; Coronary Artery Disease, PROCEDURE: At the baseline, the EKG revealed normal sinus rhythm with a poor R wave progression. Possible old septal CT. The baseline blood pressure was 136/81 mm Hg with a heart rate of 83 beats/min. Lexiscan was infused over a period of 20 seconds. A total of 0.4 milligrams of Lexiscan was infused. The stress phase was continued for a total of 5 minutes. Heart rate at the end of the stress phase was 103 with a blood pressure 109/75. The EKG at the peak infusion revealed no significant changes. Sestamibi was injected 20 seconds after the Lexiscan infusion. Blood pressure at the end of the recovery phase was 112/67 with a heart rate of 102 per minute. CONCLUSION: 1. No significant EKG changes with the LexiScan infusion 2. No LexiScan induced chest pain or cardiac arrhythmia 3. Normal blood pressure and heart rate response 4. Sestamibi/sestamibi perfusion scan pending; see separate report. Electronically Signed On 03-01-2020 10:11:03 CDT by Marce Matthew M.D. [email or web address]
--- NOTE | 2020-03-01 08:36 | PC.NURSE ---
off unit to stress test
--- NOTE | 2020-03-01 09:52 | PC.RESP ---
SMOKING CESSATION INFORMATION SENT TO PATIENT.
[2020-03-01] MEDS: nicotine 14 mg Patch 1 PATCH TRANSDERMA (10:28)
[2020-03-01] MEDS: estradiol 1 mg Tablet PO (10:28)
[2020-03-01] MEDS: metoprolol succinate ER (24 HR) 25 mg Tablet PO (10:29)
[2020-03-01] MEDS: pregabalin 150 mg Capsule PO ×2 (10:29→19:07)
[2020-03-01] MEDS: spironolactone 25 mg Tablet PO (10:29)
[2020-03-01] MEDS: venlafaxine ER (24HR) 75 mg Capsule PO (10:29)
[2020-03-01] MEDS: atorvastatin 40 mg Tablet 80 MG PO (10:29)
[2020-03-01] MEDS: clopidogrel 75 mg Tablet PO (10:29)
[2020-03-01] MEDS: aspirin 81 mg Chew Tablet PO (10:30)
[2020-03-01] MEDS: docusate sodium 100 mg Capsule PO (10:30)
[2020-03-01] MEDS: pantoprazole DR 40 mg Tablet PO (10:30)
[2020-03-01 10:58] LABS: Glucose Point of Care 164 mg/dL (70-110)
[2020-03-01] MEDS: ergocalciferol (vitamin D2) 50,000 Unit Capsule 50000 UNIT PO (12:06)
[2020-03-01] MEDS: acetaminophen 325 mg Tablet 650 MG PO (12:53)
--- NOTE | 2020-03-01 13:14 | P.CONIM_ITS ---
Providers/Reason For Consult Consulting Physican/Specialty*: Swathi Matthew MD/cardiology Reason for Consult*: Patient with atypical chest symptoms, history of coronary disease and PCI, abnormal myocardial perfusion imaging Attending Physician: Walter Hartley Primary Care Provider: HAI Merlos History of Present Illness History of Present Illness Aspen Lama is a 49 year old female with a history of hypertension, dyslipidemia, type 2 diabetes, recent non-ST patient myocardial infarction(in July of this year), status post PCI of the LAD, a specific complaints of generalized weakness, nausea and shortness of breath. Patient apparently was mid to the hospital July of this year with features of non-ST elevation myocardial infarction. Subsequent cardiac catheterization revealed a high-grade lesion in the proximal left and descending artery. Patient underwent PCI of the LAD lesion. She had uneventful postprocedure course. Her LV ejection fraction was 30 to 35% at that time by echocardiogram. Repeat echocardiogram in October of this year revealed ejection fraction around 62%. Patient apparently been doing okay up until 2 weeks ago when she started having significant dyspnea on exertion and extreme fatigue/tiredness. For the last 2 to 3 days, prior to the current hospitalization, she been feeling weak somewhat nauseous, and significant shortness of breath. She did have any fever or chills. Moderate dry cough. Also had some epigastric discomfort. She is tested negative for COVID x2. She never had any fever or chills. She was experiencing some discomfort in the chest which is described as mild aching sensation. No orthopnea or PND. No fever or chills. No other specific complaints. 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 On the day of the hospitalization, patient was in the school. She was feeling extremely weak and nauseous. She was found to have a heart rate in the 150s by the school nurse. Subsequent heart rate was in the 50s and 60s. She also is complaining of shortness of breath with no fever or chills. She was seen in the emergency room for further evaluation. Myocardial infarction was ruled out. Her resting troponin T was slightly elevated. She is admitted to hospital for further evaluation and management. Review of Systems Narrative: CONSTITUTIONAL: Has been having feeling of lethargy/weakness/dyspnea on exertion for the last couple of weeks. EYES: No blurring of vision or other visual disturbances lately. ENT: No hoarseness of voice, auditory disturbances or sore throat. CARDIOVASCULAR: As mentioned above. RESPIRATORY: No significant cough. GASTROINTESTINAL: Patient had nausea and abdominal discomfort for few days prior to the hospital admission. GENITOURINARY: No dysuria or hematuria. INTEGUMENTARY: No skin rashes or history of skin cancer. NEURO: No transient ischemic attacks or amaurosis. PSYCHIATRIC: No history of psychosis or major depression. HEMATOLOGIC: No bleeding disorders or significant anemia. ENDOCRINE: Type 2 diabetes as mentioned above MUSCULOSKELETAL: No recent joint pain or swelling. ALLERGY/IMMUNOLOGY: As mentioned above. Meds/Allergies Home Medications and Allergies Home Medications Medication Instructions Recorded Confirmed Last Taken Type albuterol sulfate 90 mcg/actuation 2 puff INHALATION Q6H PRN 07/08/19 02/28/20 Unknown History aerosol inhaler estradiol 1 mg tablet 1 mg PO DAILY 07/08/19 02/28/20 02/28/20 History Humulin R U-500 (Conc) Insulin See Rx Instructions .ROUTE .COMPLEX 08/03/19 02/28/20 02/28/20 History ergocalciferol (vitamin D2) 1,250 1,250 mcg PO .COMPLEX 10/21/19 02/28/20 02/23/20 History mcg (50,000 unit) capsule pregabalin 150 mg capsule 150 mg PO BID 30 Days #60 cap 11/03/19 02/28/20 Unknown Rx atorvastatin 80 mg tablet See Rx Instructions .ROUTE 12/07/19 02/28/20 02/28/20 Rx .COMPLEX #90 tab aspirin 81 mg PO DAILY 02/28/20 02/28/20 02/28/20 History clopidogrel 75 mg PO DAILY 02/28/20 02/28/20 02/28/20 History docusate sodium [Stool Softener] 100 mg PO EVERY OTHER DAY 02/28/20 02/28/20 02/28/20 History metoprolol succinate 25 mg PO DAILY 02/28/20 02/28/20 02/28/20 History pantoprazole 20 mg PO DAILY 02/28/20 02/28/20 02/28/20 History sacubitril-valsartan [Entresto] See Rx Instructions .ROUTE .COMPLEX 02/28/20 02/28/20 02/28/20 History spironolactone 25 mg PO DAILY 02/28/20 02/28/20 02/28/20 History venlafaxine 75 mg PO DAILY 02/28/20 02/28/20 02/28/20 History Allergies Allergy/AdvReac Type Severity Reaction Status Date / Time cephalexin [From Keflex] Allergy ADR-Itching Verified 02/28/20 09:57 Iodinated Contrast Media Allergy ADR-Cough Verified 02/28/20 09:57 Penicillins Allergy ADR-Itching Verified 02/28/20 09:57 Current Medications Current Medications Generic Name Dose Route Start Last Admin Trade Name Freq PRN Reason Stop Dose Admin Acetaminophen 650 mg 03/01/20 12:37 03/01/20 12:53 Tylenol PO 650 mg Q4H PRN Administration MILD PAIN OR INCREASE TEMP Aspirin 81 mg 02/29/20 09:00 03/01/20 10:30 Aspirin Chewable PO 81 mg DAILY RUSSELL Administration Atorvastatin Calcium 80 mg 02/29/20 09:00 03/01/20 10:29 Lipitor PO 80 mg DAILY RUSSELL Administration Clopidogrel Bisulfate 75 mg 02/29/20 09:00 03/01/20 10:29 Plavix PO 75 mg DAILY RUSSELL Administration Docusate Sodium 100 mg 03/01/20 09:00 03/01/20 10:30 Colace PO 100 mg EVERY OTHER DAY RUSSELL Administration Ergocalciferol 50,000 unit 03/01/20 09:00 03/01/20 12:06 Vitamin D2 PO 50,000 unit We RUSSELL Administration Estradiol 1 mg 02/29/20 09:00 03/01/20 10:28 Estrace PO 1 mg DAILY [facility] Administration Heparin Sodium (Beef Lung) 5,000 unit 02/28/20 18:00 03/01/20 10:30 Heparin SUBCUT 5,000 unit Q8H RUSSELL Administration Insulin Aspart 0 unit 02/28/20 18:00 03/01/20 12:06 Novolog SUBCUT 6 unit WM&BEDTIME [facility] Administration Protocol Insulin Human NPH 80 unit 02/29/20 07:00 03/01/20 06:12 Novolin N SUBCUT Not Given BIDAC [facility] Metoprolol Succinate 25 mg 02/29/20 09:00 03/01/20 10:29 Toprol Xl PO 25 mg DAILY [facility] Administration Nicotine 1 patch 02/28/20 17:50 03/01/20 10:28 Nicoderm 14 Mg Patch TRANSDERMA 1 patch DAILY RUSSELL Administration Non-Formulary Medication 0 tab 02/28/20 18:00 03/01/20 10:30 Sacubitril-Valsartan [Entresto] PO 1 tab BID RUSSELL Administration Pantoprazole Sodium 40 mg 02/29/20 09:00 03/01/20 10:30 Protonix PO 40 mg DAILY RUSSELL Administration Pregabalin 150 mg 02/28/20 18:00 03/01/20 10:29 Lyrica PO 150 mg BID RUSSELL Administration Spironolactone 25 mg 02/29/20 09:00 03/01/20 10:29 Aldactone PO 25 mg DAILY RUSSELL Administration Venlafaxine HCl 75 mg 02/29/20 09:00 03/01/20 10:29 Effexor Xr PO 75 mg DAILY RUSSELL Administration PFSH Acute PFSH: Medical History Acid reflux Atherosclerotic heart disease of [place] coronary artery with unstable angina pectoris Benign essential hypertension with target blood pressure below 140/90 Diabetes Dyslipidemia associated with type 2 diabetes mellitus Hypercholesterolemia Ischemic cardiomyopathy Morbid obesity with BMI of 45.0-49.9, adult Non-ST elevation OR (NSTEMI) Nonalcoholic fatty liver disease Uses LifeVest defibrillator Surgical History H/O heart artery stent H/O: hysterectomy History of History of cholecystectomy Family History Father CAD (coronary artery disease) Diabetes Other Chest pain Social History Smoking and tobacco status: current every day smoker Alcohol intake: never Adopted: No Caregiver/support person: No Lives independently: No Household members: spouse Marital status: Current occupational status: employed History of recent travel: No Sexually active: Yes Current gender identity: Female Vitals/I&O/Wt Last Vital Signs Temp 98.1 F 03/01/20 10:59 Pulse 76 03/01/20 10:59 Resp 18 03/01/20 10:59 BP 121/68 03/01/20 10:59 Pulse Ox 96 03/01/20 10:59 1003/01/20 03/01/20 22:59 06:59 14:59 Intake Total 600 / 1320 630 / 630 Balance 600 / 1320 630 / 630 Physical Exam Narrative: EXAM NARRATIVE: GENERAL: The patient is alert and oriented times three. Not in any acute distress. Morbidly obese HEENT: No significant pallor, icterus or lymphadenopathy. The pupils are reactant to light. Oral cavity: There are no mucous membrane lesions. Funduscopic examination: Fundus is not visualized NECK: Trachea appears to be central. No masses noted. No JVD or thyromegaly appreciated. No carotid bruit. RESPIRATORY: Chest is symmetrical. No intercostals muscle retraction or any accessory muscle activation. There is no chest wall tenderness. Breath sounds are heard bilaterally. No rales or rhonchi heard. No evidence of any consolidation. BREASTS: Deferred. HEART: The PMI could not be palpated. No palpable precordial events. S1 and S2 are normal. No S3 or S4 heard. No pericardial rub or any click heard. ABDOMEN: No vessel pulsations or distention. No tenderness. No organomegaly appreciated. No abdominal bruit. Bowel sounds are normally heard. : Deferred. RECTAL: Deferred. LYMPHATIC: No lymphadenopathy noted in the neck or groin. EXTREMITIES: No edema or cyanosis. No clubbing. The pulses are symmetrical bilaterally. The radial, femoral, dorsalis pedis and the posterior tibial pulses are palpated and found to be in good volume and amplitude. MUSCULOSKELETAL: No acute joint deformities or swelling SKIN: There are no significant scars or skin rash noted. NEUROPSYCHIATRIC: The patient is alert and oriented x3. Appears to be in a good mood. The higher functions are grossly within normal limits. No tremors or rigidity noted. Data Other Data: Other data: Echocardiogram from 02/29/2020 Mild hypokinesia of the basal and mid anteroseptal segments. LV ejection fraction of 55%. Grade I/IV diastolic dysfunction (abnormal relaxation filling pattern), normal to mildly elevated filling pressures. Mild left ventricular hypertrophy. Minimally thickened aortic and mitral valves. No significant stenotic or regurgitant lesions There is no pericardial effusion. There are no intracardiac masses. Compared to the study from 11/15/2019, the wall motion abnormality appears to be new The EKG revealed Initial EKG revealed a sinus tachycardia with a rate of 130 bpm. Poor R wave progression. Possible old septal OR. Repeat EKG showed a sinus rhythm with features of old septal OR. Chest x-ray revealed borderline cardiac silhouette with no lung infiltrate. No acute pathology noted. A&P Assessment and plan (1) Atherosclerotic heart disease of [place] coronary artery with other forms of angina pectoris: Patient symptoms are somewhat atypical. However her recent onset of extreme fatigue/shortness of breath with activities and the presenting symptoms are suggestive of a coronary syndrome. Currently she is fairly stable. Abnormal perfusion scan is suggestive of ischemia in the distribution of the left artery descending artery predominantly with some involvement of the circumflex artery. For further evaluation of the coronary status, she may benefit from a cardiac catheterization. The option of medical treatment also was discussed. Patient is wanting to go ahead with the coronary angiogram and possible PCI. The risk of bleeding, hematoma, vascular injury, myocardial infarction, CVA, renal failure and other concomitant complications were explained in detail. Patient understood this well and consented to proceed. Status: Acute (2) Abnormal myocardial perfusion study: A perfusion scan is suggestive of a moderate area of ischemia in the distribution of the left anterior descending artery and some involvement of the circumflex artery. This may need to be further evaluated. Status: Acute (3) Diabetes: Aggressive management of the diabetes would be appropriate. Status: Acute Qualifiers: Diabetes mellitus type: type 2 Diabetes mellitus detention insulin use: with detention use Diabetes mellitus complication status: without complication Qualified Code(s): E11.9 - Type 2 diabetes mellitus without complications; Z79.4 - MCFP (current) use of insulin (4) Dyslipidemia associated with type 2 diabetes mellitus: The current medications may be continued. Status: Acute (5) Ischemic cardiomyopathy: Patient's ejection fraction has significantly improved since her non-ST elevation myocardial infarction in July of this year. Based on the patient's ability response and the results of the above, further recommendations will be made. Thank you for the opportunity to evaluate this patient make these recommendations Status: Acute Additional A&P Information We will keep the patient n.p.o. for the time being. We will go ahead and schedule the patient for the cardiac catheterization this evening. Based on the angiogram findings, further recommendations will be made. 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
[2020-03-01] MEDS: sodium chloride 0.9% 1,000 ML 50 ML IV (13:32)
--- NOTE | 2020-03-01 14:57 | PC.NURSE ---
allergy to contrast dye Pt james moderate allergy reaction to contrast dye/iodine. Pt stated she has cough and hives symptoms. notified Dr. antoine and received orders to give solu-medrol 60 mg IVP and Pepcid oral 20 mg now. And give benadryl as well pre-cath procedure.
[2020-03-01] MEDS: famotidine 20 mg Tablet PO (15:23)
[2020-03-01] MEDS: diphenhydrAMINE 50 mg Capsule PO (15:23)
--- NOTE | 2020-03-01 16:10 | XACV_ITS ---
Exam Room: [facility] Ht: 178 cm Wt: 147 kg BSA: 2.77 m2 Gender: Female : 1970 Any Known Allergies: Other Exam Priority: Routine Procedure(s): Procedure Description: Diagnostic procedure Procedure Description: Left Heart Catheterization Procedure Description: Coronary Angiography Diagnostic Cath Status: Urgent Diagnostic Findings * The left main is a medium caliber vessel with minimal narrowing of the distal segment. No significant stenotic lesions were noted. * The left hand descending artery is a medium to large caliber vessel which appears to wrap around the LV apex. The proximal stented segment was found to be widely patent. Mild diffuse irregularities are noted in the mid and distal segment. Just around the LV apex, there is a high-grade lesion of around 90%. The second diagonal branch was relatively small caliber vessel with moderate to severe diffuse disease in the proximal and mid segment. The first diagonal branch was found to have around 60% ostial narrowing. This appears to be a jailed lesion.. * The circumflex artery is a * relatively large caliber dominant vessel. No significant stenotic lesions were noted.. * The right coronary artery is a nondominant small caliber vessel which has a high and posterior takeoff. Selective engagement was difficult even after trying multiple catheters. The artery was found to have moderate tubular narrowing in the proximal segment. Conclusions 1. This is a 49-year-old white female with history of hypertension, type 2 diabetes, dyslipidemia, coronary artery disease, non-ST elevation myocardial infarction, recent PCI in July 2019, presented with complaints of palpitation, weakness and shortness of breath. She also had some atypical chest symptoms. Myocardial infarction was ruled out. She had a myocardial perfusion imaging which revealed moderate area of reversible defect in the anterior and anterolateral wall regions, suggestive of ischemia in the distribution of the left anterior descending artery and the circumflex artery. For further evaluation of her coronary status, a repeat cardiac catheterization was recommended. Patient underwent left heart catheterization with a left and right coronary angiogram today. The findings are as follows. 2. Left main was found to have mild disease. Left anterior descending artery was found to have a high-grade lesion around the apex. The second diagonal branch was found to have severe diffuse disease in the proximal and mid segment. Dominant circumflex artery was found to have no significant stenotic lesions. Nondominant right coronary artery was found to have a moderate tubular lesion proximally. LVEDP of 12 mmHg. 3. Based on the angiogram findings, it was decided to optimize the medical treatment. The diagonal branch and the distal LAD were found to be relatively small caliber vessels for percutaneous intervention. Recommendations * Continue current medical management and risk factor modification. Diagnostic RX Recommendation: medical therapy and/or counseling LV EDP: 12 mmHg Left Ventriculography Findings: * LV catheterization was performed using the left coronary catheter. The LVEDP was 12 mmHg.. Pressures Phase:Rest AO : 126 / 74 ( 96 ) @ 11:51:00 AM 122 / 63 ( 90 ) @ 11:51:00 AM 103 / 80 ( 90 ) @ 11:52:00 AM LV : 130 / -7 / @ 11:51:00 AM 132 / -5 / @ 11:51:00 AM Valves Phase:DefaultPhase AV : 7.0 @ 5:21:11 PM AV Mean Gradient: 14.0 @ 5:21:11 PM Clinical Evaluation EBL: 5mL-10mL Procedural Details Procedure Consent Obtained. Pre-Procedure Time Out. Identified patient by full name and date of as verbalized by the patient/guarantor. Does the consent match the physician's order: Yes. Accurate & Complete Informed Consent: Yes. Inpatient/Outpatient History & Physical on Chart: Yes. If H&P is completed, is and addenduem needed: No; If yes, is the addendum complete: N/A. Visualize and Verify Site with Patient/Guarantor: N/A. Relevant Radiology Images available: Yes. Pre-op teaching completed and patient verbalized understanding. The risks, benefits, and alternatives of sedation and/or procedure were discussed by physician. The patient agrees to continue. Procedure started. [facility] Clinical Fraility Score: 4: Vulnerable. Senior Research Analyst Indications: Worsening Angina, abnormal stress test. Chest Pain Symptom Assessment: Atypical Angina. Cardiovascular Instability: No. Correct patient, site and procedure confirmed by cath team. PERRLA. Strong, equal hand decorating machine tender bilaterally. Lungs clear x 5 lobes. IV Site on Arrival: 20 gauge in the right anticubital. IV Fluids: 0.9% NaCl at KVO. 0 mL infused prior to laborer filter plant. Pre Procedural Pulses: bilateral radial was 3+. Pre Procedural Pulses: bilateral dorsalis pedis was 3+. Pre Procedural Pulses: bilateral posterior tibial was 3+. Oxygen started at 2liters/min via nasal canula. bilateral groins was prepped with chloroprep then draped in the usual sterile fashion. right radial was prepped with chloroprep then draped in the usual sterile fashion. Baseline sample Acquired. HR: 77 BPM. Equipment: 6F - Radial. Cardiac Cath Pack. ACIST Manifold Kit Model BT 2000. Heparinized Saline (2 units/mL), 1000 mL bag. Physician notified. Physician arrived. Physician scrubbed in. Immediate Pre-Procedure Time Out. Correct Patient: Yes; Correct Procedure: Yes; Correct Site: Yes; Correct Patient Position: Yes; Correct Supplies: Yes; Dried Flammable Prep: Yes; Blood Products Available: N/A;. Lidocaine 1% infiltrated to the right radial. Arterial access obtained. EDP Sample taken: LV 130/-8,12; HR: 90 BPM; SpO2: 94%. Pullback taken: LV 132/-6,14; AO 126/74(96); Mean: 14mmHg, Peak to Peak: 7mmHg, SEP: 9sec/min; HR: 90 BPM; SpO2: 94%. Multiple views taken of left coronary artery. Catheter redirected to the RCA. Catheter out. A 5 belizean JR4 catheter in over wire. Dr Matthew discussing case with Dr Ford. Catheter out. A 5 belizean AR MOD catheter in over wire. Catheter out. A 5 belizean 3DRC catheter in over wire. Catheter out. Physician scrubbed out. A TR Band was successful obtaining hemostatsis at the Right Radial artery insertion site. TR band placed. Hemostasis obtained. Post Procedure: Pulses reassessed and unchanged. PERRLA. Strong, equal hand decorating machine tender bilaterally. No VTE prophylaxis required. Total IV fluids: 54 mL. Medication's Wasted: Lidocaine 1% = 18 mL. Medication's Wasted: Nitro = 49.8 mg. Medication's Wasted: Heparin = 1000 units. Medication's Wasted: Other = solumedrol 85 mg. Contrast type used: Omnipaque 300 mgI/mL, 500 mL bottle. Post-op diagnosis: patent stent, severe small vessel disease. Complications: none. Estimated blood loss: 5mL-10mL. Procedure completed. Patient transferred by wheelchair to 1st floor. Vital chart was stopped. Access Site Site: Right Radial artery Sheath Size: 6 Fr Hemostasis Method: TR Band Hemostasis Success: Successful Procedure Medications Start: 4:37 PM Stop: 4:37 PM Medication: Versed Amount: 1 mg Route: I.V. Start: 4:37 PM Stop: 4:37 PM Medication: Fentanyl Amount: 50 mcg Route: I.V. Start: 4:37 PM Stop: 4:37 PM Medication: Solu-Medrol (methylprednisolone) Amount: 40 mg Route: I.V. Start: 4:43 PM Stop: 4:43 PM Medication: Versed Amount: 1 mg Route: I.V. Start: 4:43 PM Stop: 4:43 PM Medication: Fentanyl Amount: 25 mcg Route: I.V. Start: 4:48 PM Stop: 4:48 PM Medication: Nitrogylcerin Amount: 200 mcg Route: I.A. Start: 4:47 PM Stop: 4:47 PM Medication: Verapamil Amount: 5 mg Route: I.A. Start: 4:48 PM Stop: 4:48 PM Medication: Versed Amount: 1 mg Route: I.V. Start: 4:48 PM Stop: 4:48 PM Medication: Fentanyl Amount: 25 mcg Route: I.V. Start: 4:50 PM Stop: 4:50 PM Medication: Heparin Amount: 5000 units Route: I.V. Start: 4:57 PM Stop: 4:57 PM Medication: Versed Amount: 1 mg Route: I.V. I, the attending physician, have reviewed and verified all procedure medications. Yes, all medications given per verbal order History/Risk Factors Hypertension: Yes Dyslipidemia: Yes Peripheral Arterial Disease (PAD): No Myocardial Infarction (ND): Yes Obesity: Yes Renal Disease: No Tobacco Use: Current/Recent(w/in 1 year) Prior Interventions PCI: Yes CABG: No Valve Surgery: No Report Signatures Finalized by Dr Marce Matthew MD [facility] on 03/01/2020 08:36 PM
--- NOTE | 2020-03-01 16:37 | W.PM.OPSUD ---
Surgery/Procedure H&P Update DATE OF PROCEDURE: March 01, 2020 DATE H&P PERFORMED: 03/01/20 PREOP DIAGNOSIS: Chest pain, ASHD, abnormal myocardial perfusion scan PATIENT REASSESSED PRIOR TO SEDATION, WITH NO CHANGE NOTED: Yes PHYSICAL EXAM: alert, oriented x 3, clear to auscultation bilaterally and regular rate & rhythm AIRWAY EVAL/ANESTHESIA PLAN: normal airway, see other exam findings, ASA III, Risks, benefits & alternatives of sedation and/or procedure discussed and Patient agrees to continue as planned
--- NOTE | 2020-03-01 17:00 | PC.NURSE ---
From shrimp pond laborer Pt is alert, oriented,awake. denies any pain or discomfort. TR band intact. No hematoma, bleeding or swelling noted. Radial pulse is palpable +3. Call light within reach.
[2020-03-01 17:53] LABS: Glucose Point of Care 126 mg/dL (70-110)
--- NOTE | 2020-03-01 18:15 | PC.NURSE ---
called doctor Informed dr antoine that transfer orders did come through and has to verify her active meds.
--- NOTE | 2020-03-01 18:39 | PM.PN ---
Subjective Subjective: Interval history: No chest pain. Has been doing pretty well. No shortness of breath. Vitals/I&O/Wt Last Vital Signs Temp 98.8 F 03/01/20 17:18 Pulse 74 03/01/20 17:18 Resp 16 03/01/20 17:18 BP 126/70 03/01/20 17:18 Pulse Ox 98 03/01/20 17:18 03/01/20 03/01/20 03/01/20 06:59 14:59 22:59 Intake Total 630 / 630 Balance 630 / 630 Weight last 48 hrs Weight 147.418 kg Physical Exam Const: COMMON NORMALS: no acute distress and patient oriented x3 NUTRITIONAL APPEARANCE: obese HENMT: COMMON NORMALS: oropharynx normal Neck/C-Spine: COMMON NORMALS: no JVD Resp: COMMON NORMALS: normal respiratory effort and clear to auscultation bilaterally AUSCULTATION: clear to auscultation bilaterally Cardio: COMMON NORMALS: no JVD, regular rhythm, S1 normal heart sound present, S2 normal heart sound present and No murmurs present (Cardio) RHYTHM: regular rhythm HEART SOUNDS: S1 normal heart sound present and S2 normal heart sound present GI: COMMON NORMALS: Normal to inspection, nondistended, normoactive bowel sounds present, Soft to palpation and non-tender PALPATION: Yes Soft to palpation Extremity: COMMON NORMALS: no joint enlargement and no pedal edema Neuro: COMMON NORMALS: patient oriented x3 and moves all extremities Skin: COMMON NORMALS: no rashes or lesions noted GENERAL SKIN EXAM: no rashes or lesions noted Data : 03/01/20 04:35 03/01/20 04:35 A&P Assessment and plan (1) Chest pain: Noted abnormal stress test today. Due to recurrent chest pains with concern for progressive symptomatic coronary disease, with known CAD, cardiology consultation was sought. Per discussion with cardiology was taken for assessment by coronary angiography. Noted coronary disease in multiple occasions, patent prior LAD stent, lesions noted in distal LAD, diagonal branch, and also RCA. Not significant enough to call for stenting. Monitor on telemetry. Continue cardiac medications during, statin, beta-dilcia. Status: Acute Qualifiers: Chest pain type: unspecified Qualified Code(s): R07.9 - Chest pain, unspecified (2) Tachycardia: Tachycardia resolved. No recurrence of tachycardia or bradycardia on monitoring. No chest pain. COVID-19 negative. TSH normal. Sinus tachycardia 130s on presentation. Appears to have resolved so far, HR 80-90. Discussed with her. 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 She denies having issues of bradycardia or tachycardia previously. Says has been taking her metoprolol 25 mg daily. Denies missing any doses or dose changes recently. Has been having on and off chest pain over the last 4 months. None today. This appears to be triggered by exertion, but particularly also working with her arms like sweeping. Status: Acute (3) Fatigue: As above, monitor heart rates. Normal TSH. Negative COVID-19 PCR. Status: Acute (4) Transaminitis: Known history of fatty infiltration of the liver. This appears to be chronic. Monitor for now. No abdominal pain. History of cholecystectomy. Status: Acute Additional A&P Information Hx ischemic cardiomyopathy: With improvement in ejection fraction on last imaging up to 60%. LifeVest was discontinued. Currently EF is perhaps slightly worse, but still within normal range. Grade 1 diastolic dysfunction. Mild LVH. Smoking addiction: Discussed smoking cessation for 4 minutes. She says has been trying to quit. Failed Chantix twice. She is agreeable to nicotine patch and gum for cravings in the hospital. We have discussed various risks and organ systems that smoking can affect. She will continue trying to quit. Diabetes: For now continue insulin without increasing, does have glucose go into 200s, however, this morning was 72. Takes regular insulin at home. NPH here at lower starting dose. Consistent carbohydrate diet. Sliding scale insulin. HTN HLD NAFLD Other chronic comorbidities Attestations Medical Necessity Statement*: Continue optimization of treatment of coronary disease, assessment by cardiology, post catheterization care, with tentative discharge home tomorrow. Coding Level of Care Code Acute Food And Drug Research Scientist for Brooke Stephen Diagnoses Chest pain R07.9 Chest pain type: unspecified Tachycardia R00.0 Fatigue R53.83 Transaminitis R74.0
[2020-03-01] MEDS: sodium chloride 0.9% 1,000 ML 100 ML IV (18:43)
[2020-03-01] MEDS: insulin nph human 100 units/1 mL 80 UNIT SUBCUT (19:10)
[2020-03-01 20:19] LABS: Glucose Point of Care 324 mg/dL (70-110)
--- NOTE | 2020-03-01 21:01 | NMCV_ITS ---
NM kailey perf SPECT r/s* [id number] Aspen Lama Age: 49 Gender: F : 1970 Exam Date: 03/01/2020 06:58 Ordering Phys: Walter Hartley MD Technologist: ROCKY Benavides Exam Location: [facility] Indications: WEAK, ELEVATED HEART RATE STRESS TEST [facility] IMAGE PROTOCOL Rest/Stress 1 Lexiscan Day Radiopharmaceutical Dose (mCi) Administration Site Administered by Rest: Tc-99m 10.6 IV ROCKY Slaughter Sestamibi Stress:Tc-99m 33.0 IV ROCKY Slaughter Sestamibi Rest: 01-Mar-2020 60 Discovery 630 Stress: 01-Mar-2020 30 Discovery 630 0.4mg Lexiscan. Images obtained in supine and prone position. SPECT RESULTS Technical Quality: Excellent Raw Data Analysis: Breast attenuation, Soft tissue attenuation Image Corrections: No attenuation or motion correction applied Summed Stress Score: 22 Summed Rest Score: 16 Summed Difference Score: 8 PERFUSION FINDINGS Moderate area of severely decreases uptake was noted in the basal mid and apical anterior, basal and mid anterolateral, apical lateral, mid and apical inferior wall regions. Significant reversibility was noted in the mid and apical anterior, anterolateral and apical lateral regions. FUNCTIONAL RESULTS (calculated via Gated SPECT) Stress Image LV EF (%): 54 Stress EDV (mL):186 TID: 1.09 Stress ESV (mL):85 FUNCTIONAL FINDINGS: Segmental wall motion analysis revealing diffuse hypokinesia of the septum and the LV apex. IMPRESSIONS 1. Myocardial perfusion imaging revealing a moderate area of reversible defect in the anterior and anterolateral regions, suggestive of ischemia in the distribution of the left artery descending artery and circumflex artery. 2. Normal LV ejection fraction 54%. 3. Wall motion normalities as mentioned above. 4. Dilated LV cavity with an end-systolic volume of 85 mL. No similar previous studies are available for comparison Dr Marce Matthew MD [facility] (Electronically Signed) Final Date: 01 March 2020 10:08 S
--- NOTE | 2020-03-01 21:48 | PC.NURSE ---
TR Band removed at 2114. Site cleaned and covered with a tegaderm dressing. V/S within normal limits. No s/s of bleeding or hematoma noted. Continue care
[2020-03-02] VITALS (8 sets, daily range): BP systolic 104–138; BP diastolic 61–98; PULSE 67–94; RESP 10–17; TEMP 36.6–36.8; O2SAT 93–100
[2020-03-02] MEDS: heparin 5,000 unit/mL INJ 1 mL 5000 UNIT SUBCUT ×2 (01:14→09:34)
--- NOTE | 2020-03-02 02:35 | PC.NURSE ---
Patient continues to rest soundly in room. Right radial post cath site still dry and intact. No s/s of bleeding or hematoma. No s/s of distress or complaints noted. Call light is within reach. Continue care.
[2020-03-02 05:06] LABS: Anion Gap 12.6 (5-19); Blood Urea Nitrogen 13 mg/dL (6-20); Calcium 8.9 mg/dL (8.5-10.5); Carbon Dioxide 26 mmol/L (22-29); Chloride 102 mmol/L (98-107); Glomerular Filtration Rate 105.8 mL/min (90-130); Glucose 343 mg/dL (65-115); Osmolality Calculated 296 mOsm/kg (285-295); Potassium 4.6 mmol/L (3.5-5.1); Sodium 136 mmol/L (136-145)
[2020-03-02] MEDS: insulin nph human 100 units/1 mL 80 UNIT SUBCUT (06:07)
--- NOTE | 2020-03-02 06:17 | PC.NURSE ---
Patient resting in bed. Uneventful shift. No complaints of s/s of distress noted. Call light is within reach. Continue care.
[2020-03-02 06:19] LABS: Glucose Point of Care 275 mg/dL (70-110)
[2020-03-02] MEDS: atorvastatin 40 mg Tablet 80 MG PO (08:50)
[2020-03-02] MEDS: spironolactone 25 mg Tablet PO (08:50)
[2020-03-02] MEDS: pantoprazole DR 40 mg Tablet PO (08:50)
[2020-03-02] MEDS: pregabalin 150 mg Capsule PO (08:50)
[2020-03-02] MEDS: clopidogrel 75 mg Tablet PO (08:50)
[2020-03-02] MEDS: venlafaxine ER (24HR) 75 mg Capsule PO (08:50)
[2020-03-02] MEDS: aspirin 81 mg Chew Tablet PO (08:50)
[2020-03-02] MEDS: metoprolol succinate ER (24 HR) 25 mg Tablet PO (08:50)
[2020-03-02] MEDS: nicotine 14 mg Patch 1 PATCH TRANSDERMA (08:51)
--- NOTE | 2020-03-02 09:17 | PM.PN ---
Subjective Subjective: Interval history: Patient is feeling okay with no chest pain or unusual shortness of breath. No palpitation, dizziness or syncopal episodes. She underwent left heart catheterization yesterday. She was found to have high-grade lesion in his small second diagonal and of the left anterior descending artery. She also had a high-grade lesion in the distal LAD, around the LV apex. Based on the angiographic findings, it was decided to treat her medically. Medications: Reviewed: Yes Medication Review Details: Current Medications Acetaminophen (Tylenol) 650 mg PO Q4H PRN PRN Reason: MILD PAIN OR INCREASE TEMP Last Admin: 03/01/20 12:53 Dose: 650 mg Documented by: Al Hydrox/Mg Hydrox/Simethicone (Maalox) 30 ml PO Q15M PRN PRN Reason: INDIGESTION Albuterol Sulfate (Ventolin) 2 puff INHALATION Q6H PRN PRN Reason: Shortness Of Breath Alprazolam (Xanax) 0.25 mg PO TID PRN PRN Reason: ANXIETY Aspirin (Aspirin Chewable) 81 mg PO DAILY [facility] Last Admin: 03/02/20 08:50 Dose: 81 mg Documented by: Atorvastatin Calcium (Lipitor) 80 mg PO DAILY [facility] Last Admin: 03/02/20 08:50 Dose: 80 mg Documented by: Atropine Sulfate (Atropine) 0.5 mg IVP PRN PRN PRN Reason: Symptomatic bradycardia Clopidogrel Bisulfate (Plavix) 75 mg PO DAILY [facility] Last Admin: 03/02/20 08:50 Dose: 75 mg Documented by: Dextrose (D50w) 25 ml IVP ONCE PRN; Protocol PRN Reason: hypoglycemia protocol Dextrose (D50w) 50 ml IVP PRN PRN; Protocol PRN Reason: hypoglycemia protocol Docusate Sodium (Colace) 100 mg PO EVERY OTHER DAY [facility] Last Admin: 03/01/20 10:30 Dose: 100 mg Documented by: Ergocalciferol (Vitamin D2) 50,000 unit PO We [facility] Last Admin: 03/01/20 12:06 Dose: 50,000 unit Documented by: Estradiol (Estrace) 1 mg PO DAILY [facility] Last Admin: 03/01/20 10:28 Dose: 1 mg Documented by: Fentanyl (Sublimaze) 50 mcg IVP PRN PRN PRN Reason: Prior to sheath removal Glucagon (Glucagen) 1 mg IM ONCE PRN; Protocol PRN Reason: Adult Acute Hypoglycemia Prot. Heparin Sodium (Beef Lung) (Heparin) 5,000 unit SUBCUT Q8H [facility] Last Admin: 03/02/20 01:14 Dose: 5,000 unit Documented by: Dextrose (D5w) 500 mls @ 100 mls/hr IV ONCE PRN; Protocol PRN Reason: Adult Acute Hypoglycemia Prot Sodium Chloride (Sodium Chloride 0.9%) 1,000 mls @ 100 mls/hr IV .Q10H [facility] Last Admin: 03/02/20 03:19 Dose: Not Given Documented by: Insulin Aspart (Novolog) 0 unit SUBCUT WM&BEDTIME [facility]; Protocol Last Admin: 03/02/20 07:20 Dose: 12 unit Documented by: Insulin Human NPH (Novolin N) 80 unit SUBCUT BIDAC [facility] Last Admin: 03/02/20 06:07 Dose: 80 unit Documented by: Magnesium Hydroxide (Milk Of Magnesia) 30 ml PO DAILY PRN PRN Reason: CONSTIPATION Metoprolol Succinate (Toprol Xl) 25 mg PO DAILY [facility] Last Admin: 03/02/20 08:50 Dose: 25 mg Documented by: Naloxone HCl (Narcan) 0.1 mg IVP Q2M PRN PRN Reason: RESPIRATORY RATE < 8/MIN Nicotine (Nicoderm 14 Mg Patch) 1 patch TRANSDERMA DAILY [facility] Last Admin: 03/02/20 08:51 Dose: 1 patch Documented by: Nicotine Polacrilex (Nicorette) 2 mg BUCCAL Q2H PRN PRN Reason: WITHDRAWAL Nitroglycerin (Nitrostat) 0.4 mg SUBLINGUAL Q5M PRN PRN Reason: CHEST PAIN Non-Formulary Medication (Sacubitril-Valsartan [Entresto]) 0 tab PO BID [facility] Last Admin: 03/01/20 19:10 Dose: 1 tab Documented by: Ondansetron HCl (Zofran) 4 mg IVP Q2M PRN PRN Reason: NAUSEA Pantoprazole Sodium (Protonix) 40 mg PO DAILY [facility] Last Admin: 03/02/20 08:50 Dose: 40 mg Documented by: Pregabalin (Lyrica) 150 mg PO BID [facility] Last Admin: 03/02/20 08:50 Dose: 150 mg Documented by: Spironolactone (Aldactone) 25 mg PO DAILY [facility] Last Admin: 03/02/20 08:50 Dose: 25 mg Documented by: Temazepam (Restoril) 15 mg PO BEDTIME PRN PRN Reason: INSOMNIA Venlafaxine HCl (Effexor Xr) 75 mg PO DAILY [facility] Last Admin: 03/02/20 08:50 Dose: 75 mg Documented by: Vitals/I&O/Wt Last Vital Signs Temp 98.1 F 03/02/20 07:04 Pulse 94 03/02/20 07:04 Resp 16 03/02/20 07:04 BP 117/66 03/02/20 07:04 Pulse Ox 100 03/02/20 07:04 03/01/20 03/02/20 03/02/20 22:59 06:59 14:59 Intake Total 240 / 870 240 / 1110 Balance 240 / 870 240 / 1110 Weight last 48 hrs Weight 325 lb Physical Exam Narrative: EXAM NARRATIVE: GENERAL: The patient is alert and oriented times three. Not in any acute distress. Morbidly obese HEENT: No significant pallor, icterus or lymphadenopathy. The pupils are reactant to light. Oral cavity: There are no mucous membrane lesions. NECK: Trachea appears to be central. No masses noted. No JVD or thyromegaly appreciated. No carotid bruit. RESPIRATORY: Chest is symmetrical. No intercostals muscle retraction or any accessory muscle activation. There is no chest wall tenderness. Breath sounds are heard bilaterally. No rales or rhonchi heard. No evidence of any consolidation. BREASTS: Deferred. HEART: The PMI could not be palpated. No palpable precordial events. S1 and S2 are normal. No S3 or S4 heard. No pericardial rub or any click heard. ABDOMEN: No vessel pulsations or distention. No tenderness. No organomegaly appreciated. No abdominal bruit. Bowel sounds are normally heard. : Deferred. RECTAL: Deferred. LYMPHATIC: No lymphadenopathy noted in the neck or groin. EXTREMITIES: No edema or cyanosis. MUSCULOSKELETAL: No acute joint deformities or swelling SKIN: There are no significant scars or skin rash noted. NEUROPSYCHIATRIC: The patient is alert and oriented x3. Appears to be in a good mood. The higher functions are grossly within normal limits. No tremors or rigidity noted. Const: COMMON NORMALS: alert Resp: COMMON NORMALS: clear to auscultation bilaterally AUSCULTATION: clear to auscultation bilaterally Neuro: SENSORIUM/ORIENTATION: Yes alert Data : 03/01/20 04:35 03/02/20 03:45 A&P Assessment and plan (1) Atherosclerotic heart disease of [place] coronary artery with other forms of angina pectoris: The angiogram findings are discussed with the patient. Based on the findings, it was decided to treat her medically. I may start her on isosorbide mononitrate 30 mg p.o. daily. If she tolerates this medication, may be discharged home on the same. Other medications may be continued as the days. Status: Acute (2) Abnormal myocardial perfusion study: Angiogram findings as mentioned above. Status: Acute (3) Diabetes: Continue on the medications as it is. Aggressive blood sugar control is warranted. Also may consider starting her on Jardiance Status: Acute Qualifiers: Diabetes mellitus type: type 2 Diabetes mellitus long lines operator insulin use: with long lines operator use Diabetes mellitus complication status: without complication Qualified Code(s): E11.9 - Type 2 diabetes mellitus without complications; Z79.4 - snf (current) use of insulin (4) Dyslipidemia associated with type 2 diabetes mellitus: The current medications may be continued. Status: Acute (5) Ischemic cardiomyopathy: Patient's ejection fraction has significantly improved since her non-ST elevation myocardial infarction in July of this year. Status: Acute Additional A&P Information If the patient continues remain stable, may be discharged home today. Please make an appointment to seen by the nurse practitioner at [facility] next week. I may see her in the office in 3 weeks. May be discharged home on Jardiance 10 mg p.o. daily along with the isosorbide mononitrate 30 mg p.o. daily Attestations Medical Necessity Statement*: Possible discharge home today Coding Level of Care Code Acute Clinical Sociologist for Brooke Fwmere Diagnoses Atherosclerotic heart disease of [place] coronary artery with other forms of angina pectoris I25.118 Abnormal myocardial perfusion study R94.39 Diabetes E11.9; Z79.4 Diabetes mellitus type: type 2 Diabetes mellitus long lines operator insulin use: with long lines operator use Diabetes mellitus complication status: without complication Dyslipidemia associated with type 2 diabetes mellitus E11.69; E78.5 Ischemic cardiomyopathy I25.5
[2020-03-02] MEDS: estradiol 1 mg Tablet PO (09:32)
[2020-03-02] MEDS: isosorbide mononitrate ER 30 mg Tablet PO (09:39)
--- NOTE | 2020-03-02 10:48 | PM.DCS ---
Discharge Providers Date of Admission: 03/01/20 14:49 Date of Discharge: March 02, 2020 Attending Provider at Admission: Walter Hartley Attending Provider at Discharge: Walter Hartley Primary Care Provider: HAI Merlos Diagnoses at Discharge Discharge Diagnosis (1) Atherosclerotic heart disease of [place] coronary artery with other forms of angina pectoris: Status: Acute (2) Abnormal myocardial perfusion study: Status: Acute (3) Diabetes: Status: Acute Qualifiers: Diabetes mellitus complication status: without complication Diabetes mellitus prison insulin use: with marine oil terminal superintendent use Diabetes mellitus type: type 2 Qualified Code(s): E11.9 - Type 2 diabetes mellitus without complications; Z79.4 - remote computer terminal operator (current) use of insulin (4) Dyslipidemia associated with type 2 diabetes mellitus: Status: Acute (5) Ischemic cardiomyopathy: Status: Acute Reason for Visit Reason for Visit: WEAK, ELEVATED HR Hospital Course Hospital Course: Pleasant 49-year-old lady with history of coronary disease, with prior stenting to LAD, current smoker, with HTN, HLD, DM 2, obesity has been having on and off episodes of chest pain over the last several months, on presentation found to have sinus tachycardia, and reported prior to the bradycardia heart rates in the 40s noted by the school nurse. She was recently tested for COVID-19 about 3 days prior to admission found to be negative. At this time was by rapid antigen. Due to symptoms of fatigue, nausea, tachycardia was assessed again by PCR which was negative. While monitored on telemetry in the hospital had no episodes of tachycardia or bradycardia. Due to known coronary disease with episodes of recurrent chest pain with unremarkable troponin trend with minimal elevation up to 13, EKG with nonspecific changes was assessed also by TTE with finding of mild hypokinesia of basal and mid anteroseptal segments, EF 55%, grade 1 diastolic dysfunction. Due to history of coronary disease, recurrent chest pain, echocardiographic abnormalities was assessed by stress testing and due to abnormal finding subsequently by cardiology. Underwent assessment by coronary geography with finding of patent stent in LAD, and multifocal coronary disease including high-grade lesion in small second diagonal end of the left anterior descending artery. Also high-grade lesion in distal LAD around the LV apex. Recommendation is made for optimization of medical therapy. She was also started on Imdur. Jardiance is added. Please assist her with optimization of risk factors for progression of coronary disease. Please continue to assist her with quitting smoking. We have had an extensive discussion. She is at this time prescribed nicotine replacement. Please assist her with optimizing her additional other risk factors, help her with weight loss. Physical Exam Const: COMMON NORMALS: no acute distress and patient oriented x3 NUTRITIONAL APPEARANCE: obese OTHER: Today she is feeling very well. Denies any pain or pressure in her chest or elsewhere. No trouble breathing. She is in good spirits, ready to return home. HENMT: COMMON NORMALS: oropharynx normal Neck/C-Spine: COMMON NORMALS: no JVD Resp: COMMON NORMALS: normal respiratory effort and clear to auscultation bilaterally AUSCULTATION: clear to auscultation bilaterally Cardio: COMMON NORMALS: no JVD, regular rhythm, S1 normal heart sound present, S2 normal heart sound present and No murmurs present (Cardio) RHYTHM: regular rhythm HEART SOUNDS: S1 normal heart sound present and S2 normal heart sound present GI: COMMON NORMALS: Normal to inspection, nondistended, normoactive bowel sounds present, Soft to palpation and non-tender PALPATION: Yes Soft to palpation Extremity: COMMON NORMALS: no joint enlargement and no pedal edema Neuro: COMMON NORMALS: patient oriented x3 and moves all extremities Skin: COMMON NORMALS: no rashes or lesions noted GENERAL SKIN EXAM: no rashes or lesions noted Discharge Data Data Completed and Pending: Completed Studies During Hospitalization Category Date Time Status CT head wo con* 7 0450 Stat Cat Scan 02/28/20 10:12 Completed FIBROUS WALLBOARD INSPECTOR request for service Routin e Exams 03/01/20 16:10 Completed Sestamibi Stress Test Request Routi ne Exams 03/01/20 08:00 Completed XR chest 1V natali ble [id number] Stat Exams 02/28/20 09:59 Completed NM kailey perf SPECT r/s* [id number] Routin e Nuc Med 03/01/20 21:01 Completed CV echo complete* [id number] Routine Ultrasound 02/29/20 07:00 Completed Pending at discharge Category Date Time Status Basic Metabolic P nitesh AM LABS Lab 03/03/20 04:00 Ordered Basic Metabolic P nitesh AM LABS Lab 03/04/20 04:00 Ordered Labs from last 24 hours 03/02/20 03/02/20 03/01/20 06:00 03:45 19:44 Sodium 136 Potassium 4.6 Chloride 102 Carbon Dioxide 26 Anion Gap 12.6 BUN 13 Creatinine 0.6 GFR Calculation 105.8 Glucose 343 H POC Glucose 275 324 Calculated Osmolal ity 296 H Calcium 8.9 03/01/20 03/01/20 17:49 10:41 Sodium Potassium Chloride Carbon Dioxide Anion Gap BUN Creatinine GFR Calculation Glucose POC Glucose 126 164 Calculated Osmolal ity Calcium Vitals: Last Vital Signs Temp 98.1 F 03/02/20 07:04 Pulse 88 03/02/20 09:52 Resp 17 03/02/20 09:52 BP 117/66 03/02/20 07:04 Pulse Ox 96 03/02/20 09:52 Discharge Plan Discharge Patient Disposition: Home Condition: Stable Prescriptions: New nicotine 14 mg/24 hr Patch 24 Hour 1 patch transdermal DAILY Qty: 30 RF: 0 isosorbide mononitrate 30 mg Tablet Extended Release 24 Hr 30 mg PO DAILY Qty: 30 RF: 0 nicotine (polacrilex) 2 mg mini lozenge 2 mg MUCOUS MEM Q1H PRN (Reason: nicotine cravings) Qty: 81 RF: 0 Jardiance 10 mg tablet 10 mg PO DAILY Qty: 30 RF: 0 Continued estradiol 1 mg tablet 1 mg PO DAILY RF: 0 albuterol sulfate [Ventolin HFA] 90 mcg/actuation HFA aerosol inhaler 2 puff INHALATION Q6H PRN (Reason: Shortness Of Breath) RF: 0 pregabalin [Lyrica] 150 mg capsule 150 mg PO BID 30 Days Qty: 60 RF: 3 atorvastatin 80 mg tablet See Rx Instructions .ROUTE .COMPLEX Qty: 90 RF: 0 Humulin R U-500 (Conc) Insulin 500 unit/mL Solution See Rx Instructions .ROUTE .COMPLEX RF: 0 ergocalciferol (vitamin D2) 1,250 mcg (50,000 unit) capsule 1,250 mcg PO .COMPLEX RF: 0 Stool Softener 100 mg Capsule 100 mg PO EVERY OTHER DAY RF: 0 aspirin 81 mg Tablet,Chewable 81 mg PO DAILY RF: 0 venlafaxine 75 mg capsule,extended release 24hr 75 mg PO DAILY RF: 0 clopidogrel 75 mg tablet 75 mg PO DAILY RF: 0 spironolactone 25 mg tablet 25 mg PO DAILY RF: 0 pantoprazole 20 mg tablet,delayed release (DR/EC) 20 mg PO DAILY RF: 0 metoprolol succinate 25 mg tablet extended release 24 hr 25 mg PO DAILY RF: 0 Entresto 49-51 mg tablet See Rx Instructions .ROUTE .COMPLEX RF: 0 Discharge Orders: Discharge Order (Routine); Ordered 03/02/20 Ordered By: Walter Hartley Referrals: Marce Matthew MD [Physician] - (In 3 weeks.) Ralph Rothman FNP [Primary Care Provider] - 4-7 days Mimi Duggan FNP [Nurse Practitioner] - 1 week Discharge Diet: Cardiac and Diabetic Discharge Activity: Increase activity as tolerated Activity Restrictions/Additional Instructions: If you experience any persistent chest pain or pressure, any dizziness, any persistent fast or slow heart rate (persistently above 110, or below 40 bpm), please seek medical attention without delay. Avoid lifting more than 3 pounds for 2 days. Due to finding of coronary disease please continue to optimize risk factors including diabetes, cholesterol. Please make sure that you quit smoking as this is a very large contributor to progression of coronary disease puts you at risk of further very severe adverse events including heart attack, stroke, cancer, and a number of other comorbidities. Please continue with heart healthy, consistent carbohydrate diet. Include moderate exercise. Follow-up with your primary care doctor with regards to fatty liver infiltration. Discuss options for help with weight loss. Discharge Attestations Time Spent in Discharge Care*: greater than 30 min Quality Metrics Clinical Quality Measures During this hospital stay, did patient experience: None Coding Level of Care Code Acute Sugar Cane Farm Manager for Brooke Stephen Diagnoses Atherosclerotic heart disease of [place] coronary artery with other forms of angina pectoris I25.118 Abnormal myocardial perfusion study R94.39 Diabetes E11.9; Z79.4 Diabetes mellitus complication status: without complication Diabetes mellitus prison insulin use: with marine oil terminal superintendent use Diabetes mellitus type: type 2 Dyslipidemia associated with type 2 diabetes mellitus E11.69; E78.5 Ischemic cardiomyopathy I25.5
[2020-03-02 10:58] LABS: Glucose Point of Care 340 mg/dL (70-110)
[2020-03-02 10:58] LABS: Glucose Point of Care 265 mg/dL (70-110)
--- NOTE | 2020-03-02 11:30 | PC.NURSE ---
ACCUCHECK ERROR: 265 blood glucose is result from another patient. 340 is correct reading for patient. Additional 2 units of insulin were administered along with initial administration of 12 units for appropriate insulin coverage. Nurse to continue to monitor.
--- NOTE | 2020-03-02 13:46 | PC.NURSE ---
Discharge instructions given per the physician's orders. Patient verbalized understanding of information and did not have any further questions.
== END 2020-03-02 13:45 | disposition home or self-care (01) | DRG 287 ==
LOC: ER 09:54 → CSU 14:46
PROVIDERS: Family Medicine; Internal Medicine Cardiovascular Disease; Nurse Practitioner Family; Admitting Provider Internal Medicine; Family Provider Registered Nurse; PCP Registered Nurse; Visit Provider Internal Medicine
PROC: B2151ZZ Fluoroscopy of Left Heart using Low Osmolar Contrast (ICD-10-PCS; principal; 2020-03-01 16:00)
DX: I25.119 Atherosclerotic heart disease of native coronary artery with unspecified angina pectoris (principal); Z68.42 Body mass index [BMI] 45.0-49.9, adult; Z95.811 Presence of heart assist device; Z95.5 Presence of coronary angioplasty implant and graft; F17.210 Nicotine dependence, cigarettes, uncomplicated; I10 Essential (primary) hypertension; E11.9 Type 2 diabetes mellitus without complications; E78.5 Hyperlipidemia, unspecified; E78.00 Pure hypercholesterolemia, unspecified; I25.5 Ischemic cardiomyopathy; E66.01 Morbid (severe) obesity due to excess calories; I25.2 Old myocardial infarction; K76.0 Fatty (change of) liver, not elsewhere classified; R53.83 Other fatigue; Z79.4 Long term (current) use of insulin; Z79.890 Hormone replacement therapy; Z79.51 Long term (current) use of inhaled steroids; Z79.82 Long term (current) use of aspirin; Z79.02 Long term (current) use of antithrombotics/antiplatelets
CPT/HCPCS: 12345; 36415; 36416; 70450; 71045; 78452; 80048; 80053; 82962; 83735; 83880; 84443; 84484; 85025; 85378; 85610; 85730; 87635; 90471; 90732; 93005; 93017; 93306; 93452; 96372; 96374; 96375; 99284; 99285; A9500; C1769; C1887; C1894; G0378; J1644; J1815; J2250; J2405; J2785; J2930; J3010; J3490; J7030; J7040; J8499; Q0163; Q9967

== ENCOUNTER → 2020-03-16 14:00 | Outpatient (BNVA) | payer BC, SELFPAY | PROVIDERS: Family Provider Registered Nurse; PCP Registered Nurse; Visit Provider Nurse Practitioner Family | DX: I25.118 Atherosclerotic heart disease of native coronary artery with other forms of angina pectoris (principal) | CPT/HCPCS: 80048 ==

== ENCOUNTER → 2020-05-24 16:31 | Outpatient (BNVA) | payer BC, SELFPAY | PROVIDERS: Family Provider Registered Nurse; PCP Registered Nurse; Visit Provider Registered Nurse | DX: E11.9 Type 2 diabetes mellitus without complications (principal) | CPT/HCPCS: 80053; 83036; 85025 ==

== ENCOUNTER 2020-06-13 14:45 | Outpatient (CLI) | payer BC, SELFPAY ==
--- NOTE | 2020-06-13 15:45 | USCV_ITS ---
Aspen Lama Age: 50 Gender: F : 1970 Exam Date: 06/13/2020 15:00 Ordering Phys: Ralph Rothman BLOCKER [employer]IC Technologist: Praveena Chambers Exam Location: [facility] [place] Indication: SYNCOPE Risk Factors: Previous Vascular Surgery: Right Brachial BP: / Left Brachial BP: / Right Left Velocity (cm/s) Spectral Plaque Velocity (cm/s) Spectral Plaque Syst/Diast Broadening Syst/Diast Broadening 96.30/ 18.60 Prox CCA 95.90 / 31.40 88.60/ 25.60 Mid CCA 79.00 / 24.20 82.10/ 24.20 Distal CCA 76.60 / 27.40 54.00/ 22.60 Prox ICA 51.40 / 19.40 51.60/ 23.40 Mid ICA 70.90 / 33.30 71.80/ 30.60 Distal ICA 72.70 / 37.10 100.80 ECA 83.00 0.74 ICA/CCA 0.76 Antegrade Vertebral Antegrade 37.90/ 12.10 cm/s 44.40/ 19.70 cm/s Tri Subclavian Tri 72.60 135.2 0 FINDINGS Minimal plaques at the bifurcations bilaterally Normal Doppler flow velocities and Doppler waveforms Antegrade flow in the vertebral arteries bilaterally Normal Doppler waveforms in the subclavian artery bilaterally CONCLUSIONS Minimal plaques of the bifurcations bilaterally. No significant stenosis in the above-mentioned arteries, based on these findings Dr Marce Matthew MD [facility] (Electronically Signed) Final Date: 14 June 2020 13:51 S
== END 2020-06-13 14:46 | disposition home or self-care (01) ==
LOC: US 14:47
PROVIDERS: PCP Registered Nurse; Visit Provider Registered Nurse
DX: R55 Syncope and collapse (principal)
CPT/HCPCS: 93880

== ENCOUNTER → 2020-12-21 14:00 | Outpatient (BNVA) | payer BC, SELFPAY | PROVIDERS: PCP Registered Nurse; Visit Provider Registered Nurse | DX: R30.0 Dysuria (principal) | CPT/HCPCS: 81000 ==

== ENCOUNTER 2021-01-02 07:09 | Outpatient (CLI) | payer BC, SELFPAY ==
[2021-01-02 07:32] VITALS: BMI 45.1
--- NOTE | 2021-01-02 07:35 | ECG_ITS ---
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 Interpretive Statements NAME OF STUDY: LEXISCAN SESTAMIBI STRESS TEST INDICATION: Shortness of Breath, PROCEDURE: At the baseline, the EKG revealed normal sinus rhythm with a poor R wave progression. Nonspecific T wave changes. Possible old septal NM. The baseline blood pressure was 99/73 mm Hg with a heart rate of 78 beats/min. Lexiscan was infused over a period of 20 seconds. A total of 0.4 milligrams of Lexiscan was infused. The stress phase was continued for a total of 5 minutes. Heart rate at the end of the stress phase was 103 with a blood pressure 79/56. The EKG at the peak infusion revealed no significant changes. Sestamibi was injected 20 seconds after the Lexiscan infusion. Blood pressure at the end of the recovery phase was 84/56 with a heart rate of 100 per minute. CONCLUSION: 1. No significant EKG changes with the LexiScan infusion 2. No LexiScan induced chest pain or cardiac arrhythmia 3. Normal blood pressure and heart rate response 4. Sestamibi/sestamibi perfusion scan pending; see separate report. Electronically Signed On 01-05-2021 16:11:22 CDT by Marce Matthew M.D. [id number]
--- NOTE | 2021-01-02 07:35 | NMCV_ITS ---
NM kailey perf SPECT r/s* [id number] Aspen Lama Age: 50 Gender: F : 1970 Exam Date: 01/02/2021 07:35 Ordering Phys: Marce Matthew MD ([email or web address]) Technologist: ROCKY Benavides Exam Location: [facility] Indications: SHORTNESS OF BREATH STRESS TEST Please see separate stress test report in [facility] for full findings IMAGE PROTOCOL Rest/Stress 1 Lexiscan Day Radiopharmaceutical Dose (mCi) Administration Site Administered by Rest: Tc-99m 10.7 IV ROCKY Slaughter Sestamibi Stress:Tc-99m 33.0 IV ROCKY Benavides Sestamichad Rest: 02-Jan-2021 60 Discovery 630 Stress: 02-Jan-2021 30 Discovery 630 0.4mg Lexiscan. Images obtained in supine and prone position. SPECT RESULTS Technical Quality: Excellent Raw Data Analysis: Breast attenuation Image Corrections: No attenuation or motion correction applied Summed Stress Score: 10 Summed Rest Score: 15 Summed Difference Score: 1 PERFUSION FINDINGS Small to moderate aortic restenosis because noted in the basal mid and apical anterior, mid and apical inferior and apical segments. Some reversibility was noted in the anterior wall region FUNCTIONAL RESULTS (calculated via Gated SPECT) Stress Image LV EF (%): 53 Stress EDV (mL):135 TID: 1.13 Stress ESV (mL):64 FUNCTIONAL FINDINGS: Segmental wall motion analysis revealed moderate diffuse hypokinesia of the septum and mild hypokinesis inferior wall regions IMPRESSIONS 1. Myocardial perfusion imaging revealing small to moderate area of decreased tracer uptake in the inferior wall and inferior wall regions, with some reversibility in the anterior region suggestive of myocardial scarring in the distribution of the left anterior descending artery and and right coronary artery with a small area of possible yoana-infarction ischemia in the LAD territory. 2. Normal LV ejection fraction 53%. 3. LV wall motion analysis revealing moderate diffuse hypokinesia of the septum and mild diffuse hypokinesia of the inferior wall regions. 4. Mildly dilated LV cavity with an end-systolic volume of 64 ml. Compared to the study from 07/29/2019, there is improvement of the LV ejection fraction and the area of ischemia appears to have significantly reduced. Dr Marce Matthew MD [facility] (Electronically Signed) Final Date: 02 January 2021 19:02 S
[2021-01-02] MEDS: regadenoson 0.4 Mg/5 ml Syringe IVP (09:50)
[2021-01-02 09:57] VITALS: BP 84/56; PULSE 100
== END 2021-01-02 07:10 | disposition home or self-care (01) ==
LOC: CDL 07:12
PROVIDERS: PCP Registered Nurse; Visit Provider Internal Medicine Cardiovascular Disease
DX: R06.02 Shortness of breath (principal); R07.9 Chest pain, unspecified; I25.10 Atherosclerotic heart disease of native coronary artery without angina pectoris
CPT/HCPCS: 78452; 93017; A9500; J2785

== ENCOUNTER → 2021-07-26 15:38 | Outpatient (BNVA) | payer BC, SELFPAY | PROVIDERS: PCP Registered Nurse; Visit Provider Registered Nurse | DX: I10 Essential (primary) hypertension (principal); E11.65 Type 2 diabetes mellitus with hyperglycemia; E03.9 Hypothyroidism, unspecified; E78.5 Hyperlipidemia, unspecified | CPT/HCPCS: 80053; 80061; 83036; 84443; 85025 ==

== ENCOUNTER 2021-10-13 09:11 | Outpatient (CLI) | payer BC, SELFPAY ==
--- NOTE | 2021-10-13 09:30 | MR_ITS ---
WS: [id number] MRI LUMBAR SPINE NONCONTRAST HISTORY: M54.40 - Lumbago with sciatica, unspecified side COMPARISON: None available. TECHNIQUE: Sagittal and axial multisequence imaging is submitted. 6 lumbar type vertebral bodies. The 6th lumbar type vertebral body will be labeled lumbarized S1. Mil d anterior wedging of T11. Posterior lumbar alignment is normal. Very mild disc desiccation at L4-5 without narrowing of the dis c space. The remaining discs are well preserved. No fracture or marrow edema. Conus terminates normally at L1-2 disc level. L1-L2: Normal. L2-L3: Normal. L3-L4: Mild ligamentum flavum and facet hypertrophy. Very mild encroachment into the LEFT foramina. O nly mild stenosis. L4-L5: Mild disc bulging with small LEFT foraminal disc protrusion. Mild ligamentum flavum hypertroph y and facet arthritis. Very mild foraminal narrowing. No nerve root encroachment. L5-S1: Mild annular disc bulging with mild ligamentum flavum and facet arthritis. Small osteophytes e ncroach upon the RIGHT S1 nerve root in the subarticular recess. There is also very shallow LEFT fora muna disc protrusion. S1-S2: Rudimentary disc is normal with mild asymmetric bulging to the LEFT and small annular fissure. Paravertebral soft tissues are normal. MR/MR lumbar spine wo con* [id number] IMPRESSION: 1. 5 lumbar type vertebral bodies. The 6 lumbar type vertebral body will be la beled lies lumbarized S1. 2. Small LEFT foraminal disc protrusion at L4-5 with only mild LEFT foraminal narrowing. 3. Osteophytes encroach upon the RIGHT S1 nerve root from the facet in the LEF T subarticular recess of L5-S1. 4. Mild LEFT foraminal stenosis at L3-4. 5. Very shallow LEFT foraminal disc protrusion at L5-S1.
== END 2021-10-13 09:12 | disposition home or self-care (01) ==
PROVIDERS: PCP Registered Nurse; Visit Provider Registered Nurse
DX: M54.40 Lumbago with sciatica, unspecified side (principal); M51.26 Other intervertebral disc displacement, lumbar region; M25.78 Osteophyte, vertebrae; M48.061 Spinal stenosis, lumbar region without neurogenic claudication; M51.27 Other intervertebral disc displacement, lumbosacral region
CPT/HCPCS: 72148

== ENCOUNTER → 2021-11-20 08:13 | Outpatient (BNVA) | payer BC, SELFPAY | PROVIDERS: PCP Registered Nurse; Visit Provider Registered Nurse | DX: E11.9 Type 2 diabetes mellitus without complications (principal) | CPT/HCPCS: 83036 ==

== ENCOUNTER 2022-03-08 11:19 | Outpatient (CLI) | payer OTHER, SELFPAY ==
--- NOTE | 2022-03-08 11:15 | USCV_ITS ---
Aspen Lama Age: 51 Gender: F : 1970 Exam Date: 03/08/2022 11:32 Ordering Phys: Marce Matthew MD ([email or web address]) Technologist: Kesha Garcia Exam Location: [facility] [place] Indication: ASHD BP: / HR: 81 Rhythm: Sinus Technical Quality: Adequate MEASUREMENTS (Male / Female) Normal Values 2D ECHO LV Diastolic Diameter PLAX 5.5 cm 4.2 - 5.9 / 3.9 - 5.3 cm LV Systolic Diameter PLAX 3.1 cm IVS Diastolic Thickness 1.4 cm 0.6 - 1.0 / 0.6 - 0.9 cm IVS Systolic Thickness 1.5 cm LVPW Diastolic Thickness 1.8 cm 0.6 - 1.0 / 0.6 - 0.9 cm LVPW Systolic Thickness 1.9 cm LVOT Diameter 2.3 cm LV Ejection Fraction 2D Teich 74.1 % LV Ejection Fraction MOD 2C 65.9 % LV Ejection Fraction 2C AL 67.4 % LA Diameter 4.3 cm LA Width 4.2 cm LA Height 4.8 cm RA Width 2.9 cm RA Height 4.2 cm Aorta at Sinotubular Diameter 3.0 cm M-MODE MV E Point Septal Separation 1.3 cm DOPPLER AV Peak Velocity 128.0 cm/s LVOT Peak Velocity 72.0 cm/s AV Area Cont Eq vti 2.2 cm squared AV Area Cont Eq pk 2.3 cm squared MV Peak Velocity 103.0 cm/s MV Area PHT 3.3 cm squared Mitral E to A Ratio 0.8 MV E' Velocity 43.0 cm/s Mitral E to MV E' Ratio 7.9 Mitral E to LV E' Lateral Ratio 6.3 Mitral E to LV E' Septal Ratio 10.7 TR Peak Velocity 127.7 cm/s TR Peak Gradient 6.5 mmHg Right Atrial Pressure 3.0 mmHg Pulmonary Artery Systolic Pressu 9.5 mmHg PV Peak Velocity 68.0 cm/s RV Acceleration Time 0.1 s RV Ejection Time 0.3 s RV AcT/ET 0.4 FINDINGS Left Ventricle Normal left ventricular size and systolic function, EF 63 %. Mild left ventricular hypertrophy. No regional wall motion abnormalities. Right Ventricle The right ventricle is normal in size and function. Right Atrium The right atrium is normal in size. Left Atrium Mildly increased left atrial size. Mitral Valve No gross abnormalities noted Aortic Valve No gross abnormalities noted Tricuspid Valve No gross abnormalities noted Pulmonic Valve Pulmonic valve not well visualized. Pericardium Normal pericardium without effusion. Aorta Normal ascending aorta dimension. IVC Inferior vena cava not visualized. CONCLUSIONS Normal left ventricular size and systolic function, EF 63 %. Mild left ventricular hypertrophy. No regional wall motion abnormalities. Mildly increased left atrial size. No significant valvular abnormalities. There is no pericardial effusion. Technically difficult study because of the poor ultrasonic window Dr Marce Matthew MD [facility] (Electronically Signed) Final Date: 08 March 2022 14:33 S
== END 2022-03-08 11:20 | disposition home or self-care (01) ==
PROVIDERS: PCP Registered Nurse; Visit Provider Internal Medicine Cardiovascular Disease
DX: I25.118 Atherosclerotic heart disease of native coronary artery with other forms of angina pectoris (principal); R06.00 Dyspnea, unspecified; I51.7 Cardiomegaly
CPT/HCPCS: 93306

== ENCOUNTER → 2022-03-25 10:20 | Outpatient (BNVA) | payer OTHER, SELFPAY | PROVIDERS: PCP Registered Nurse; Referring Provider Registered Nurse; Visit Provider Podiatrist Foot & Ankle Surgery | DX: M92.61 Juvenile osteochondrosis of tarsus, right ankle (principal); M76.61 Achilles tendinitis, right leg; M77.31 Calcaneal spur, right foot | CPT/HCPCS: 73620; 73630 ==

== ENCOUNTER → 2022-05-06 16:46 | Outpatient (BNVA) | payer OTHER, SELFPAY | PROVIDERS: PCP Registered Nurse; Visit Provider Registered Nurse | DX: E11.9 Type 2 diabetes mellitus without complications (principal); W10.8XXA Fall (on) (from) other stairs and steps, initial encounter; M79.605 Pain in left leg | CPT/HCPCS: 80053; 83036 ==

== ENCOUNTER 2022-05-07 10:58 | Outpatient (CLI) | payer OTHER, SELFPAY ==
--- NOTE | 2022-05-07 11:20 | XR_ITS ---
WS: [id number] Right leg including the tibia and fibula, AP and lateral views, 05/07/2022 Clinical Data: W10.8XXA - Fall (on) (from) other stairs and steps, initi... Comparison: None. Findings: No fractures or dislocations are seen. The tibia and fibula are intact. The soft tissues are normal. XR/XR tibia fibula RT 2V [id number] Impression: Negative right leg.
== END 2022-05-07 10:59 | disposition home or self-care (01) ==
PROVIDERS: PCP Registered Nurse; Visit Provider Registered Nurse
DX: W10.8XXA Fall (on) (from) other stairs and steps, initial encounter; M79.604 Pain in right leg
CPT/HCPCS: 73590

== ENCOUNTER → 2022-08-21 15:13 | Outpatient (BNVA) | payer OTHER, SELFPAY | PROVIDERS: PCP Registered Nurse; Referring Provider Registered Nurse; Visit Provider Specialist | DX: M65.341 Trigger finger, right ring finger (principal); G56.01 Carpal tunnel syndrome, right upper limb | CPT/HCPCS: 73130 ==

== ENCOUNTER 2022-11-13 10:37 | Outpatient (CLI) | payer OTHER, SELFPAY | END 2022-11-13 10:38 | disposition home or self-care (01) | PROVIDERS: PCP Registered Nurse; Visit Provider Specialist | DX: G56.01 Carpal tunnel syndrome, right upper limb (principal); Z79.899 Other long term (current) drug therapy | CPT/HCPCS: 36415; 80053; 85025 ==

== ENCOUNTER 2022-11-13 15:25 | Outpatient (CLI) | payer OTHER, SELFPAY | END 2022-11-13 15:26 | disposition home or self-care (01) | LOC: SPT 15:25 | PROVIDERS: PCP Registered Nurse; Visit Provider Specialist | DX: Z46.89 Encounter for fitting and adjustment of other specified devices (principal); G56.01 Carpal tunnel syndrome, right upper limb; M65.341 Trigger finger, right ring finger | CPT/HCPCS: 97760; L3908 ==

== ENCOUNTER → 2022-11-27 12:44 | Outpatient (BNVA) | payer OTHER, SELFPAY | PROVIDERS: PCP Registered Nurse; Visit Provider Internal Medicine Cardiovascular Disease | DX: R07.9 Chest pain, unspecified (principal) | CPT/HCPCS: 93005 ==

== ENCOUNTER 2022-12-06 05:45 | Day surgery (SDC) | payer OTHER, SELFPAY ==
[2022-12-05 10:58] VITALS: BMI 44.3
[2022-12-06 06:14] VITALS: BP 121/72; PULSE 74; RESP 18; TEMP 36.6; O2SAT 95
[2022-12-06] MEDS: CELEcoxib 200 mg Capsule 400 MG PO (06:22)
[2022-12-06] MEDS: acetaminophen 1,000 MG/100 ML PIGGYBACK 400 MG IV (06:23)
[2022-12-06] MEDS: gabapentin 300 mg Capsule PO (06:23)
[2022-12-06] MEDS: sodium chloride 0.9% 1,000 ML 30 ML IV (06:24)
[2022-12-06 06:29] LABS: Glucose Point of Care 138 mg/dL (70-110)
--- NOTE | 2022-12-06 06:32 | ANES.PREANE2 ---
Pre-Anesthetic Assessment Height/Weight: Height 1.75 m Weight 136.078 kg Temp Pulse Resp BP Pulse Ox O2 Del Method 97.8 F 74 18 121/72 95 Room Air 12/06/22 06:14 12/06/22 06:14 12/06/22 06:14 12/06/22 06:14 12/06/22 06:14 12/06/22 06:14 Operation Date: 12/06/22 07:00 Proposed Procedures p RIGHT CARPAL TUNNEL SYNDROME WITH RIGHT RING FINGER TRIGGER RELEASE [id number],G56.00 M65.30(Right) - Cristina Leiva MD s Trigger Finger Release(Right) - Cristina Leiva MD Familial anesthetic complications: None Was Beta Loyd taken within 24 hours: N/A Was Clonidine taken within 24 hours: N/A Last intake: Intake Last Liquid Date 12/05/22 Last Liquid Time 22:00 Last Solid Date 12/05/22 Last Solid Time 18:30 Social Tobacco and No alcohol Exam alert, oriented x 3, clear to auscultation bilaterally and regular rate & rhythm Airway Mallampati: Class II Dentition: full Pulmonary Sleep Apnea CV/HEM Coronary Artery Disease and Hypertension Hepatic fatty liver GI Gastroesophageal Reflux Disease Metabolic Morbid Obesity Anesthetic Plan ASA status: 3 Anesthesia: General Risk of > 500 ml blood loss (7ml/kg in children): No Medications/Allergies Home Medications Medication Instructions Recorded Confirmed Last Taken Type CPAP supplies #1 ea 03/20/22 11/28/22 Unknown Rx CPAP machine #1 ea 03/21/22 11/28/22 Unknown Rx metoprolol tartrate 25 mg tablet 25 mg PO BID #180 tabs 05/06/22 12/05/22 12/05/22 Rx sacubitril 49 mg-valsartan 51 mg 1 tab PO DIRECTED #90 tabs 05/06/22 12/05/22 12/05/22 Rx tablet (Entresto) CPAP with supplies #1 ea 05/07/22 11/28/22 Unknown Rx empagliflozin 25 mg tablet 25 mg PO DAILY #90 tabs 05/28/22 12/05/22 12/05/22 Rx isosorbide mononitrate 30 mg 30 mg PO DAILY #90 tabs 05/28/22 12/05/22 12/05/22 Rx tablet,extended release 24 hr insulin regular hum U-500 conc 500 See Rx Instructions .Route .COMPLEX 07/26/22 12/05/22 12/05/22 History unit/mL subcutaneous soln (Humulin R U-500 (Concentrated) Insulin) tirzepatide 5 mg/0.5 mL 5 mg SUBCUT .weekly 07/26/22 12/05/22 11/19/22 History subcutaneous pen injector (Mounmaryro) triamcinolone acetonide 0.5 % 1 applic topical DAILY PRN atopic 07/26/22 12/05/22 Unknown Rx topical cream dermatitis 30 days #15 grams fluticasone propionate 50 2 spray intranasal DAILY #16 grams 08/15/22 12/05/22 12/05/22 Rx mcg/actuation nasal spray,suspension pregabalin 150 mg capsule (Lyrica) 150 mg PO BID 30 days #60 caps 08/23/22 12/05/22 12/05/22 Rx COCK UP SPLINT. #1 ea 11/13/22 11/28/22 Unknown Rx budesonide-formoterol HFA 160 2 puff inhalation BID 11/28/22 12/05/22 12/05/22 History mcg-4.5 mcg/actuation aerosol inhaler (Symbicort) atorvastatin 80 mg tablet 80 mg PO DAILY 12/05/22 12/05/22 12/05/22 History clopidogrel 75 mg tablet 75 mg PO DAILY 12/05/22 12/05/22 11/28/22 History montelukast 10 mg tablet 10 mg PO DAILY 12/05/22 12/05/22 12/05/22 History pantoprazole 20 mg tablet,delayed 20 mg PO DAILY 12/05/22 12/05/22 12/06/22 History release spironolactone 25 mg tablet 25 mg PO DAILY 12/05/22 12/05/22 12/05/22 History venlafaxine 75 mg capsule,extended 75 mg PO DAILY 12/05/22 12/05/22 12/05/22 History release 24 hr Allergies Allergy/AdvReac Type Severity Reaction Status Date / Time adhesive tape Allergy Intermediate ALGY-Rash Verified 12/05/22 10:51 cephalexin [From Keflex] Allergy ADR-Itching Verified 12/05/22 10:51 Iodinated Contrast Media Allergy ADR-Cough Verified 12/05/22 10:51 Penicillins Allergy ADR-Itching Verified 12/05/22 10:51 Current Medications Generic Name Dose Route Start Last Admin Trade Name Justin PRN Reason Stop Dose Admin Sodium Chloride 1,000 mls @ 30 mls/hr 12/06/22 06:00 12/06/22 06:24 Sodium Chloride 0.9% IV 12/07/22 05:59 30 mls/hr .Q24H RUSSELL Administration PFSH Anesthesia Medical History Abnormal myocardial perfusion study Acid reflux Atherosclerotic heart disease of [place] coronary artery with unstable angina pectoris Benign essential hypertension with target blood pressure below 140/90 Cigarette smoker two packs a day or less Diabetes Dyslipidemia associated with type 2 diabetes mellitus Hypercholesterolemia Ischemic cardiomyopathy Morbid obesity with BMI of 45.0-49.9, adult Non-ST elevation MT (NSTEMI) Nonalcoholic fatty liver disease Type 2 diabetes mellitus Vasovagal episode Surgical History H/O heart artery stent (~07/2019) Jerrell placed stent-- Vipul is her cleaner furniture History of 1995 2001 History of cholecystectomy Hx of hysterectomy (~2008) abdominal-- MEMO, BSO for bleeding--- Wood Hx of toe surgery Family History Father Diabetes Heart disease Hypertension Hypercholesteremia CAD (coronary artery disease) Family/Other Ovarian cancer Maternal great grandmother-- dx age 70's Mother Hypertension Brother Hypertension Diabetes Sister Hypertension Diabetes Grandfather CAD (coronary artery disease) Grandmother Cancer Dementia Denies family history of Colon cancer Clotting disorder Chronic kidney disease (CKD) Breast cancer Suicide Anesthesia complication Bleeding disorder Lung disease Uterine cancer Thyroid disease Stroke Social History Smoking and tobacco status: current every day smoker cigarettes Packs smoked per day: 0.5 Years cigarettes smoked: 35 Alcohol intake: never Substance/Drug Use: never Adopted: No Caregiver/support person: No Lives independently: No service: No Current occupational status: employed Sexually active: Yes Do you think of yourself as: Straight/Heterosexual Current gender identity: Female Special socorro needs: No Data Anesthesia Cardiac Studies: Echocardiogram 03/08/22 Echocardiogram Ultrasound 02/29/20 Sestamibi Stress Test (Cardiology) 01/02/21 Cardiac Event Monitor 01/25/21
--- NOTE | 2022-12-06 06:53 | P.HPUD_ITS ---
Surgery/Procedure H&P Update DATE OF PROCEDURE: December 06, 2022 DATE H&P PERFORMED: 11/28/22 H&P UPDATE INFORMATION: I have reviewed H&P completed within last 30 days, I have examined patient prior to procedure, No changes to prior documentation and H&P is in [facility] EMR on date indicated PLANNED PROCEDURE: Operation Date: 12/06/22 07:00 Proposed Procedures p RIGHT CARPAL TUNNEL SYNDROME WITH RIGHT RING FINGER TRIGGER RELEASE [id number],G56.00 M65.30(Right) - Cristina Leiva MD s Trigger Finger Release(Right) - Cristina Leiva MD Related Problem List Diagnoses (1) Carpal tunnel syndrome on right: (2) Trigger finger, right ring finger:
[2022-12-06] MEDS: clindamycin 600 MG/50 ML PREMIX 100 MG IV (06:57)
[2022-12-06 08:11] VITALS: BP 108/72; PULSE 70; RESP 18; TEMP 36.1; O2SAT 97
--- NOTE | 2022-12-06 08:12 | PM.OP ---
Operative Report Date of procedure: December 06, 2022 Pre-op diagnosis: Right carpal tunnel syndrome and right ring finger triggering Post-op diagnosis: Right carpal tunnel syndrome and right ring finger triggering Post-op findings: Significant compression across the carpal canal with discoloration and hourglass shape to the median nerve, fluid surrounding the tendons of the right ring finger and significant thickening of the A1 andres Procedure done: Right carpal tunnel release with release of right ring finger triggering Implants: None Pathology: none sent Surgeon: Cristina Leiva Computer Technologist: None Anesthesia: General (Per LMA, ASA 3) Estimated blood loss (mL): 1 Tourniquet time (min): 35 (At 250 mmHg) IV fluids (mL): 500 Urine output (mL): 0 (No Braun) Complications: None Findings: See postoperative findings Condition: stable Disposition: PACU (Then return to same-day surgery for discharge to home) Brief History: This is a 52-year-old woman who presented to my office with complaints of triggering of the right long finger as well as numbness and tingling in the right hand. Due to this issue, the patient was sent for nerve conduction study which demonstrated findings of moderately severe entrapment of the right median nerve at the wrist. The patient was advised that she had moderately severe carpal tunnel syndrome, and she also noted that she had significant triggering of the right ring finger. The patient wished to proceed with trigger finger release along with right carpal tunnel release. Risks and complications of both were discussed with her. Consents were signed and questions were answered at the time of her office visit. Procedure: The patient was brought to the operating theater and transferred to the operating room table. The patient had a general anesthesia per LMA, ASA 3. Secondary to Ancef allergy, the patient was administered clindamycin preoperatively as a prophylactic antibiotic which was well-tolerated. The arm was then prepped and draped with DuraPrep in usual fashion with the arm draped free. A tourniquet was placed high on the arm, the arm was exsanguinated, and the tourniquet was elevated to 250 mmHg for a total tourniquet time of 35 minutes. A surgical pause was performed. At the time, the surgical pause, we confirmed the site and side of surgery. We also confirmed the patient's identity, appropriate and timely administration of preoperative antibiotics and preoperative surgical markings. An incision was then made along the thenar crease. The incision crossed the wrist joint in a curvilinear fashion. Dissection continued through skin and soft tissues using a scalpel. The palmaris longus was identified along with the transverse carpal ligament. Each of these was released carefully to avoid injury to the median nerve. We were able to dissect gently into the carpal canal which was noted to be quite tight with significant compression across the median nerve. The nerve was visualized and was an hourglass shape. The canal was subsequently palpated to assure there was no bony encroachment upon the canal. There was a quite thickened fibrous tissue within the canal, and this was opened longitudinally as well. The canal was then palpated distally and proximally to assure that my small finger passed easily without impingement. Finding this to be so, attention was directed to closure. The wound was irrigated with ropivacaine plain, and then the same was injected into the subcutaneous tissues. It was then closed with 3-0 nylon in an interrupted mattress fashion. An incision was then made along the distal palmar crease beneath the ring finger. Dissection continued through the skin to the subcutaneous tissues using a scalpel. Blunt dissection was then utilized to spread soft tissues and allow access to the A1 andres. It was then incised longitudinally and sharply using a knife. This was accomplished without difficulty and atraumatically. Once the A1 andres was released, tendons were brought up out of the wound and evaluated. There were no gross masses on the tendons. Tendons were returned to normal position. We then irrigated the wound and subsequently closed it with 3-0 nylon with an interrupted mattress type suture. Following closure of the wound, the wound was injected with ropivacaine plain into the subcutaneous tissues as a local anesthetic. Sterile dressing was then placed consisting of OpSite to each wound, fluffed fluffs, sterile soft roll, and an Luis wrap. The tourniquet was released after 35 minutes. There were no complications. There were no specimens. The procedure was well tolerated. Plan is the patient will be discharged home. Related Problem List Diagnoses (1) Carpal tunnel syndrome on right: (2) Trigger finger, right ring finger:
[2022-12-06 08:15] VITALS: BP 94/61; PULSE 68; RESP 15; O2SAT 96
[2022-12-06 08:20] VITALS: BP 101/71; PULSE 72; RESP 16; O2SAT 96
[2022-12-06 08:39] VITALS: BP 100/63; PULSE 75; RESP 17; TEMP 36.1; O2SAT 95
[2022-12-06 09:00] VITALS: BP 115/72; PULSE 72; RESP 18; TEMP 36.1; O2SAT 96
--- NOTE | 2022-12-06 09:00 | ANE.PACU2 ---
Inpatient post-anesthesia follow up: Airway intact: Yes Vital signs: Temperature 97 F Pulse Rate 72 Respiratory Rate 18 Blood Pressure 115/72 Pulse Oximetry 96 Oxygen Delivery Me thod Room Air Oxygen Flow Rate 6 Fraction of Inspir ed Oxygen Hydration adequate: Yes Nausea and vomiting: Yes Pain level: 1 Mental status: Baseline
== END 2022-12-06 09:14 | disposition home or self-care (01) ==
PROVIDERS: PCP Registered Nurse; Visit Provider Specialist
PROC: (CPT 64721; principal; 2022-12-06 07:00)
PROC: (CPT 26055; 2022-12-06 07:00)
DX: G56.01 Carpal tunnel syndrome, right upper limb (principal); M65.341 Trigger finger, right ring finger; I25.10 Atherosclerotic heart disease of native coronary artery without angina pectoris; I10 Essential (primary) hypertension; K21.9 Gastro-esophageal reflux disease without esophagitis; Z79.4 Long term (current) use of insulin; Z79.02 Long term (current) use of antithrombotics/antiplatelets; E11.9 Type 2 diabetes mellitus without complications; E78.5 Hyperlipidemia, unspecified
CPT/HCPCS: 26055; 64721; 36416; 82962; J0131; J0330; J1100; J2250; J2405; J2704; J3010; J3490; J7030

== ENCOUNTER → 2023-02-21 13:48 | Outpatient (BNVA) | payer OTHER, SELFPAY | PROVIDERS: PCP Registered Nurse; Visit Provider Nurse Practitioner Family | DX: M25.531 Pain in right wrist (principal) | CPT/HCPCS: 73110 ==

== ENCOUNTER 2023-03-03 06:00 | Outpatient (CLI) | payer OTHER, SELFPAY | END 2023-03-03 23:59 | disposition home or self-care (01) | LOC: SPT 05-12 11:59 | PROVIDERS: PCP Registered Nurse; Visit Provider Nurse Practitioner | DX: Z46.89 Encounter for fitting and adjustment of other specified devices (principal); M65.4 Radial styloid tenosynovitis [de Quervain] | CPT/HCPCS: L3809 ==

== ENCOUNTER → 2023-03-03 13:34 | Outpatient (BNVA) | payer OTHER, SELFPAY | PROVIDERS: PCP Registered Nurse; Referring Provider Registered Nurse; Visit Provider Specialist | DX: G56.01 Carpal tunnel syndrome, right upper limb (principal); M65.4 Radial styloid tenosynovitis [de Quervain]; S60.221A Contusion of right hand, initial encounter; W19.XXXA Unspecified fall, initial encounter | CPT/HCPCS: 73130 ==

== ENCOUNTER → 2023-08-05 09:59 | Outpatient (BNVA) | payer OTHER, SELFPAY | PROVIDERS: PCP Registered Nurse; Visit Provider Registered Nurse | DX: E11.65 Type 2 diabetes mellitus with hyperglycemia (principal) | CPT/HCPCS: 80053; 83036 ==

== ENCOUNTER 2023-09-25 14:45 | Emergency (ER) | payer OTHER, SELFPAY ==
--- NOTE | 2023-09-25 14:47 | ECG_ITS ---
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 Measurements Intervals [place] Rate: 83 P: 38 TN: 138 QRS: -6 QRSD: 105 T: 48 QT: 346 QTc: 407 Interpretive Statements SINUS RHYTHM LOW QRS VOLTAGE IN PRECORDIAL LEADS [QRS DEFLECTION < 1.0 mV IN CHEST LEADS] ANTEROSEPTAL MYOCARDIAL INFARCTION , OF INDETERMINATE AGE [40+ ms Q WAVE IN V1-V4] Compared to ECG 11/27/2022 12:50:40 No significant changes Electronically Signed On 09-25-2023 23:06:20 CDT by Marce Matthew M.D. [id number]
--- NOTE | 2023-09-25 14:47 | XRR_ITS ---
PROCEDURE INFORMATION: Exam: XR Chest Exam date and time: 09/25/2023 3:44 PM Age: 53 years old Clinical indication: Pain; Angina pectoris; Additional info: Cp TECHNIQUE: Imaging protocol: Radiologic exam of the chest. Views: 1 view. COMPARISON: CR XR chest 1V portable [id number] 02/28/2020 10:01 AM FINDINGS: Lungs: Unremarkable. No consolidation or mass. Pleural spaces: Unremarkable. No pleural effusion. No pneumothorax. Heart/Mediastinum: Unremarkable. No cardiomegaly. Bones/joints: Unremarkable. XR/XR chest 1V portable [id number] IMPRESSION: No acute findings.
[2023-09-25 14:56] VITALS: BP 139/81; PULSE 88; TEMP 37.1; O2SAT 96; BMI 42.8
[2023-09-25 15:11] LABS: Basophils % 0.5 %; Eosinophils # 0.1 10^3/uL (0.0-0.8); Eosinophils % 2.1 %; Hematocrit 45.9 % (36-47); Lymphocytes % 15.7 %; Mean Corpuscular HGB Conc 31.6 g/dL (30-55); Mean Corpuscular Hemoglobin 28.3 pg (27-33); Mean Corpuscular Volume 89.5 fl (85-98); Mean Platelet Volume 11.3 fL (7.4-10.4); Monocytes # 0.4 10^3/uL (0.2-0.9); Monocytes % 5.9 %; Neutrophils # 4.71 10^3/uL (1.8-7.7); Neutrophils % 75.3 %; Nucleated Red Blood Cells % 0 %; Platelet Count 106 10^3/cmm (157-399); Red Blood Count 5.13 10^6/uL (3.85-5.65); Red Cell Distribution Width 16.4 % (12.1-15.1); White Blood Count 6.25 10^3/uL (3.29-11.43)
[2023-09-25 15:28] LABS: Troponin(5th) Baseline 12 ng/L (0-10)
[2023-09-25 15:31] LABS: Alanine Aminotransferase 21 U/L (0-33); Alkaline Phosphatase 175 U/L (35-105); Anion Gap 11.8 (5-19); Aspartate Amino Transferase 16 U/L (0-32); Blood Urea Nitrogen 12 mg/dL (6-20); Calcium 8.9 mg/dL (8.5-10.5); Carbon Dioxide 29 mmol/L (22-29); Chloride 104 mmol/L (98-107); Globulin 3.3 g/dL (1.3-4.6); Glomerular Filtration Rate 87.2 mL/min (90-130); Glucose 90 mg/dL (65-115); Lipase 30 U/L (13-60); Osmolality Calculated 291 mOsm/kg (285-295); Potassium 3.8 mmol/L (3.5-5.1); Sodium 141 mmol/L (136-145); Total Bilirubin 0.6 mg/dL (0.15-1.2); Total Protein 7.3 g/dL (6.6-8.7)
[2023-09-25 16:29] VITALS: BP 123/75; PULSE 77; RESP 16; O2SAT 93
--- NOTE | 2023-09-25 16:47 | ECG_ITS ---
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 Measurements Intervals [place] Rate: 76 P: 35 SC: 142 QRS: -8 QRSD: 100 T: 34 QT: 356 QTc: 402 Interpretive Statements SINUS RHYTHM LOW QRS VOLTAGE IN PRECORDIAL LEADS [QRS DEFLECTION < 1.0 mV IN CHEST LEADS] MINIMAL VOLTAGE CRITERIA FOR LVH, CONSIDER NORMAL VARIANT [MEETS CRITERIA IN ONE OF: R(aVL), S(V1), R(V5), R(V5/V6)+S(V1)] ANTEROSEPTAL MYOCARDIAL INFARCTION , OF INDETERMINATE AGE [40+ ms Q WAVE IN V1-V4] Compared to ECG 09/25/2023 14:52:29 No significant changes Electronically Signed On 09-25-2023 23:17:19 CDT by Marce Matthew M.D. [id number]
--- NOTE | 2023-09-25 17:44 | ED_ITS ---
HPI - Weakness 2 General: Chief complaint: Weakness Stated complaint: n/v, on and off chest pain, headache Time Seen by Provider: 09/25/23 17:30 Source: patient Mode of arrival: ambulatory Limitations: no limitations History of Present Illness: 53-year-old female states that over the last week she has had some off-and-on chest pain she has been having nausea and vomiting as well throughout the week with general fatigue. Patient states she had felt very fatigued yesterday she actually feels improved today but still having some mild chest pains denies any vomiting today last vomitus was yesterday denies any fevers denies any cough denies any shortness of breath Associated symptoms: Reports chest pain, nausea and vomiting; Denies chills, dysuria, fever(s) or headache(s) Review of Systems 2 Const: Denies: fever(s), chills, body aches or change in appetite Eyes: Denies: blurry vision or eye discomfort ENMT: Denies: throat pain or dental pain Card: Reports: chest pain Resp: Denies: dyspnea GI: Reports: nausea and vomiting; Denies: abdominal pain or diarrhea : Denies: dysuria Musc: Denies: neck pain or back pain Skin/Breast: Denies: rash Neuro: Denies: headache(s) PFSH ED 2 PFSH: Medical History Cigarette smoker two packs a day or less Vasovagal episode Type 2 diabetes mellitus Abnormal myocardial perfusion study Nonalcoholic fatty liver disease Ischemic cardiomyopathy Dyslipidemia associated with type 2 diabetes mellitus Benign essential hypertension with target blood pressure below 140/90 Atherosclerotic heart disease of [place] coronary artery with unstable angina pectoris Non-ST elevation [place] (NSTEMI) Morbid obesity with BMI of 45.0-49.9, adult Hypercholesterolemia Acid reflux Diabetes Surgical History Hx of toe surgery Hx of hysterectomy (~2008) abdominal-- MEMO, BSO for bleeding--- Joaquin H/O heart artery stent (~07/2019) Jerrell placed stent-- 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 History of 1995 2001 History of cholecystectomy Family History Father Diabetes Heart disease Hypertension Hypercholesteremia CAD (coronary artery disease) Family/Other Ovarian cancer Maternal great grandmother-- dx age 70's Mother Hypertension Brother Hypertension Diabetes Sister Hypertension Diabetes Grandfather CAD (coronary artery disease) Grandmother Cancer Dementia Denies family history of Colon cancer Clotting disorder Chronic kidney disease (CKD) Breast cancer Suicide Anesthesia complication Bleeding disorder Lung disease Uterine cancer Thyroid disease Stroke Social History Smoking and tobacco/nicotine status: current every day tobacco/nicotine user cigarettes Packs smoked per day: 0.5 Years cigarettes smoked: 35 Alcohol intake: never Substance/Drug Use: never Adopted: No Caregiver/support person: No Lives independently: No service: No Current occupational status: employed Sexually active: Yes Do you think of yourself as: Straight/Heterosexual Current gender identity: Female Special socorro needs: No Physical Exam 2 Const: COMMON NORMALS: no acute distress, patient oriented x3 and healthy appearing HENMT: COMMON NORMALS: normocephalic and atraumatic HEAD & SCALP: n ormocephalic and atraumatic Eye: COMMON NORMALS: Equal, round and reactive pupils present and EOMs intact bilaterally PUPIL: Yes Equal, round and reactive pupils present Neck/C-Spine: COMMON NORMALS: full ROM and supple Chest: COMMONS NORMALS: normal inspection of the chest and normal palpation of entire chest wall Resp: COMMON NORMALS: normal respiratory effort, No retractions, No use of accessory muscles and clear to auscultation bilaterally AUSCULTATION: clear to auscultation bilaterally Cardio: COMMON NORMALS: regular rate, regular rhythm and No murmurs present (Cardio) RATE: regular rate RHYTHM: regular rhythm GI: COMMON NORMALS: Normal to inspection, nondistended, normoactive bowel sounds present, Soft to palpation, non-tender and no masses PALPATION: Yes Soft to palpation Extremity: COMMON NORMALS: normal to inspection and full ROM Neuro: COMMON NORMALS: patient oriented x3, moves all extremities and no focal motor deficits Psych: COMMON NORMALS: mental status grossly normal, Normal thought process present and cooperative THOUGHT PROCESS: Normal thought process present Skin: COMMON NORMALS: no rashes or lesions noted and no wounds GENERAL SKIN EXAM: no rashes or lesions noted Course 2 Vital Signs: Vital signs: Vital Signs Temperature 98.8 F 09/25/23 14:56 Pulse Rate 77 09/25/23 16:29 Respiratory Rate 16 09/25/23 16:29 Blood Pressure 123/75 09/25/23 16:29 Pulse Oximetry 93 09/25/23 16:29 Oxygen Delivery Me thod Room Air 09/25/23 14:56 MDM - Weakness Medical Decision Making Patient presents here with nausea vomiting along with some chest pain she is well-appearing here he is feeling improved troponins are normal she has no signs of acute coronary syndrome her abdominal exam is benign she stable for discharge we will place her on Zofran she is return if worsening. Medical Records I reviewed the patient's medical records. Lab Data I reviewed the patient's lab results. 09/25/23 15:05 09/25/23 15:05 Radiology Impressions Chest X-Ray 09/25/23 14:47 IMPRESSION: No acute findings. Laboratory Results WBC 6.25 10^3/uL (3.29-11.43) 09/25/23 15:05 RBC 5.13 10^6/uL (3.85-5.65) 09/25/23 15:05 Hgb 14.50 g/dL (11.27-16.99) 09/25/23 15:05 Hct 45.9 % (36-47) 09/25/23 15:05 MCV 89.5 fl (85-98) 09/25/23 15:05 MCH 28.3 pg (27-33) 09/25/23 15:05 MCHC 31.6 g/dL (30-55) 09/25/23 15:05 RDW 16.4 % (12.1-15.1) H 09/25/23 15:05 Plt Count 106 10^3/cmm (157-399) L 09/25/23 15:05 MPV 11.3 fL (7.4-10.4) H 09/25/23 15:05 Neut % (Auto) 75.3 % 09/25/23 15:05 Lymph % (Auto) 15.7 % 09/25/23 15:05 [place] % (Auto) 5.9 % 09/25/23 15:05 Eos % (Auto) 2.1 % 09/25/23 15:05 Baso % (Auto) 0.5 % 09/25/23 15:05 Neut # (Auto) 4.71 10^3/uL (1.8-7.7) 09/25/23 15:05 Lymph # (Auto) 1.0 10^3/uL (0.8-4.8) 09/25/23 15:05 [place]entry # (Auto) 0.4 10^3/uL (0.2-0.9) 09/25/23 15:05 Eos # (Auto) 0.1 10^3/uL (0.0-0.8) 09/25/23 15:05 Baso # (Auto) 0.0 10^3/uL (0.0-0.1) 09/25/23 15:05 Nucleated RBC % (auto) 0 % 09/25/23 15:05 Nucleated RBCs # 0.0 /100WBC 09/25/23 15:05 Sodium 141 mmol/L (136-145) 09/25/23 15:05 Potassium 3.8 mmol/L (3.5-5.1) 09/25/23 15:05 Chloride 104 mmol/L (98-107) 09/25/23 15:05 Carbon Dioxide 29 mmol/L (22-29) 09/25/23 15:05 Anion Gap 11.8 (5-19) 09/25/23 15:05 BUN 12 mg/dL (6-20) 09/25/23 15:05 Creatinine 0.7 mg/dL (0.5-0.9) 09/25/23 15:05 GFR Calculation 87.2 mL/min (90-130) L 09/25/23 15:05 Glucose 90 mg/dL (65-115) 09/25/23 15:05 Calculated Osmolality 291 mOsm/kg (285-295) 09/25/23 15:05 Calcium 8.9 mg/dL (8.5-10.5) 09/25/23 15:05 Total Bilirubin 0.6 mg/dL (0.15-1.2) 09/25/23 15:05 AST 16 U/L (0-32) 09/25/23 15:05 ALT 21 U/L (0-33) 09/25/23 15:05 Alkaline Phosphatase 175 U/L (35-105) H 09/25/23 15:05 Troponin T Baseline 12 ng/L (0-10) H 09/25/23 15:05 Troponin T 120 Minute 11.33 ng/L (0-10) H 09/25/23 17:45 Delta Troponin T -0.67 ABS# (0-10) L 09/25/23 17:45 Total Protein 7.3 g/dL (6.6-8.7) 09/25/23 15:05 Albumin 4.0 g/dL (3.5-5.2) 09/25/23 15:05 Globulin 3.3 g/dL (1.3-4.6) 09/25/23 15:05 Lipase 30 U/L (13-60) 09/25/23 15:05 All radiology interpretation(s) finalized by discharge EKG Data EKG 1: I personally reviewed and interpreted this EKG as follows: EKG interpretation date: 09/25/23 EKG interpretation time: 17:13 Interpretation: nsr hr [address] or t wave abnormalities qrs 100 qtc 387 Discharge Plan Discharge Patient Disposition: Home Clinical Impression: Chest pain, Vomiting Condition: Stable Prescriptions: New ondansetron 4 mg tablet,disintegrating 4 mg PO Q6H PRN (Reason: nausea and vomiting) Qty: 14 0RF No Action triamcinolone acetonide 0.5 % cream 1 applic topical DAILY PRN (Reason: atopic dermatitis) 30 Days Qty: 15 0RF (DME) Thumb Spica Splint See Rx Instructions .Route .MEDSUPPLY Qty: 1 0RF Rx Instructions: As directed empagliflozin 25 mg tablet 25 mg PO DAILY Qty: 90 1RF (DME) CPAP with supplies See Rx Instructions .Route .MEDSUPPLY Qty: 1 0RF Rx Instructions: Needs new machine & supplies due to hers getting destroyed by animal. fluticasone propionate 50 mcg/actuation spray,suspension 2 spray intranasal DAILY Qty: 16 0RF Rx Instructions: administer into each nostril (DME) COCK UP SPLINT. See Rx Instructions .Route .MEDSUPPLY Qty: 1 0RF Rx Instructions: As directed budesonide-formoterol [Symbicort] 160-4.5 mcg/actuation HFA aerosol inhaler 2 puff inhalation BID (DME) CPAP supplies See Rx Instructions .Route .MEDSUPPLY Qty: 1 0RF Rx Instructions: As directed (DME) CPAP machine See Rx Instructions .Route .MEDSUPPLY Qty: 1 0RF Rx Instructions: As directed metoprolol tartrate 25 mg tablet 25 mg PO BID Qty: 180 3RF atorvastatin 80 mg tablet See Rx Instructions .ROUTE .COMPLEX Qty: 90 0RF Dose Instruction: TAKE ONE TABLET BY MOUTH DAILY Rx Instructions: TAKE ONE TABLET BY MOUTH DAILY Entresto 49-51 mg tablet 1 tab PO DIRECTED Qty: 90 11RF Rx Instructions: Take 2 tablets in the morning and 1 in the evening venlafaxine 75 mg capsule,extended release 24hr See Rx Instructions .ROUTE .COMPLEX Qty: 90 0RF Dose Instruction: TAKE ONE CAPSULE BY MOUTH DAILY Rx Instructions: TAKE ONE CAPSULE BY MOUTH DAILY spironolactone 25 mg tablet See Rx Instructions .ROUTE .COMPLEX Qty: 90 0RF Dose Instruction: TAKE ONE TABLET BY MOUTH DAILY Rx Instructions: TAKE ONE TABLET BY MOUTH DAILY isosorbide mononitrate 30 mg tablet extended release 24 hr See Rx Instructions .ROUTE .COMPLEX Qty: 330 2RF Dose Instruction: TAKE ONE TABLET BY MOUTH DAILY Rx Instructions: TAKE ONE TABLET BY MOUTH DAILY clopidogrel 75 mg tablet See Rx Instructions .ROUTE .COMPLEX Qty: 90 0RF Dose Instruction: TAKE ONE TABLET BY MOUTH DAILY Rx Instructions: TAKE ONE TABLET BY MOUTH DAILY pantoprazole 20 mg tablet,delayed release (DR/EC) See Rx Instructions .ROUTE .COMPLEX Qty: 90 0RF Dose Instruction: TAKE ONE TABLET BY MOUTH DAILY Rx Instructions: TAKE ONE TABLET BY MOUTH DAILY montelukast 10 mg tablet See Rx Instructions .ROUTE .COMPLEX Qty: 30 0RF Dose Instruction: TAKE ONE TABLET BY MOUTH DAILY Rx Instructions: TAKE ONE TABLET BY MOUTH DAILY pregabalin [Lyrica] 150 mg capsule 150 mg PO BID 30 Days Qty: 60 2RF Humulin R U-500 (Conc) Insulin 500 unit/mL solution See Rx Instructions .ROUTE .COMPLEX Rx Instructions: 100 units in the morning, 75 units at noon, 60 units in the evening Discharge Orders: Discharge ED (Routine); Ordered 09/25/23 Ordered By: Randall Ceja Referrals: Ralph Rothman, HAND COUNTER [Primary Care Provider] - 4-7 days Discharge Diet: Advance as tolerated Discharge Activity: Resume usual activity Patient Instructions: Chest Pain (ED), Acute Nausea and Vomiting (ED) Coding Level of Care Code ED Mannequin Mounter for Brooke Stephen
[2023-09-25] MEDS: sodium chloride 0.9% 1,000 ML 999 ML IV (17:49)
[2023-09-25 18:23] LABS: Troponin 5 2HR 11.33 ng/L (0-10)
[2023-09-25 18:24] LABS: Troponin 5 2HR Delta -0.67 ABS# (0-10)
[2023-09-25 18:47] VITALS: BP 142/72; PULSE 77; O2SAT 92
== END 2023-09-25 18:47 | disposition home or self-care (01) ==
PROVIDERS: Emergency Provider Emergency Medicine; PCP Registered Nurse
DX: R07.9 Chest pain, unspecified (principal); R11.11 Vomiting without nausea; Z79.02 Long term (current) use of antithrombotics/antiplatelets; Z79.4 Long term (current) use of insulin; F17.210 Nicotine dependence, cigarettes, uncomplicated; E11.9 Type 2 diabetes mellitus without complications; I25.5 Ischemic cardiomyopathy; I10 Essential (primary) hypertension; E78.5 Hyperlipidemia, unspecified; I25.110 Atherosclerotic heart disease of native coronary artery with unstable angina pectoris; I25.2 Old myocardial infarction
CPT/HCPCS: 36415; 71045; 80053; 83690; 84484; 85025; 93005; 99285; J7030

== ENCOUNTER → 2023-11-11 15:31 | Outpatient (BNVA) | payer OTHER, SELFPAY | PROVIDERS: PCP Registered Nurse; Visit Provider Registered Nurse | DX: L98.9 Disorder of the skin and subcutaneous tissue, unspecified (principal) | CPT/HCPCS: 88305 ==

== ENCOUNTER → 2024-04-29 13:35 | Outpatient (BNVA) | payer OTHER, SELFPAY | PROVIDERS: PCP Registered Nurse; Visit Provider Registered Nurse | DX: J06.9 Acute upper respiratory infection, unspecified (principal) | CPT/HCPCS: 87400; 87426 ==

== ENCOUNTER 2024-06-21 10:01 | Outpatient (CLI) | payer OTHER, SELFPAY ==
--- NOTE | 2024-06-21 10:11 | XR_ITS ---
WS: [id number] Exam: XR KUB [id number] Date/Time of Exam: 06/21/2024 10:11 AM Reason For Exam: K59.00 - Constipation, unspecified No bowel obstruction or pneumoperitoneum. Moderate splenomegaly. Status post cholecystectomy. 1.5 x 0 .8 cm calcification superimposing the LEFT kidney and may represent a renal calculus. Moderate DJD of the lower lumbar spine. XR/XR KUB [id number] IMPRESSION: 1. Moderate splenomegaly. 2. 1.5 x 0.8 cm calcification superimposing the LEFT kidney that may represent a renal calculus. 3. No acute finding.
== END 2024-06-21 10:02 | disposition home or self-care (01) ==
LOC: RAD 10:04
PROVIDERS: PCP Registered Nurse; Visit Provider Registered Nurse
DX: K59.00 Constipation, unspecified (principal); R16.1 Splenomegaly, not elsewhere classified; Z90.49 Acquired absence of other specified parts of digestive tract; N28.89 Other specified disorders of kidney and ureter; M47.896 Other spondylosis, lumbar region
CPT/HCPCS: 74018

== ENCOUNTER 2024-07-07 09:59 | Outpatient (CLI) | payer OTHER, SELFPAY ==
--- NOTE | 2024-07-07 10:30 | CT_ITS ---
WS: [id number] CT ABDOMEN AND PELVIS NONCONTRAST HISTORY: R16.1 - Splenomegaly, not elsewhere classified TECHNIQUE: Imaging performed through the abdomen and pelvis. Coronal and sagittal reformats are submitted. All CT scans at [facility] use at least one of these dose optimization techniques: automated exposure control; mA and/or kV adjustment per patient size (includes targeted exams where dose is matched to clinical indication); or iterative reconstruction. DLP: 1521.16 mGy.cm COMPARISON: None available. Lower thorax: Incompletely visualized 4 mm nodule in the RIGHT middle lobe. Otherwise lung bases are clear. Liver: Mild hepatic steatosis. Surface nodularity of the liver and enlarged caudate lobe. Very minimal heterogeneity within the liver. No bile duct dilatation. Gallbladder: Prior cholecystectomy. Pancreas: Bulbous, nodular appearance of the pancreatic tail. Superimposed nonenhancing splenic vein may be contributing to the nodularity. There are also a few small lymph nodes in the central abdomen near the celiac axis along with mild fatty soft tissue infiltration. Spleen: 16.5 cm. Enlarged spleen with no change in attenuation. Adrenal glands: RIGHT adrenal gland adenoma, 1.8 x 1.5 cm. LEFT adrenal myelolipoma 2.0 x 2.7 cm. Right kidney: Normal size kidney with no mass or hydronephrosis. Left kidney: Nonobstructing central calcification. Aorta: Mild atherosclerosis abdominal aorta with no aneurysm. Calcifications extends into the mid SMV. No free fluid, intraperitoneal air or significant lymphadenopathy. GI tract: Nondistended stomach. No small bowel obstruction. No appendicitis. Scattered sigmoid diverticulosis without acute diverticulitis. Abdominal wall: Ventral abdominal wall hernia contains fat only. Hernia is infraumbilical in location. Mild fatty atrophy of the abdominal wall. Pelvis: No free fluid. Normal urinary bladder. Osseous structures: Unremarkable. CT/CT abdomen pelvis wo con [id number] IMPRESSION: 1. Bulbous enlarged appearance of the pancreatic tail. Splenic vein is overlyi ng the pancreatic tail and may be contributing to the bulbous appearance. There is also mild stranding in the adjacent fat. Recommend follow-up pancreatic CT protocol. Arterial and portal venous phase imaging and oral contrast recommende d. Pancreatic mass and adenopathy need to be excluded. 2. Splenomegaly. 16.5 cm in length. 3. Cirrhotic liver. 4. RIGHT adrenal adenoma. 5. LEFT adrenal myolipoma. 6. Nonobstructing LEFT renal calcification. 7. Infraumbilical abdominal wall hernia contains fat only. 8. RIGHT middle lobe noncalcified 4 mm nodule. Follow-up chest CT recommended in 6 months.
== END 2024-07-07 10:00 | disposition home or self-care (01) ==
LOC: RAD 10:00
PROVIDERS: PCP Registered Nurse; Visit Provider Registered Nurse
DX: R16.1 Splenomegaly, not elsewhere classified (principal); N20.0 Calculus of kidney; R93.3 Abnormal findings on diagnostic imaging of other parts of digestive tract; K74.60 Unspecified cirrhosis of liver; D35.01 Benign neoplasm of right adrenal gland; D17.79 Benign lipomatous neoplasm of other sites; N28.89 Other specified disorders of kidney and ureter; R91.1 Solitary pulmonary nodule; K76.0 Fatty (change of) liver, not elsewhere classified; R93.2 Abnormal findings on diagnostic imaging of liver and biliary tract; Z90.49 Acquired absence of other specified parts of digestive tract; R59.0 Localized enlarged lymph nodes; I70.0 Atherosclerosis of aorta; R93.89 Abnormal findings on diagnostic imaging of other specified body structures; K43.9 Ventral hernia without obstruction or gangrene; K57.30 Diverticulosis of large intestine without perforation or abscess without bleeding; R93.5 Abnormal findings on diagnostic imaging of other abdominal regions, including retroperitoneum
CPT/HCPCS: 74176

== ENCOUNTER 2024-07-29 07:31 | Day surgery (SDC) | payer OTHER, SELFPAY ==
[2024-07-29 07:43] VITALS: BP 137/82; PULSE 125; RESP 20; TEMP 36.4; O2SAT 97
[2024-07-29 07:44] VITALS: BMI 45.1
--- NOTE | 2024-07-29 07:54 | W.PM.OPSUD ---
Surgery/Procedure H&P Update DATE OF PROCEDURE: July 29, 2024 DATE H&P PERFORMED: 07/16/24 H&P UPDATE INFORMATION: I have reviewed H&P completed within last 30 days, I have examined patient prior to procedure, No changes to prior documentation and H&P is in [facility] EMR on date indicated PLANNED PROCEDURE: Operation Date: 07/29/24 09:00 Proposed Procedures p Colonoscopy [id number] G0105 Z12.11(Not Applicable) - Nate Enciso MD
[2024-07-29] MEDS: sodium chloride 0.9% 1,000 ML 30 ML IV (08:03)
[2024-07-29 08:14] LABS: Glucose Point of Care 167 mg/dL (70-110)
--- NOTE | 2024-07-29 08:18 | ANES.PREANE2 ---
Pre-Anesthetic Assessment Height/Weight: Height 1.78 m Weight 142.882 kg Temp Pulse Resp BP Pulse Ox O2 Del Method 97.5 F L 125 H 20 H 137/82 97 Room Air 07/29/24 07:43 07/29/24 07:43 07/29/24 07:43 07/29/24 07:43 07/29/24 07:43 07/29/24 07:43 Preop Diagnosis: Screen Operation Date: 07/29/24 09:00 Proposed Procedures p Colonoscopy 86282 G0105 Z12.11(Not Applicable) - Nate Enciso MD Familial anesthetic complications: none Was Clonidine taken within 24 hours: N/A Last intake: Intake Last Liquid Date 07/28/24 Last Liquid Time 22:30 Last Solid Date 07/27/24 Last Solid Time 18:00 Social Tobacco and No alcohol 3/4 pack(s) per day 30 pack years Exam alert, oriented x 3, clear to auscultation bilaterally and regular rate & rhythm Airway Cervical ROM: within normal limits Mallampati: Class III Comments: Comments: teeth intact Pulmonary Sleep Apnea recent imaging shows 4m nodule right middle lobe, CT follow up scheduled. Smoker, Denies SOB today CV/HEM Coronary Artery Disease, Hypertension and Myocardial Infarction stent x1, plavix last on friday, follows cardiology echo from 2021 EF 63% no new symptoms. Has tolerated previous anesthetics well. None reported Hepatic MARIA GI Gastroesophageal Reflux Disease Metabolic Diabetes Mellitus, Hyperlipidemia and Morbid Obesity BMI 45 preop BG 163 Musc/skel None reported Neuropsych None reported Anesthetic Plan ASA status: 3 Anesthesia: MAC Risk of > 500 ml blood loss (7ml/kg in children): No Medications/Allergies Home Medications ?Medication ?Instructions ?Recorded ?Confirmed ?Last Taken ?Type CPAP supplies #1 ea 03/20/22 07/29/24 Unknown Rx CPAP machine #1 ea 03/21/22 07/29/24 Unknown Rx CPAP with supplies #1 ea 05/07/22 07/29/24 Unknown Rx insulin regular hum U-500 conc 500 See Rx Instructions .Route .COMPLEX 07/26/22 07/29/24 07/27/24 History unit/mL subcutaneous soln (Humulin R U-500 (Concentrated) Insulin) triamcinolone acetonide 0.5 % 1 applic topical DAILY PRN atopic 07/26/22 07/29/24 07/28/24 Rx topical cream dermatitis 30 days #15 grams fluticasone propionate 50 2 spray intranasal DAILY #16 grams 08/15/22 07/29/24 07/28/24 Rx mcg/actuation nasal spray,suspension COCK UP SPLINT. #1 ea 11/13/22 07/29/24 Unknown Rx Thumb Spica Splint #1 ea 03/03/23 07/29/24 Unknown Rx sacubitril 97 mg-valsartan 103 mg 1 tab PO BID #180 tabs 11/19/23 07/29/24 07/28/24 Rx tablet (Entresto) empagliflozin 25 mg tablet 25 mg PO DAILY #90 tabs 01/20/24 07/29/24 07/28/24 Rx albuterol sulfate 2.5 mg/3 mL 2.5 mg (3 mL) inhalation Q4H PRN 04/29/24 07/29/24 Unknown Rx (0.083 %) solution for nebulization bronchospasm 7 days #180 mL pregabalin 150 mg capsule (Lyrica) 150 mg PO BID 30 days #60 caps 05/06/24 07/29/24 07/29/24 Rx pantoprazole 20 mg tablet,delayed 20 mg PO BID 90 days #180 tabs 06/15/24 07/29/24 07/28/24 Rx release metoprolol tartrate 25 mg tablet 25 mg PO BID #180 tabs 07/26/24 07/29/24 07/29/24 Rx albuterol sulfate 90 mcg/actuation 1 inh inhalation Q6H PRN 07/27/24 07/29/24 07/26/24 History aerosol inhaler Bronchospasm atorvastatin 80 mg tablet 80 mg PO DAILY 07/27/24 07/29/24 07/28/24 History budesonide-formoterol HFA 160 2 puff inhalation BID 07/27/24 07/29/24 07/27/24 History mcg-4.5 mcg/actuation aerosol inhaler clopidogrel 75 mg tablet 75 mg PO DAILY 07/27/24 07/29/24 07/23/24 History isosorbide mononitrate 30 mg 30 mg PO DAILY 07/27/24 07/29/24 07/29/24 History tablet,extended release 24 hr montelukast 10 mg tablet 10 mg PO DAILY 0307/29/24 07/29/24 History polyethylene glycol 3350 17 17 g PO BID 07/27/24 07/29/24 07/28/24 History gram/dose oral powder (Miralax) spironolactone 25 mg tablet 25 mg PO DAILY 07/27/24 07/29/24 07/29/24 History venlafaxine 75 mg capsule,extended 75 mg PO DAILY 07/27/24 07/29/24 07/29/24 History release 24 hr Allergies Allergy/AdvReac Type Severity Reaction Status Date / Time adhesive tape Allergy Intermediate ALGY-Rash Verified 07/27/24 10:32 cephalexin (From Keflex) Allergy ADR-Itching Verified 07/27/24 10:32 Penicillins Allergy ADR-Itching Verified 07/27/24 10:32 contast dye Allergy Severe ALGY-Anaphy Uncoded 07/27/24 10:32 laxis Current Medications Generic Name Dose Route Start Last Admin Trade Name Freq PRN Reason Stop Dose Admin Sodium Chloride 1,000 mls @ 30 mls/hr 07/29/24 08:15 07/29/24 08:03 Sodium Chloride 0.9% IV 30 mls/hr .Q24H RUSSELL Administration PFSH Anesthesia Medical History Ischemic cardiomyopathy Cigarette smoker two packs a day or less Vasovagal episode Type 2 diabetes mellitus Abnormal myocardial perfusion study Nonalcoholic fatty liver disease Dyslipidemia associated with type 2 diabetes mellitus Benign essential hypertension with target blood pressure below 140/90 Atherosclerotic heart disease of [place] coronary artery with unstable angina pectoris Non-ST elevation CT (NSTEMI) Morbid obesity with BMI of 45.0-49.9, adult Hypercholesterolemia Acid reflux Diabetes Surgical History Hx of toe surgery Hx of hysterectomy (~2008) abdominal-- MEMO, BSO for bleeding--- Joaquin H/O heart artery stent (~07/2019) 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 History of 1995 2001 History of cholecystectomy Family History Father Diabetes Heart disease Hypertension Hypercholesteremia CAD (coronary artery disease) Family/Other Ovarian cancer Maternal great grandmother-- dx age 70's Mother Hypertension Brother Hypertension Diabetes Sister Hypertension Diabetes Grandfather CAD (coronary artery disease) Grandmother Cancer Dementia Denies family history of Colon cancer Clotting disorder Chronic kidney disease (CKD) Breast cancer Suicide Anesthesia complication Bleeding disorder Lung disease Uterine cancer Thyroid disease Stroke Social History Smoking and tobacco/nicotine status: current every day tobacco/nicotine user cigarettes Packs smoked per day: 0.5 Years cigarettes smoked: 35 Alcohol intake: never Substance/Drug Use: never Adopted: No Caregiver/support person: No Lives independently: No service: No Current occupational status: employed Sexually active: Yes Do you think of yourself as: Straight/Heterosexual Current gender identity: Female Special socorro needs: No Data Anesthesia Cardiac Studies: Echocardiogram 03/08/22 Echocardiogram Ultrasound 02/29/20 Sestamibi Stress Test (Cardiology) 01/02/21 Cardiac Event Monitor 01/25/21
[2024-07-29 09:10] VITALS: BP 102/66; PULSE 102; RESP 18; TEMP 36.2; O2SAT 94
[2024-07-29 09:21] VITALS: BP 116/64; PULSE 101; RESP 18; O2SAT 94
[2024-07-29 09:33] VITALS: BP 132/80; PULSE 104; RESP 16; O2SAT 97
--- NOTE | 2024-07-29 09:45 | ANE.PACU2 ---
Inpatient post-anesthesia follow up: Airway intact: Yes Vital signs: Temperature 97.2 F Pulse Rate 104 Respiratory Rate 16 Blood Pressure 132/80 Pulse Oximetry 97 Oxygen Delivery Me thod Room Air Oxygen Flow Rate Fraction of Inspir ed Oxygen Hydration adequate: Yes Nausea and vomiting: No Pain level: 1 Mental status: Baseline
== END 2024-07-29 09:45 | disposition home or self-care (01) ==
PROVIDERS: PCP Registered Nurse; Visit Provider Surgery
PROC: 0DJD8ZZ Inspection of Lower Intestinal Tract, Via Natural or Artificial Opening Endoscopic (ICD-10-PCS; CPT 45378; principal; 2024-07-29 09:00)
DX: Z12.11 Encounter for screening for malignant neoplasm of colon (principal); D12.8 Benign neoplasm of rectum; D12.4 Benign neoplasm of descending colon; K57.30 Diverticulosis of large intestine without perforation or abscess without bleeding; K64.8 Other hemorrhoids; I25.10 Atherosclerotic heart disease of native coronary artery without angina pectoris; G47.30 Sleep apnea, unspecified; E78.5 Hyperlipidemia, unspecified; K21.9 Gastro-esophageal reflux disease without esophagitis; E66.01 Morbid (severe) obesity due to excess calories; Z68.42 Body mass index [BMI] 45.0-49.9, adult; I10 Essential (primary) hypertension; I25.2 Old myocardial infarction; Z95.5 Presence of coronary angioplasty implant and graft; Z79.02 Long term (current) use of antithrombotics/antiplatelets; F17.210 Nicotine dependence, cigarettes, uncomplicated; R91.1 Solitary pulmonary nodule; E11.69 Type 2 diabetes mellitus with other specified complication; Z79.899 Other long term (current) drug therapy; Z79.4 Long term (current) use of insulin; Z88.0 Allergy status to penicillin; Z91.041 Radiographic dye allergy status; Z91.09 Other allergy status, other than to drugs and biological substances; Z88.1 Allergy status to other antibiotic agents; Z90.49 Acquired absence of other specified parts of digestive tract; Z90.710 Acquired absence of both cervix and uterus
CPT/HCPCS: 36416; 45380; 45385; 82962; 88305; J2371; J2704; J7030

== ENCOUNTER 2024-07-30 15:16 | Outpatient (CLI) | payer OTHER, SELFPAY ==
--- NOTE | 2024-07-30 15:30 | CTR_ITS ---
PROCEDURE INFORMATION: Exam: CT Chest Without Contrast; Diagnostic Exam date and time: 07/30/2024 3:17 PM Age: 54 years old Clinical indication: Condition or disease; Lung condition and disease; Pulmonary nodule, solitary; Prior surgery; Surgery date: 6+ months; Surgery type: Cardiac stents; Additional info: R91.1 - solitary pulmonary nodule, allergic to oral contrast TECHNIQUE: Imaging protocol: Diagnostic computed tomography of the chest without contrast. Radiation optimization: All CT scans at this facility use at least one of these dose optimization techniques: automated exposure control; mA and/or kV adjustment per patient size (includes targeted exams where dose is matched to clinical indication); or iterative reconstruction. COMPARISON: 1. CR XR chest 1V portable [id number] 09/25/2023 3:[address] abdomen pelvis wo con [id number] 07/07/2024 10:12 AM RADIATION DOSE METRICS: Total DLP (mGy-cm): 761.21 FINDINGS: Thyroid: No significant thyroid pathology. Lungs: 4 x 3 mm right perifissural nodule right mid lung zone anteriorly series 5, image 38. 3 mm left lower lobe nodule series 5, image 37. Pleural spaces: No pleural effusion. Heart: No significant pathology. Coronary arteries: Coronary artery calcifications. Esophagus: Mild mural thickening distal thoracic esophagus. Lymph nodes: No evidence of lymphadenopathy. Borderline left anterior diaphragmatic lymphadenopathy with 2 adjacent nodes each measuring 5 mm short axis on series 4, image 47. Vasculature: No evidence of thoracic aortic aneurysm. Varices are present in the upper abdomen in the gastrohepatic ligament and upper retroperitoneum, incompletely imaged. Liver: Features of hepatic cirrhosis are present. Gallbladder and biliary ducts: Prior cholecystectomy. Spleen: Splenomegaly measuring up to 16.3 cm. Adrenal glands: Right adrenal adenoma and left adrenal myelolipoma as seen on prior abdominal CT. Bones/joints: Moderate degenerative change present in the spine. Soft tissues: Unremarkable. CT/CT chest wo con [id number] IMPRESSION: 1. Two small pulmonary nodules 1 of which was seen on recent CT abdomen pelvis; per Fleischner criteria, in this age group 12 month follow-up is recommended for surveillance. 2. Upper abdominal abnormalities again noted including features of cirrhosis, splenomegaly and bilateral benign adrenal lesions.
== END 2024-07-30 15:17 | disposition home or self-care (01) ==
PROVIDERS: PCP Registered Nurse; Visit Provider Registered Nurse
DX: R91.8 Other nonspecific abnormal finding of lung field (principal); I25.10 Atherosclerotic heart disease of native coronary artery without angina pectoris; K22.89 Other specified disease of esophagus; R59.0 Localized enlarged lymph nodes; R93.2 Abnormal findings on diagnostic imaging of liver and biliary tract; Z90.49 Acquired absence of other specified parts of digestive tract; R16.1 Splenomegaly, not elsewhere classified; D35.01 Benign neoplasm of right adrenal gland; D17.79 Benign lipomatous neoplasm of other sites; M47.9 Spondylosis, unspecified
CPT/HCPCS: 71250

== ENCOUNTER → 2024-08-09 14:44 | Outpatient (BNVA) | payer OTHER, SELFPAY | PROVIDERS: PCP Registered Nurse; Visit Provider Registered Nurse | DX: E11.65 Type 2 diabetes mellitus with hyperglycemia (principal); E11.9 Type 2 diabetes mellitus without complications | CPT/HCPCS: 80053; 80061; 81000; 83036; 85025 ==

== ENCOUNTER 2024-09-11 19:23 | Emergency (ER) | payer OTHER, SELFPAY ==
[2024-09-11 19:25] VITALS: BP 112/68; PULSE 83; RESP 18; O2SAT 96; BMI 42.3
--- NOTE | 2024-09-11 19:47 | XRR_ITS ---
PROCEDURE INFORMATION: Exam: XR Bilateral Hips Exam date and time: 09/11/2024 8:45 PM Age: 54 years old Clinical indication: Hip pain; Left hip; Additional info: Lt hip pain; Cancer PT; Began chemo x 1 week ago; Severe left posterior hip/pelvic/sciatic pain; No new injury. TECHNIQUE: Imaging protocol: Radiologic exam of the bilateral hips. Views: 2 views of hips with pelvis when performed. COMPARISON: CT abdomen pelvis wo con [id number] 07/07/2024 10:12 AM FINDINGS: Bones/joints: No acute fracture or dislocation. No suspicious bony lesion. 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 Vascular calcification. XR/XR hip BI 3-4V wo/w pel [id number] IMPRESSION: No acute bony findings.
[2024-09-11 20:15] LABS: Hematocrit 28.8 % (36-47); Lymphocytes # 0.1 10^3/uL (0.8-4.8); Lymphocytes % 2.5 %; Mean Corpuscular HGB Conc 30.6 g/dL (30-55); Mean Corpuscular Hemoglobin 27.2 pg (27-33); Mean Corpuscular Volume 89.2 fl (85-98); Mean Platelet Volume 11.6 fL (7.4-10.4); Monocytes % 1.1 %; Neutrophils # 3.51 10^3/uL (1.8-7.7); Neutrophils % 95.9 %; Nucleated Red Blood Cells % 0 %; Platelet Count 84 10^3/cmm (157-399); Red Blood Count 3.23 10^6/uL (3.85-5.65); White Blood Count 3.66 10^3/uL (3.29-11.43)
--- NOTE | 2024-09-11 20:23 | W.ED.EXTPRO ---
Documented by User: James Kelly 09/11/24 22:09 HPI - Extremity Problem General: Chief complaint: Extremity Problem,Nontraumatic Stated complaint: LEFT HIP PAIN Time Seen by Provider: 09/11/24 19:27 History of Present Illness: 54-year-old female presents to the ER chief complaint of progressive left-sided hip pain. Patient endorses a recent history of lymphoma she is currently being treated for by chemotherapy on this was last week patient endorsed that she was contacted by her oncologist on her most recent PET there was concerns of possibly a hairline fracture of the the pelvis or the hip patient does endorse pain with a walk on it up until recently becoming more progressively painful with worse with range of motion and weightbearing patient denies any recent trauma or injury reporting no other associated symptoms she presents to the ER for further assessment and management. Patient reports all of her medical records has been done at [facility]. Associated symptoms: Deny chest pain, fever(s) or rash Related Data Home Medications ?Medication ?Instructions ?Recorded ?Confirmed insulin regular hum U-500 conc 500 See Rx Instructions .Route .COMPLEX 07/26/22 08/30/24 unit/mL subcutaneous soln (Humulin R U-500 (Concentrated) Insulin) albuterol sulfate 90 mcg/actuation 1 inh inhalation Q6H PRN 07/27/24 08/30/24 aerosol inhaler Bronchospasm atorvastatin 80 mg tablet 80 mg PO DAILY 07/27/24 08/30/24 budesonide-formoterol HFA 160 2 puff inhalation BID 07/27/24 08/30/24 mcg-4.5 mcg/actuation aerosol inhaler clopidogrel 75 mg tablet 75 mg PO DAILY 07/27/24 08/30/24 isosorbide mononitrate 30 mg 30 mg PO DAILY 07/27/24 08/30/24 tablet,extended release 24 hr montelukast 10 mg tablet 10 mg PO DAILY 07/27/24 08/30/24 polyethylene glycol 3350 17 17 g PO BID 07/27/24 08/30/24 gram/dose oral powder (Miralax) venlafaxine 75 mg capsule,extended 75 mg PO DAILY 07/27/24 08/30/24 release 24 hr Previous Rx's ?Medication ?Instructions ?Recorded CPAP supplies #1 ea 03/20/22 CPAP machine #1 ea 03/21/22 CPAP with supplies #1 ea 05/07/22 triamcinolone acetonide 0.5 % 1 applic topical DAILY PRN atopic 07/26/22 topical cream dermatitis 30 days #15 grams fluticasone propionate 50 2 spray intranasal DAILY #16 grams 08/15/22 mcg/actuation nasal spray,suspension COCK UP SPLINT. #1 ea 11/13/22 Thumb Spica Splint #1 ea 03/03/23 sacubitril 97 mg-valsartan 103 mg 1 tab PO BID #180 tabs 11/19/23 tablet (Entresto) empagliflozin 25 mg tablet 25 mg PO DAILY #90 tabs 01/20/24 albuterol sulfate 2.5 mg/3 mL 2.5 mg (3 mL) inhalation Q4H PRN 04/29/24 (0.083 %) solution for nebulization bronchospasm 7 days #180 mL pregabalin 150 mg capsule (Lyrica) 150 mg PO BID 30 days #60 caps 05/06/24 pantoprazole 20 mg tablet,delayed 20 mg PO BID 90 days #180 tabs 06/15/24 release metoprolol tartrate 25 mg tablet 25 mg PO BID #180 tabs 07/26/24 spironolactone 25 mg tablet 25 mg PO DAILY #90 tabs 08/30/24 hydrocodone 5 mg-acetaminophen 325 1 tab PO Q6H PRN pain #14 tabs 09/11/24 mg tablet Allergies Allergy/AdvReac Type Severity Reaction Status Date / Time adhesive tape Allergy Intermediate ALGY-Rash Verified 09/11/24 19:28 cephalexin (From Keflex) Allergy ADR-Itching Verified 09/11/24 19:28 Iodinated Contrast Media Allergy Unknown Verified 09/11/24 19:28 Penicillins Allergy ADR-Itching Verified 09/11/24 19:28 Review of Systems General: Reports: 10 or more systems reviewed and unremarkable except in HPI and below Const: Denies: fever(s), chills, fatigue or malaise Eyes: Denies: change in vision or blurry vision Card: Denies: chest pain or palpitations Resp: Denies: dyspnea or productive cough GI: Denies: abdominal pain, nausea or vomiting : Denies: flank pain Musc: Reports: extremity pain; Denies: extremity swelling Skin/Breast: Denies: rash or pruritus Neuro: Denies: headache(s) Psych: Denies: anxiety or depression Andrey/Lymph: Denies: easy bleeding All/Imm: Denies: urticaria, throat swelling or facial swelling PFSH ED PFSH: Medical History Ischemic cardiomyopathy Cigarette smoker two packs a day or less Vasovagal episode Type 2 diabetes mellitus Abnormal myocardial perfusion study Nonalcoholic fatty liver disease Dyslipidemia associated with type 2 diabetes mellitus Benign essential hypertension with target blood pressure below 140/90 Atherosclerotic heart disease of [place] coronary artery with unstable angina pectoris Non-ST elevation [place] (NSTEMI) Morbid obesity with BMI of 45.0-49.9, adult Hypercholesterolemia Acid reflux Diabetes Surgical History Hx of toe surgery Hx of hysterectomy (~2008) abdominal-- MEMO, BSO for bleeding--- Joaquin H/O heart artery stent (~07/2019) Jerrell placed stent-- 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 History of 1995 2001 History of cholecystectomy Family History Father Diabetes Heart disease Hypertension Hypercholesteremia CAD (coronary artery disease) Family/Other Ovarian cancer Maternal great grandmother-- dx age 70's Mother Hypertension Brother Hypertension Diabetes Sister Hypertension Diabetes Grandfather CAD (coronary artery disease) Grandmother Cancer Dementia Denies family history of Colon cancer Clotting disorder Chronic kidney disease (CKD) Breast cancer Suicide Anesthesia complication Bleeding disorder Lung disease Uterine cancer Thyroid disease Stroke Social History Smoking and tobacco/nicotine status: current every day tobacco/nicotine user cigarettes Packs smoked per day: 0.5 Years cigarettes smoked: 35 Alcohol intake: never Substance/Drug Use: never Adopted: No Caregiver/support person: No Lives independently: No service: No Current occupational status: employed Sexually active: Yes Do you think of yourself as: Straight/Heterosexual Current gender identity: Female Special socorro needs: No Physical Exam Const: COMMON NORMALS: no acute distress, patient oriented x3 and healthy appearing HENMT: COMMON NORMALS: normocephalic and atraumatic HEAD & SCALP: normocephalic and atraumatic Eye: COMMON NORMALS: Equal, round and reactive pupils present and EOMs intact bilaterally PUPIL: Yes Equal, round and reactive pupils present Neck/C-Spine: COMMON NORMALS: full ROM, supple and no JVD Lymph: LYMPHATIC: no lymphadenopathy noted Chest: COMMONS NORMALS: normal inspection of the chest and normal palpation of entire chest wall Resp: COMMON NORMALS: normal respiratory effort, No retractions and clear to auscultation bilaterally EFFORT & INSPECTION: Yes able to speak in complete sentences and Yes symmetric chest movement AUSCULTATION: clear to auscultation bilaterally Cardio: COMMON NORMALS: no JVD, regular rate and regular rhythm RATE: regular rate RHYTHM: regular rhythm GI: COMMON NORMALS: Normal to inspection, nondistended, normoactive bowel sounds present, Soft to palpation and non-tender INSPECTION: Yes normal to inspection PALPATION: Yes Soft to palpation : COMMON NORMALS: Yes no CVA tenderness BLADDER/KIDNEY EXAM: Yes no CVA tenderness Back/Pelvis: COMMON NORMALS: no CVA tenderness Extremity: COMMON NORMALS: full ROM; negative for normal to inspection (Moderate pain to palpation located to left lateral hip with reduced range o) Neuro: COMMON NORMALS: patient oriented x3, CN's II-XII intact bilaterally, moves all extremities and no focal motor deficits Psych: COMMON NORMALS: mental status grossly normal, Normal thought process present, cooperative and normal affect THOUGHT PROCESS: Normal thought process present Skin: COMMON NORMALS: no rashes or lesions noted GENERAL SKIN EXAM: no rashes or lesions noted Course Vital Signs: Vital signs: Vital Signs Pulse Rate 93 09/11/24 21:28 Respiratory Rate 16 09/11/24 21:28 Blood Pressure 106/61 09/11/24 21:28 Pulse Oximetry 96 09/11/24 21:28 Oxygen Delivery Me thod Room Air 09/11/24 21:28 MDM - Extremity (Nontraumatic) Medical Decision Making Due to patient's symptoms and condition x-ray imaging of the hip and pelvis will be obtained IV established basic lab work will be provided for pain control we will continue to follow Patient's x-ray appears unremarkable except for degenerative disease in the left hip but no obvious occult fracture to this CT imaging of the pelvis as well as the left hip will be obtained to further rule out any occult fracture patient was provided another dose of fentanyl for breakthrough pain control this patient was signed out to my colleague Dr. Ceja at 2208 anticipate discharge home pending repeat more detailed skin Lab Data 09/11/24 20:03 09/11/24 20:03 Radiology Impressions Hip/Pelvis X-Ray 09/11/24 19:47 IMPRESSION: No acute bony findings. Hip CT 09/11/24 21:13 IMPRESSION: No acute left hip fracture. Pelvis CT 09/11/24 21:13 IMPRESSION: There is a comminuted fracture of the left iliac bone, possibly a pathologic fracture given ill-defined appearance of the underlying bone. ADDENDUM: 09/11/24 2236 THIS REPORT CONTAINS FINDINGS THAT MAY BE CRITICAL TO PATIENT CARE. The findings were verbally communicated via telephone conference with Dr Ceja at 10:34 PM CDT on 09/11/2024. The findings were acknowledged and understood. Laboratory Results WBC 3.66 10^3/uL (3.29-11.43) 09/11/24 20:03 RBC 3.23 10^6/uL (3.85-5.65) L 09/11/24 20:03 Hgb 8.80 g/dL (11.27-16.99) L 09/11/24 20:03 Hct 28.8 % (36-47) L 09/11/24 20:03 MCV 89.2 fl (85-98) 09/11/24 20:03 MCH 27.2 pg (27-33) 09/11/24 20:03 MCHC 30.6 g/dL (30-55) 09/11/24 20:03 RDW 18.0 % (12.1-15.1) H 09/11/24 20:03 Plt Count 84 10^3/cmm (157-399) L 09/11/24 20:03 MPV 11.6 fL (7.4-10.4) H 09/11/24 20:03 Neut % (Auto) 95.9 % 09/11/24 20:03 Lymph % (Auto) 2.5 % 09/11/24 20:03 [place] % (Auto) 1.1 % 09/11/24 20:03 Eos % (Auto) 0.0 % 09/11/24 20:03 Baso % (Auto) 0.0 % 09/11/24 20:03 Neut # (Auto) 3.51 10^3/uL (1.8-7.7) 09/11/24 20:03 Lymph # (Auto) 0.1 10^3/uL (0.8-4.8) L 09/11/24 20:03 [place] # (Auto) 0.0 10^3/uL (0.2-0.9) L 09/11/24 20:03 Eos # (Auto) 0.0 10^3/uL (0.0-0.8) 09/11/24 20:03 Baso # (Auto) 0.0 10^3/uL (0.0-0.1) 09/11/24 20:03 Nucleated RBC % (auto) 0 % 09/11/24 20:03 Nucleated RBCs # 0.0 /100WBC 09/11/24 20:03 Sodium 140 mmol/L (136-145) 09/11/24 20:03 Potassium 4.1 mmol/L (3.5-5.1) 09/11/24 20:03 Chloride 104 mmol/L (98-107) 09/11/24 20:03 Carbon Dioxide 25 mmol/L (22-29) 09/11/24 20:03 Anion Gap 15.1 (5-19) 09/11/24 20:03 BUN 24 mg/dL (6-20) H 09/11/24 20:03 Creatinine 0.6 mg/dL (0.5-0.9) 09/11/24 20:03 GFR Calculation 103.8 mL/min (90-130) 09/11/24 20:03 Glucose 267 mg/dL (65-115) H 09/11/24 20:03 Calculated Osmolality 303 mOsm/kg (285-295) H 09/11/24 20:03 Calcium 8.6 mg/dL (8.5-10.5) 09/11/24 20:03 Total Bilirubin 1.2 mg/dL (0.15-1.2) 09/11/24 20:03 AST 25 U/L (0-32) 09/11/24 20:03 ALT 67 U/L (0-33) H 09/11/24 20:03 Alkaline Phosphatase 394 U/L (35-105) H 09/11/24 20:03 C-Reactive Protein 7.6 mg/L (0.0-4.9) H 09/11/24 20:03 Total Protein 5.9 g/dL (6.6-8.7) L 09/11/24 20:03 Albumin 3.3 g/dL (3.5-5.2) L 09/11/24 20:03 Globulin 2.6 g/dL (1.3-4.6) 09/11/24 20:03 All radiology interpretation(s) finalized by discharge Discharge Plan Discharge Patient Disposition: Home Clinical Impression: Closed fracture of left iliac wing Condition: Stable Prescriptions: New hydrocodone-acetaminophen 5-325 mg tablet 1 tab PO Q6H PRN (Reason: pain) Qty: 14 0RF No Action triamcinolone acetonide 0.5 % cream 1 applic topical DAILY PRN (Reason: atopic dermatitis) 30 Days Qty: 15 0RF (DME) Thumb Spica Splint See Rx Instructions .Route .MEDSUPPLY Qty: 1 0RF Rx Instructions: As directed (DME) CPAP with supplies See Rx Instructions .Route .MEDSUPPLY Qty: 1 0RF Rx Instructions: Needs new machine & supplies due to hers getting destroyed by animal. fluticasone propionate 50 mcg/actuation spray,suspension 2 spray intranasal DAILY Qty: 16 0RF Rx Instructions: administer into each nostril (DME) COCK UP SPLINT. See Rx Instructions .Route .MEDSUPPLY Qty: 1 0RF Rx Instructions: As directed Entresto 97-103 mg tablet 1 tab PO BID Qty: 180 3RF albuterol sulfate 2.5 mg /3 mL (0.083 %) solution for nebulization 2.5 mg inhalation Q4H PRN (Reason: bronchospasm) 7 Days Qty: 180 0RF pantoprazole 20 mg tablet,delayed release (DR/EC) 20 mg PO BID 90 Days Qty: 180 0RF (DME) CPAP supplies See Rx Instructions .Route .MEDSUPPLY Qty: 1 0RF Rx Instructions: As directed (DME) CPAP machine See Rx Instructions .Route .MEDSUPPLY Qty: 1 0RF Rx Instructions: As directed empagliflozin 25 mg tablet 25 mg PO DAILY Qty: 90 1RF pregabalin [Lyrica] 150 mg capsule 150 mg PO BID 30 Days Qty: 60 1RF metoprolol tartrate 25 mg tablet 25 mg PO BID Qty: 180 3RF spironolactone 25 mg tablet 25 mg PO DAILY Qty: 90 0RF Rx Instructions: TAKE ONE TABLET BY MOUTH DAILY Humulin R U-500 (Conc) Insulin 500 unit/mL solution See Rx Instructions .ROUTE .COMPLEX Rx Instructions: 100 units in the morning, 75 units at noon, 60 units in the evening atorvastatin 80 mg tablet 80 mg PO DAILY Rx Instructions: TAKE ONE TABLET BY MOUTH DAILY venlafaxine 75 mg capsule,extended release 24hr 75 mg PO DAILY Rx Instructions: TAKE ONE CAPSULE BY MOUTH DAILY isosorbide mononitrate 30 mg tablet extended release 24 hr 30 mg PO DAILY Rx Instructions: TAKE ONE TABLET BY MOUTH DAILY clopidogrel 75 mg tablet 75 mg PO DAILY Rx Instructions: TAKE ONE TABLET BY MOUTH DAILY montelukast 10 mg tablet 10 mg PO DAILY Rx Instructions: TAKE ONE TABLET BY MOUTH DAILY polyethylene glycol 3350 [Miralax] 17 gram/dose powder 17 g PO BID albuterol sulfate 90 mcg/actuation HFA aerosol inhaler 1 inh inhalation Q6H PRN (Reason: Bronchospasm) Rx Instructions: ONE INHALE INHALED EVERY 6 HOURS NEEDED FOR BRONCHOSPASM FOR 30 DAYS budesonide-formoterol 160-4.5 mcg/actuation HFA aerosol inhaler 2 puff inhalation BID Rx Instructions: INHALE 2 PUFFS BY MOUTH TWICE A DAY FOR 30 DAYS. RINSE MOUTH AFTER USE. Discharge Orders: Discharge ED (Routine); Ordered 09/11/24 Ordered By: Randall Ceja Other Ambulatory Orders: DME: Wheelchair (Order) Location: None Selected Ordered By: Randall Ceja Referrals: Colin Webber DO [Physician] - 4-7 days Ralph Rothman FNP [Primary Care Provider] - Discharge Diet: Advance as tolerated Discharge Activity: Increase activity as tolerated Patient Instructions: Pelvic Fracture (ED), Opioid Safety Print Language: [place] Coding Level of Care Code ED Media Relations Manager for Chg Fwd Documented by User: Randall Ceja MD 09/12/24 00:31 HPI - Extremity Problem General: Chief complaint: Extremity Problem,Nontraumatic Stated complaint: LEFT HIP PAIN Time Seen by Provider: 09/11/24 19:27 Related Data Home Medications ?Medication ?Instructions ?Recorded ?Confirmed insulin regular hum U-500 conc 500 See Rx Instructions .Route .COMPLEX 07/26/22 08/30/24 unit/mL subcutaneous soln (Humulin R U-500 (Concentrated) Insulin) albuterol sulfate 90 mcg/actuation 1 inh inhalation Q6H PRN 07/27/24 08/30/24 aerosol inhaler Bronchospasm atorvastatin 80 mg tablet 80 mg PO DAILY 07/27/24 08/30/24 budesonide-formoterol HFA 160 2 puff inhalation BID 07/27/24 08/30/24 mcg-4.5 mcg/actuation aerosol inhaler clopidogrel 75 mg tablet 75 mg PO DAILY 07/27/24 08/30/24 isosorbide mononitrate 30 mg 30 mg PO DAILY 07/27/24 08/30/24 tablet,extended release 24 hr montelukast 10 mg tablet 10 mg PO DAILY 07/27/24 08/30/24 polyethylene glycol 3350 17 17 g PO BID 07/27/24 08/30/24 gram/dose oral powder (Miralax) venlafaxine 75 mg capsule,extended 75 mg PO DAILY 07/27/24 08/30/24 release 24 hr Previous Rx's ?Medication ?Instructions ?Recorded CPAP supplies #1 ea 03/20/22 CPAP machine #1 ea 03/21/22 CPAP with supplies #1 ea 05/07/22 triamcinolone acetonide 0.5 % 1 applic topical DAILY PRN atopic 07/26/22 topical cream dermatitis 30 days #15 grams fluticasone propionate 50 2 spray intranasal DAILY #16 grams 08/15/22 mcg/actuation nasal spray,suspension COCK UP SPLINT. #1 ea 11/13/22 Thumb Spica Splint #1 ea 03/03/23 sacubitril 97 mg-valsartan 103 mg 1 tab PO BID #180 tabs 11/19/23 tablet (Entresto) empagliflozin 25 mg tablet 25 mg PO DAILY #90 tabs 01/20/24 albuterol sulfate 2.5 mg/3 mL 2.5 mg (3 mL) inhalation Q4H PRN 04/29/24 (0.083 %) solution for nebulization bronchospasm 7 days #180 mL pregabalin 150 mg capsule (Lyrica) 150 mg PO BID 30 days #60 caps 05/06/24 pantoprazole 20 mg tablet,delayed 20 mg PO BID 90 days #180 tabs 06/15/24 release metoprolol tartrate 25 mg tablet 25 mg PO BID #180 tabs 07/26/24 spironolactone 25 mg tablet 25 mg PO DAILY #90 tabs 08/30/24 hydrocodone 5 mg-acetaminophen 325 1 tab PO Q6H PRN pain #14 tabs 09/11/24 mg tablet Allergies Allergy/AdvReac Type Severity Reaction Status Date / Time adhesive tape Allergy Intermediate ALGY-Rash Verified 09/11/24 19:28 cephalexin (From Keflex) Allergy ADR-Itching Verified 09/11/24 19:28 Iodinated Contrast Media Allergy Unknown Verified 09/11/24 19:28 Penicillins Allergy ADR-Itching Verified 09/11/24 19:28 [facility] ED PFSH: Medical History Ischemic cardiomyopathy Cigarette smoker two packs a day or less Vasovagal episode Type 2 diabetes mellitus Abnormal myocardial perfusion study Nonalcoholic fatty liver disease Dyslipidemia associated with type 2 diabetes mellitus Benign essential hypertension with target blood pressure below 140/90 Atherosclerotic heart disease of [place] coronary artery with unstable angina pectoris Non-ST elevation [place] (NSTEMI) Morbid obesity with BMI of 45.0-49.9, adult Hypercholesterolemia Acid reflux Diabetes Surgical History Hx of toe surgery Hx of hysterectomy (~2008) abdominal-- MEMO, BSO for bleeding--- Joaquin H/O heart artery stent (~07/2019) Jerrell placed stent-- 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 History of 1995 2001 History of cholecystectomy Family History Father Diabetes Heart disease Hypertension Hypercholesteremia CAD (coronary artery disease) Family/Other Ovarian cancer Maternal great grandmother-- dx age 70's Mother Hypertension Brother Hypertension Diabetes Sister Hypertension Diabetes Grandfather CAD (coronary artery disease) Grandmother Cancer Dementia Denies family history of Colon cancer Clotting disorder Chronic kidney disease (CKD) Breast cancer Suicide Anesthesia complication Bleeding disorder Lung disease Uterine cancer Thyroid disease Stroke Social History Smoking and tobacco/nicotine status: current every day tobacco/nicotine user cigarettes Packs smoked per day: 0.5 Years cigarettes smoked: 35 Alcohol intake: never Substance/Drug Use: never Adopted: No Caregiver/support person: No Lives independently: No service: No Current occupational status: employed Sexually active: Yes Do you think of yourself as: Straight/Heterosexual Current gender identity: Female Special socorro needs: No Course Vital Signs: Vital signs: Vital Signs Pulse Rate 93 09/11/24 21:28 Respiratory Rate 16 09/11/24 21:28 Blood Pressure 106/61 09/11/24 21:28 Pulse Oximetry 96 09/11/24 21:28 Oxygen Delivery Me thod Room Air 09/11/24 21:28 MDM - Extremity (Nontraumatic) Medical Decision Making Due to patient's symptoms and condition x-ray imaging of the hip and pelvis will be obtained IV established basic lab work will be provided for pain control we will continue to follow Patient's x-ray appears unremarkable except for degenerative disease in the left hip but no obvious occult fracture to this CT imaging of the pelvis as well as the left hip will be obtained to further rule out any occult fracture patient was provided another dose of fentanyl for breakthrough pain control this patient was signed out to my colleague Dr. Ceja at 2208 anticipate discharge home pending repeat more detailed skin CT shows no hip fracture does have an iliac fracture she is not able to bear weight or walk with crutches did get her set up with a wheelchair we will get her follow-up with orthopedist stable for discharge at this time Lab Data 09/11/24 20:03 09/11/24 20:03 Radiology Impressions Hip/Pelvis X-Ray 09/11/24 19:47 IMPRESSION: No acute bony findings. Hip CT 09/11/24 21:13 IMPRESSION: No acute left hip fracture. Pelvis CT 09/11/24 21:13 IMPRESSION: There is a comminuted fracture of the left iliac bone, possibly a pathologic fracture given ill-defined appearance of the underlying bone. ADDENDUM: 09/11/24 8778 THIS REPORT CONTAINS FINDINGS THAT MAY BE CRITICAL TO PATIENT CARE. The findings were verbally communicated via telephone conference with Dr Ceja at 10:34 PM CDT on 09/11/2024. The findings were acknowledged and understood. Laboratory Results WBC 3.66 10^3/uL (3.29-11.43) 09/11/24 20:03 RBC 3.23 10^6/uL (3.85-5.65) L 09/11/24 20:03 Hgb 8.80 g/dL (11.27-16.99) L 09/11/24 20:03 Hct 28.8 % (36-47) L 09/11/24 20:03 MCV 89.2 fl (85-98) 09/11/24 20:03 MCH 27.2 pg (27-33) 09/11/24 20: MCHC 30.6 g/dL (30-55) 09/11/24 20:03 RDW 18.0 % (12.1-15.1) H 09/11/24 20:03 Plt Count 84 10^3/cmm (157-399) L 09/11/24 20:03 MPV 11.6 fL (7.4-10.4) H 09/11/24 20:03 Neut % (Auto) 95.9 % 09/11/24 20: Lymph % (Auto) 2.5 % 09/11/24 20: [place] % (Auto) 1.1 % 09/11/24 20:03 Eos % (Auto) 0.0 % 09/11/24 20: Baso % (Auto) 0.0 % 09/11/24 20: Neut # (Auto) 3.51 10^3/uL (1.8-7.7) 09/11/24 20:03 Lymph # (Auto) 0.1 10^3/uL (0.8-4.8) L 09/11/24 20:03 [place] # (Auto) 0.0 10^3/uL (0.2-0.9) L 09/11/24 20:03 Eos # (Auto) 0.0 10^3/uL (0.0-0.8) 09/11/24 20:03 Baso # (Auto) 0.0 10^3/uL (0.0-0.1) 09/11/24 20:03 Nucleated RBC % (auto) 0 % 09/11/24 20:03 Nucleated RBCs # 0.0 /100WBC 09/11/24 20:03 Sodium 140 mmol/L (136-145) 09/11/24 20:03 Potassium 4.1 mmol/L (3.5-5.1) 09/11/24 20:03 Chloride 104 mmol/L (98-107) 09/11/24 20:03 Carbon Dioxide 25 mmol/L (22-29) 09/11/24 20:03 Anion Gap 15.1 (5-19) 09/11/24 20:03 BUN 24 mg/dL (6-20) H 09/11/24 20:03 Creatinine 0.6 mg/dL (0.5-0.9) 09/11/24 20:03 GFR Calculation 103.8 mL/min (90-130) 09/11/24 20:03 Glucose 267 mg/dL (65-115) H 09/11/24 20:03 Calculated Osmolality 303 mOsm/kg (285-295) H 09/11/24 20:03 Calcium 8.6 mg/dL (8.5-10.5) 09/11/24 20:03 Total Bilirubin 1.2 mg/dL (0.15-1.2) 09/11/24 20:03 AST 25 U/L (0-32) 09/11/24 20:03 ALT 67 U/L (0-33) H 09/11/24 20:03 Alkaline Phosphatase 394 U/L (35-105) H 09/11/24 20:03 C-Reactive Protein 7.6 mg/L (0.0-4.9) H 09/11/24 20:03 Total Protein 5.9 g/dL (6.6-8.7) L 09/11/24 20:03 Albumin 3.3 g/dL (3.5-5.2) L 09/11/24 20:03 Globulin 2.6 g/dL (1.3-4.6) 09/11/24 20:03 Discharge Plan Discharge Patient Disposition: Home Clinical Impression: Closed fracture of left iliac wing Condition: Stable Prescriptions: New hydrocodone-acetaminophen 5-325 mg tablet 1 tab PO Q6H PRN (Reason: pain) Qty: 14 0RF No Action triamcinolone acetonide 0.5 % cream 1 applic topical DAILY PRN (Reason: atopic dermatitis) 30 Days Qty: 15 0RF (DME) Thumb Spica Splint See Rx Instructions .Route .MEDSUPPLY Qty: 1 0RF Rx Instructions: As directed (DME) CPAP with supplies See Rx Instructions .Route .MEDSUPPLY Qty: 1 0RF Rx Instructions: Needs new machine & supplies due to hers getting destroyed by animal. fluticasone propionate 50 mcg/actuation spray,suspension 2 spray intranasal DAILY Qty: 16 0RF Rx Instructions: administer into each nostril (DME) COCK UP SPLINT. See Rx Instructions .Route .MEDSUPPLY Qty: 1 0RF Rx Instructions: As directed Entresto 97-103 mg tablet 1 tab PO BID Qty: 180 3RF albuterol sulfate 2.5 mg /3 mL (0.083 %) solution for nebulization 2.5 mg inhalation Q4H PRN (Reason: bronchospasm) 7 Days Qty: 180 0RF pantoprazole 20 mg tablet,delayed release (DR/EC) 20 mg PO BID 90 Days Qty: 180 0RF (DME) CPAP supplies See Rx Instructions .Route .MEDSUPPLY Qty: 1 0RF Rx Instructions: As directed (DME) CPAP machine See Rx Instructions .Route .MEDSUPPLY Qty: 1 0RF Rx Instructions: As directed empagliflozin 25 mg tablet 25 mg PO DAILY Qty: 90 1RF pregabalin [Lyrica] 150 mg capsule 150 mg PO BID 30 Days Qty: 60 1RF metoprolol tartrate 25 mg tablet 25 mg PO BID Qty: 180 3RF spironolactone 25 mg tablet 25 mg PO DAILY Qty: 90 0RF Rx Instructions: TAKE ONE TABLET BY MOUTH DAILY Humulin R U-500 (Conc) Insulin 500 unit/mL solution See Rx Instructions .ROUTE .COMPLEX Rx Instructions: 100 units in the morning, 75 units at noon, 60 units in the evening atorvastatin 80 mg tablet 80 mg PO DAILY Rx Instructions: TAKE ONE TABLET BY MOUTH DAILY venlafaxine 75 mg capsule,extended release 24hr 75 mg PO DAILY Rx Instructions: TAKE ONE CAPSULE BY MOUTH DAILY isosorbide mononitrate 30 mg tablet extended release 24 hr 30 mg PO DAILY Rx Instructions: TAKE ONE TABLET BY MOUTH DAILY clopidogrel 75 mg tablet 75 mg PO DAILY Rx Instructions: TAKE ONE TABLET BY MOUTH DAILY montelukast 10 mg tablet 10 mg PO DAILY Rx Instructions: TAKE ONE TABLET BY MOUTH DAILY polyethylene glycol 3350 [Miralax] 17 gram/dose powder 17 g PO BID albuterol sulfate 90 mcg/actuation HFA aerosol inhaler 1 inh inhalation Q6H PRN (Reason: Bronchospasm) Rx Instructions: ONE INHALE INHALED EVERY 6 HOURS NEEDED FOR BRONCHOSPASM FOR 30 DAYS budesonide-formoterol 160-4.5 mcg/actuation HFA aerosol inhaler 2 puff inhalation BID Rx Instructions: INHALE 2 PUFFS BY MOUTH TWICE A DAY FOR 30 DAYS. RINSE MOUTH AFTER USE. Discharge Orders: Discharge ED (Routine); Ordered 09/11/24 Ordered By: Randall Ceja Other Ambulatory Orders: DME: Wheelchair (Order) Location: None Selected Ordered By: Randall Ceja Referrals: Colin Webber DO [Physician] - 4-7 days Ralph Rothman FNP [Primary Care Provider] - Discharge Diet: Advance as tolerated Discharge Activity: Increase activity as tolerated Patient Instructions: Pelvic Fracture (ED), Opioid Safety Print Language: Colombian Coding Level of Care Code ED Media Relations Manager for Brooke Stephen
[2024-09-11] MEDS: fentaNYL 50 mcg/mL INJ 2mL IVP ×2 (20:29→21:25)
[2024-09-11 20:31] VITALS: BP 104/52; PULSE 81; RESP 16; O2SAT 94
[2024-09-11 20:32] LABS: Alanine Aminotransferase 67 U/L (0-33); Albumin Level 3.3 g/dL (3.5-5.2); Alkaline Phosphatase 394 U/L (35-105); Anion Gap 15.1 (5-19); Aspartate Amino Transferase 25 U/L (0-32); Blood Urea Nitrogen 24 mg/dL (6-20); C Reactive Protein 7.6 mg/L (0.0-4.9); Calcium 8.6 mg/dL (8.5-10.5); Carbon Dioxide 25 mmol/L (22-29); Chloride 104 mmol/L (98-107); Creatinine Clr Calc Pharmacy 158.2543; Globulin 2.6 g/dL (1.3-4.6); Glomerular Filtration Rate 103.8 mL/min (90-130); Glucose 267 mg/dL (65-115); Osmolality Calculated 303 mOsm/kg (285-295); Potassium 4.1 mmol/L (3.5-5.1); Sodium 140 mmol/L (136-145); Total Bilirubin 1.2 mg/dL (0.15-1.2); Total Protein 5.9 g/dL (6.6-8.7)
--- NOTE | 2024-09-11 21:13 | CTR_ITS ---
PROCEDURE INFORMATION: Exam: CT Left Lower Extremity Without Contrast, Hip Exam date and time: 09/11/2024 9:58 PM Age: 54 years old Clinical indication: Prior surgery; Surgery date: 6+ months; Surgery type: Hysterectomy; C/O worsening left hip pain with inability to bear weight. Patient currently under chemotherapy for lymphoma. Patient states she was told there was a possible left pelvic hairline fracture seen on recent pet CT exam. TECHNIQUE: Imaging protocol: CT of the left lower extremity without contrast was performed. Exam focused on the hip. Radiation optimization: All CT scans at this facility use at least one of these dose optimization techniques: automated exposure control; mA and/or kV adjustment per patient size (includes targeted exams where dose is matched to clinical indication); or iterative reconstruction. COMPARISON: CR XR hip BI 3-4V wo/w pel [id number] 09/11/2024 8:45 PM RADIATION DOSE METRICS: Total DLP (mGy-cm): 649.86 FINDINGS: Bones/joints: No acute fracture or dislocation. Left hip degenerative joint disease. Small bone island at the left femoral head. Soft tissues: No radiopaque foreign body. CT/CT hip LT wo con* [id number] IMPRESSION: No acute left hip fracture.
--- NOTE | 2024-09-11 21:13 | CTR_ITS ---
PROCEDURE INFORMATION: Exam: CT Pelvis Without Contrast, Skeleton Exam date and time: 09/11/2024 9:54 PM Age: 54 years old Clinical indication: Prior surgery; Surgery date: 6+ months; Surgery type: Hysterectomy; C/O worsening left hip pain with inability to bear weight. Patient currently under chemotherapy for lymphoma. Patient states she was told there was a possible left pelvic hairline fracture seen on recent pet CT exam. TECHNIQUE: Imaging protocol: Computed tomography of the pelvis without contrast. Exam focused on the skeleton. Radiation optimization: All CT scans at this facility use at least one of these dose optimization techniques: automated exposure control; mA and/or kV adjustment per patient size (includes targeted exams where dose is matched to clinical indication); or iterative reconstruction. COMPARISON: CT abdomen pelvis wo con [id number] 07/07/2024 10:12 AM RADIATION DOSE METRICS: Total DLP (mGy-cm): 990.89 FINDINGS: Bones/joints: Comminuted fracture of the left iliac bone, possibly pathologic fracture given ill-defined appearance of the underlying bone. No dislocation. Soft tissues: Unremarkable soft tissues. CT/CT pelvis wo con [id number] IMPRESSION: There is a comminuted fracture of the left iliac bone, possibly a pathologic fracture given ill-defined appearance of the underlying bone.
[2024-09-11 21:25] VITALS: RESP 16
[2024-09-11 21:28] VITALS: BP 106/61; PULSE 93; RESP 16; O2SAT 96
[2024-09-12 00:45] VITALS: BP 148/72; PULSE 86; RESP 16; O2SAT 97
--- NOTE | 2024-09-13 07:21 | DCPLANNER ---
messaged ortho for er f/u
== END 2024-09-12 00:47 | disposition home or self-care (01) ==
PROVIDERS: Emergency Medicine; Emergency Provider Emergency Medicine; PCP Registered Nurse
DX: S32.302A Unspecified fracture of left ilium, initial encounter for closed fracture (principal); Z79.02 Long term (current) use of antithrombotics/antiplatelets; F17.210 Nicotine dependence, cigarettes, uncomplicated; E11.9 Type 2 diabetes mellitus without complications; E78.5 Hyperlipidemia, unspecified; I10 Essential (primary) hypertension; I25.110 Atherosclerotic heart disease of native coronary artery with unstable angina pectoris; X58.XXXA Exposure to other specified factors, initial encounter
CPT/HCPCS: 36415; 72192; 73522; 73700; 80053; 85025; 86140; 96374; 96376; 99285; J3010

== ENCOUNTER → 2024-09-14 13:59 | Outpatient (BNVA) | payer OTHER, SELFPAY | PROVIDERS: PCP Registered Nurse; Visit Provider Orthopaedic Surgery | DX: S32.302A Unspecified fracture of left ilium, initial encounter for closed fracture (principal); X58.XXXA Exposure to other specified factors, initial encounter | CPT/HCPCS: 73502 ==

== ENCOUNTER 2024-09-24 12:27 | Outpatient (CLI) | payer OTHER, SELFPAY ==
--- NOTE | 2024-09-24 13:00 | MRR_ITS ---
PROCEDURE INFORMATION: Exam: MR Pelvis Without Contrast, Musculoskeletal Exam date and time: 09/24/2024 12:58 PM Age: 54 years old Clinical indication: Condition or disease; Other: Hip FX; Prior surgery; Surgery date: 6+ months; Surgery type: Hyster, heart stent, gb, ; Follow up CT done here. There is a comminuted fracture of the left iliac bone, possibly a pathologic fracture given ill-defined appearance of the underlying bone. , HX of non hodgkins lymphoma TECHNIQUE: Imaging protocol: Magnetic resonance imaging of the pelvis without contrast. Exam focused on the musculoskeletal system. COMPARISON: CT pelvis wo con [id number] 09/11/2024 9:54 PM FINDINGS: Lymph nodes: No appreciable lymphadenopathy. Bones/joints: Diffuse decreased T1 signal/increased T2 signal in the left iliac bone. Suspicious for osseous involvement of lymphoma given history. Comminuted, minimally displaced (pathologic) fracture of the left iliac bone. Soft tissues: Moderate edema in the left iliacus , left gluteus medius musculature, without distinct soft tissue mass, likely reactive. Mild edema in the bilateral lower paravertebral musculature, right gluteus minimus and bilateral proximal adductus musculature , likely reactive. MR/MR pelvis wo con* [id number] IMPRESSION: 1. Diffuse decreased T1 signal/increased T2 signal in the left iliac bone. Suspicious for osseous involvement of lymphoma given history. No distinct measurable osseous lesion. 2. Comminuted, minimally displaced (pathologic) fracture of the left iliac bone.
== END 2024-09-24 12:28 | disposition home or self-care (01) ==
LOC: RAD 12:28
PROVIDERS: PCP Registered Nurse; Visit Provider Orthopaedic Surgery
DX: M84.454A Pathological fracture, pelvis, initial encounter for fracture (principal); C80.1 Malignant (primary) neoplasm, unspecified; R93.7 Abnormal findings on diagnostic imaging of other parts of musculoskeletal system; R60.0 Localized edema
CPT/HCPCS: 72195

== ENCOUNTER 2024-09-30 06:52 | Emergency (ER) | payer OTHER, SELFPAY ==
[2024-09-30] VITALS (15 sets, daily range): BP systolic 74–143; BP diastolic 42–97; PULSE 91–127; RESP 17–23; TEMP 36.3–36.5; O2SAT 96–100; BMI 40.8
--- NOTE | 2024-09-30 07:02 | ED_ITS ---
HPI - GI Bleed 2 General: Chief complaint: GI Bleed Stated complaint: GI Time Seen by Provider: 09/30/24 06:59 History of Present Illness: 54-year-old female presents emergency ro om with a complaint of bright red blood per rectum in July of this year she had a colonoscopy that showed tubular adenomas. There is a concern that she has lymphoma. She has a comminuted left iliac fracture with recent MRI to confirm. There is a question of involvement of the bone from lymphoma. She also had a recent hospitalization at [facility] for elevated liver enzymes. She has a history of poorly controlled diabetes as well as coronary artery disease and hypertension. History of COPD as well. She has been confirmed to have lymphoma in the past and has received 2 treatments at [facility]. Her last 1 was this past Friday. At that time with the most recent treatment she required a blood transfusion. She states the bright red blood per rectum began yesterday after she taking something to relieve constipation she estimates she has had about 3-4 large bloody bowel movements in the last 24 hours. Associated symptoms: Denies abdominal pain, chills, fever(s) or rash Related Data Home Medications ?Medication ?Instructions ?Recorded ?Confirmed albuterol sulfate 90 mcg/actuation 1 inh inhalation Q6 H PRN 07/27/24 09/30/24 aerosol inhaler Bronchospasm budesonide-formoterol HFA 160 2 puff inhalation BID 09/30/24 mcg-4.5 mcg/actuation aerosol inhaler clopidogrel 75 mg tablet 75 mg PO DAILY 07/27/24 0501/17 isosorbide mononitrate 30 mg 30 mg PO DAILY 07/27/24 0 09/30/24 tablet,extended release 24 hr allopurinol 300 mg tablet 300 mg PO DAILY 09/30/2401/17 docusate sodium 100 mg capsule 1 mg PO DAILY PRN Const ipation 09/30/24 09/30/24 empagliflozin 25 mg tablet 25 mg PO DAILY 09/30/2401/17 (Jardiance) magnesium oxide 400 mg PO DAILY 09/30/2401/17 mecobalamin (vitamin B12) 1,000 1,000 mcg PO DAILY 01/1709/30/24 mcg chewable tablet (B12 Active) ondansetron 8 mg disintegrating 8 mg PO Q8H PRN Nausea And Vomiting 09/30/24 09/30/24 tablet prednisone 20 mg tablet 100 mg PO DAILY 09/30/2401/17 prochlorperazine maleate 10 mg 10 mg PO Q6H PRN Nausea And 09/30/24 09/30/24 tablet Vomiting sacubitril 49 mg-valsartan 51 mg 1 tab PO TID 09/30/24 09/30/24 tablet (Entresto) Previous Rx's ?Medication ?Instructions ?Recorded CPAP supplies #1 ea 03/20/22 CPAP machine #1 ea 03/21/22 CPAP with supplies #1 ea 05/07/22 COCK UP SPLINT. #1 ea 11/13/22 Thumb Spica Splint #1 ea 03/03/23 albuterol sulfate 2.5 mg/3 mL 2.5 mg (3 mL) inhalation Q4H PRN 04/29/24 (0.083 %) solution for nebulization bronchospasm 7 day s #180 mL pantoprazole 20 mg tablet,delayed 20 mg PO BID 90 days #180 tabs 06/15/24 release metoprolol tartrate 25 mg tablet 25 mg PO BID #180 tab s 07/26/24 spironolactone 25 mg tablet 25 mg PO DAILY #90 tabs atorvastatin 80 mg tablet See Rx Instructions .Route 0 09/13/24 .COMPLEX #90 tabs montelukast 10 mg tablet See Rx Instructions .Route 0 09/13/24 .COMPLEX #30 tabs varenicline tartrate 0.5 mg (11)-1 See Rx Instructions PO PER PKG DIR 09/13/24 mg (42) tablets in a dose pack #53 ea (Chantix Starting Month Box) venlafaxine 75 mg capsule,extended 75 mg PO DAILY #90 caps 09/13/24 release 24 hr Hospital bed #1 ea 09/14/24 wheel chair #1 ea 09/14/24 pregabalin 150 mg capsule (Lyrica) 150 mg PO BID 30 da ys #60 caps 09/15/24 sacubitril 49 mg-valsartan 51 mg 1 tab PO BID 90 days #180 tabs 09/20/24 tablet oxycodone 5 mg tablet 5 mg PO Q6H PRN pain 7 days #28 09/21/24 tabs insulin regular hum U-500 conc 500 See Rx Instructions SUBCUT 09/24/24 unit/mL(3 mL) subcut pen .COMPLEX #6 mL Allergies Allergy/AdvReac Type Severity Reaction Status Date / Time adhesive tape Allergy Intermediate ALGY-Rash Verified 09/20/24 13:47 cephalexin (From Keflex) Allergy ADR-Itching Verified 09/20/24 13:47 Iodinated Contrast Media Allergy Unknown Verified 09/20/24 13:47 Penicillins Allergy ADR-Itching Verified 09/20/24 13:47 Review of Systems 2 Const: Denies: fever(s) or chills Card: Denies: chest pain Resp: Denies: dyspnea GI: Reports: hematochezia; Denies: abdominal pain : Denies: dysuria, urinary frequency or urinary urgency Musc: Denies: neck pain or back pain Skin/Breast: Denies: rash PFSH ED 2 PFSH: Medical History Ischemic cardiomyopathy Cigarette smoker two packs a day or less Vasovagal episode Type 2 diabetes mellitus Abnormal myocardial perfusion study Nonalcoholic fatty liver disease Dyslipidemia associated with type 2 diabetes mellitus Benign essential hypertension with target blood pressure below 140/90 Atherosclerotic heart disease of [place] coronary artery with unstable angina pectoris Non-ST elevation ND (NSTEMI) Morbid obesity with BMI of 45.0-49.9, adult Hypercholesterolemia Acid reflux Diabetes Surgical History Hx of toe surgery Hx of hysterectomy (~2008) abdominal-- MEMO, BSO for bleeding--- Joaquin H/O heart artery stent (~07/2019) Jerrell placed stent-- 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 History of 1995 2001 History of cholecystectomy Family History Father Diabetes Heart disease Hypertension Hypercholesteremia CAD (coronary artery disease) Family/Other Ovarian cancer Maternal great grandmother-- dx age 70's Mother Hypertension Brother Hypertension Diabetes Sister Hypertension Diabetes Grandfather CAD (coronary artery disease) Grandmother Cancer Dementia Denies family history of Colon cancer Clotting disorder Chronic kidney disease (CKD) Breast cancer Suicide Anesthesia complication Bleeding disorder Lung disease Uterine cancer Thyroid disease Stroke Social History Smoking and tobacco/nicotine status: current every day tobacco/nicotine user cigarettes Packs smoked per day: 0.5 Years cigarettes smoked: 35 Alcohol intake: never Substance/Drug Use: never Adopted: No Caregiver/support person: No Lives independently: No service: No Current occupational status: employed Sexually active: Yes Do you think of yourself as: Straight/Heterosexual Current gender identity: Female Special socorro needs: No Physical Exam 2 Const: GENERAL APPEARANCE: cooperative ORIENTATION/CONSCIOUSNESS: Yes awake, Yes oriented to person, Yes oriented to place and Yes oriented to time HENMT: COMMON NORMALS: normocephalic, atraumatic and hearing grossly normal bilaterally HEAD & SCALP: normocephalic and atraumatic Resp: COMMON NORMALS: normal respiratory effort, No retractions, No use of accessory muscles and clear to auscultation bilaterally AUSCULTATION: clear to auscultation bilaterally Cardio: COMMON NORMALS: regular rate, regular rhythm and No murmurs present (Cardio) RATE: regular rate RHYTHM: regular rhythm GI: COMMON NORMALS: Soft to palpation and No hepatosplenomegaly present A USCULTATION: Yes normoactive bowel sounds PALPATION: Yes Soft to palpation, No Tenderness to palpation present (GI), No Guarding due to palpation present (GI) and Yes No hepatosplenomegaly present Extremity: COMMON NORMALS: normal to inspection, capillary refill normal, no clubbing, cyanosis or edema, no calf tenderness and no pedal edema Neuro: SENSORIUM/ORIENTATION: Yes oriented to person, Yes oriented to place and Yes oriented to time Skin: COMMON NORMALS: no rashes or lesions noted GENERAL SKIN EXAM: no rashes or lesions noted Course 2 Vital Signs: Vital signs: Vital Signs Temperature 97.7 F 09/30/24 11:03 Pulse Rate 93 09/30/24 11:03 Respiratory Rate 20 H 09/30/24 11:03 Blood Pressure 121/72 09/30/24 11:03 Pulse Oximetry 99 09/30/24 11:03 Oxygen Delivery Me thod Room Air 09/30/24 08:30 MDM - GI Bleed Medical Decision Making Patient presents with multiple episodes of melanotic stool at home and several more while here blood pressure decreased drastically while here dropping into the 70s systolic improved after IV crystalloid fluid multiple blood transfusions patient also given TXA and Protonix. Antibiotics started Zosyn. Suspect the common bile duct stent is now obstructing or malfunctioning in someway based on the laboratory test. Patient also has upper GI bleed. She has been stabilized blood pressures improved will transfer via [facility] back to [facility] where she originally had the stent placed. Patient will be transferred via ground ambulance stable. Examination just prior to discharge patient's condition is improved she is awake able to answer questions expressed understanding of the need for transfer. Medical Records I reviewed the patient's medical records. Lab Data 09/30/24 06:57 09/30/24 06:57 Radiology Impressions Abdomen/Pelvis CT 09/30/24 08:48 IMPRESSION: 1. Colon is normal in appearance. A few sigmoid diverticuli. 2. Mild intrahepatic biliary ductal dilatation with new common bile duct stent. Recommend correlation with liver function test and biliary markers. 3. Fluid and edema about the pancreas suspicious for acute pancreatitis. 4. Distal LEFT ureteral calculus measuring 4 to 5 mm in short axis dimension and 6 mm in craniocaudal dimension. Only minimal dilatation of the LEFT renal pelvis. No significant hydronephrosis. 5. Braun catheter with diffuse bladder wall thickening. Recommend correlation for UTI. 6. LEFT iliac pathologic fracture with suspected infiltrative lymphoma unchanged since the recent MRI pelvis. 7. No other significant changes. Laboratory Results WBC 17.13 10^3/uL (3.29-11.43) H 09/30/24 06:57 RBC 2.36 10^6/uL (3.85-5.65) L 09/30/24 06:57 Hgb 6.50 g/dL (11.27-16.99) L* 09/30/24 06:57 Hct 21.6 % (36-47) L 09/30/24 06:57 MCV 91.5 fl (85-98) 09/30/24 06:57 MCH 27.5 pg (27-33) 09/30/24 06:57 MCHC 30.1 g/dL (30-55) 09/30/24 06:57 RDW 18.7 % (12.1-15.1) H 09/30/24 06:57 Plt Count 450 10^3/cmm (157-399) H 09/30/24 06:57 MPV 11.7 fL (7.4-10.4) H 09/30/24 06:57 Neut % (Auto) 96.1 % 09/30/24 06:57 Lymph % (Auto) 1.4 % 09/30/24 06:57 [place] % (Auto) 1.6 % 09/30/24 06:57 Eos % (Auto) 0.0 % 09/30/24 06:57 Baso % (Auto) 0.1 % 09/30/24 06:57 Neut # (Auto) 16.45 10^3/uL (1.8-7.7) H 09/30/24 06:57 Lymph # (Auto) 0.2 10^3/uL (0.8-4.8) L 09/30/24 06:57 [place] # (Auto) 0.3 10^3/uL (0.2-0.9) 09/30/24 06:57 Eos # (Auto) 0.0 10^3/uL (0.0-0.8) 09/30/24 06:57 Baso # (Auto) 0.0 10^3/uL (0.0-0.1) 09/30/24 06:57 Nucleated RBC % (auto) 0 % 09/30/24 06:57 Nucleated RBCs # 0.0 /100WBC 09/30/24 06:57 PT 15.60 SECONDS (12.1-14.9) H 09/30/24 06:57 INR 1.16 (0.8-1.2) 09/30/24 06:57 Sodium 141 mmol/L (136-145) 09/30/24 06:57 Potassium 5.5 mmol/L (3.5-5.1) H 09/30/24 06:57 Chloride 105 mmol/L (98-107) 09/30/24 06:57 Carbon Dioxide 22 mmol/L (22-29) 09/30/24 06:57 Anion Gap 19.5 (5-19) H 09/30/24 06:57 BUN 42 mg/dL (6-20) H 09/30/24 06:57 Creatinine 0.9 mg/dL (0.5-0.9) 09/30/24 06:57 GFR Calculation 65.0 mL/min (90-130) L 09/30/24 06:57 Glucose 283 mg/dL (65-115) H 09/30/24 06:57 POC Glucose 246 mg/dL (70-110) H 09/30/24 10:23 Calculated Osmolality 313 mOsm/kg (285-295) H 09/30/24 06:57 Lactic Acid 4.4 mmol/L (0.5-2.2) H* 09/30/24 06:57 Lactic Acid (Sepsis) 1.9 mmol/L (0.5-2.2) 09/30/24 10:41 Calcium 8.0 mg/dL (8.5-10.5) L 09/30/24 06:57 Total Bilirubin 5.1 mg/dL (0.15-1.2) H 09/30/24 06:57 AST 159 U/L (0-32) H 09/30/24 06:57 ALT 166 U/L (0-33) H 09/30/24 06:57 Alkaline Phosphatase 669 U/L (35-105) H 09/30/24 06:57 Ammonia 60 umol/L (11-51) H 09/30/24 08:24 Total Protein 4.8 g/dL (6.6-8.7) L 09/30/24 06:57 Albumin 2.6 g/dL (3.5-5.2) L 09/30/24 06:57 Globulin 2.2 g/dL (1.3-4.6) 09/30/24 06:57 Lipase 83 U/L (13-60) H 09/30/24 06:57 Urine Color Dark yellow (Yellow) A 09/30/24 07:20 Urine Appearance Cloudy (CLEAR) A 09/30/24 07:20 Urine pH 5.0 (5-7) 09/30/24 07:20 Ur Specific [place] 1.027 (1.005-1.030) 09/30/24 07:20 Urine Protein Negative (Negative) 09/30/24 07:20 Urine Glucose (UA) 3+ (Normal) H 09/30/24 07:20 Urine Ketones Trace (Negative) 09/30/24 07:20 Urine Blood 1+ (Negative) A 09/30/24 07:20 Urine Nitrate Negative (Negative) 09/30/24 07:20 Urine Bilirubin 2+ (Negative) H 09/30/24 07:20 Urine Urobilinogen 1.0 mg/dL (Negative) 09/30/24 07:20 Ur Leukocyte Esterase 1+ (Negative) A 09/30/24 07:20 Urine RBC 6-10 /hpf (0-2) 09/30/24 07:20 Urine WBC >100 /hpf (0-5) H 09/30/24 07:20 Ur Squamous Epith Cells 0-5 /hpf (0-5) 09/30/24 07:20 Amorphous Sediment Not Reportable 09/30/24 07:20 Urine Bacteria 4+ /hpf (NONE) H 09/30/24 07:20 Hyaline Casts 19.83 /lpf 09/30/24 07:20 Blood Type O Negative 09/30/24 06:57 Rho(D) Type Rh negative 09/30/24 06:57 Antibody Screen Negative 09/30/24 06:57 Crossmatch See Detail 09/30/24 06:57 All radiology interpretation(s) finalized by discharge Critical Care Time 2 Critical Care Time: Critical Care Time: Yes Total Critical Care Time: 45 Attestation: The high probability of a clinically significant, sudden or life threatening deterioration of the patient's cardiovascular GI renal system(s) required my full and direct attention, intervention and personal management. The critical care time is as shown. This time is in addition to time spent performing any reported procedures but includes the following: [x] Data and vital sign review and interpretation [x] Patient assessment, examination and intervention [x] Documentation [x] Medication orders and management Discharge Plan Discharge Patient Disposition: Transfer to ED Clinical Impression: Common bile duct obstruction secondary to biliary stent, Acute upper GI bleed, Hypovolemic shock Condition: Stable Prescriptions: No Action (DME) Thumb Spica Splint See Rx Instructions .Route .MEDSUPPLY Qty: 1 0RF Rx Instructions: As directed (DME) Hospital bed See Rx Instructions .Route .MEDSUPPLY Qty: 1 0RF Rx Instructions: As directed use is 99 (DME) wheel chair See Rx Instructions .Route .MEDSUPPLY Qty: 1 0RF Rx Instructions: As directed use is 99 (DME) CPAP with supplies See Rx Instructions .Route .MEDSUPPLY Qty: 1 0RF Rx Instructions: Needs new machine & supplies due to hers getting destroyed by animal. (DME) COCK UP SPLINT. See Rx Instructions .Route .MEDSUPPLY Qty: 1 0RF Rx Instructions: As directed albuterol sulfate 2.5 mg /3 mL (0.083 %) solution for nebulization 2.5 mg inhalation Q4H PRN (Reason: bronchospasm) 7 Days Qty: 180 0RF pantoprazole 20 mg tablet,delayed release (DR/EC) 20 mg PO BID 90 Days Qty: 180 0RF sacubitril-valsartan 49-51 mg tablet 1 tab PO BID 90 Days Qty: 180 1RF Rx Instructions: decrease in dosage starting 09/20 varenicline tartrate [Chantix Starting Month Box] 0.5 mg (11)- 1 mg (42) tablets,dose pack See Rx Instructions PO PER PKG DIR Qty: 53 0RF Rx Instructions: PO PER PKG DIR (DME) CPAP supplies See Rx Instructions .Route .MEDSUPPLY Qty: 1 0RF Rx Instructions: As directed (DME) CPAP machine See Rx Instructions .Route .MEDSUPPLY Qty: 1 0RF Rx Instructions: As directed metoprolol tartrate 25 mg tablet 25 mg PO BID Qty: 180 3RF spironolactone 25 mg tablet 25 mg PO DAILY Qty: 90 0RF Rx Instructions: TAKE ONE TABLET BY MOUTH DAILY venlafaxine 75 mg capsule,extended release 24hr 75 mg PO DAILY Qty: 90 0RF Rx Instructions: TAKE ONE CAPSULE BY MOUTH DAILY atorvastatin 80 mg tablet See Rx Instructions .ROUTE .COMPLEX Qty: 90 0RF Dose Instruction: TAKE ONE TABLET BY MOUTH DAILY Rx Instructions: TAKE ONE TABLET BY MOUTH DAILY montelukast 10 mg tablet See Rx Instructions .ROUTE .COMPLEX Qty: 30 2RF Dose Instruction: TAKE ONE TABLET BY MOUTH DAILY Rx Instructions: TAKE ONE TABLET BY MOUTH DAILY pregabalin [Lyrica] 150 mg capsule 150 mg PO BID 30 Days Qty: 60 2RF oxycodone 5 mg tablet 5 mg PO Q6H MDD 4 PRN (Reason: pain) 7 Days Qty: 28 0RF insulin regular hum U-500 conc 500 unit/mL (3 mL) insulin pen See Rx Instructions SUBCUT .COMPLEX Qty: 6 0RF Rx Instructions: 100 units in am, 70 units at noon, 60 in pm subcutaneously; isosorbide mononitrate 30 mg tablet extended release 24 hr 30 mg PO DAILY Rx Instructions: TAKE ONE TABLET BY MOUTH DAILY clopidogrel 75 mg tablet 75 mg PO DAILY Rx Instructions: TAKE ONE TABLET BY MOUTH DAILY albuterol sulfate 90 mcg/actuation HFA aerosol inhaler 1 inh inhalation Q6H PRN (Reason: Bronchospasm) Rx Instructions: ONE INHALE INHALED EVERY 6 HOURS NEEDED FOR BRONCHOSPASM FOR 30 DAYS budesonide-formoterol 160-4.5 mcg/actuation HFA aerosol inhaler 2 puff inhalation BID Rx Instructions: INHALE 2 PUFFS BY MOUTH TWICE A DAY FOR 30 DAYS. RINSE MOUTH AFTER USE. allopurinol 300 mg Tablet 300 mg PO DAILY prochlorperazine maleate 10 mg Tablet 10 mg PO Q6H PRN (Reason: Nausea And Vomiting) ondansetron 8 mg Tablet,Disintegrating 8 mg PO Q8H PRN (Reason: Nausea And Vomiting) magnesium oxide 400 mg magnesium Capsule 400 mg PO DAILY Jardiance 25 mg Tablet 25 mg PO DAILY Entresto 49-51 mg Tablet 1 tab PO TID mecobalamin (vitamin B12) [B12 Active] 1,000 mcg Tablet,Chewable 1,000 mcg PO DAILY docusate sodium 100 mg capsule 1 mg PO DAILY PRN (Reason: Constipation) prednisone 20 mg Tablet 100 mg PO DAILY Referrals: Ralph Rothman, PUBLIC HEALTH STAFF NURSE [Primary Care Provider, Family Practice] Print Language: Irish Coding Level of Care Code ED [employer] [place] [employer] for Brooke Stephen
--- NOTE | 2024-09-30 07:12 | ECG_ITS ---
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: : 1970 Requested By: Mike Vang Order Number: [id number] Reading MD: ROSALINA WEBB Measurements Intervals [place] Rate: 119 P: 70 MT: 117 QRS: 14 QRSD: 79 T: 70 QT: 304 QTc: 429 Interpretive Statements SINUS TACHYCARDIA WITH SHORT MT INTERVAL LOW QRS VOLTAGE IN PRECORDIAL LEADS [QRS DEFLECTION < 1.0 mV IN CHEST LEADS] NONSPECIFIC T-WAVE ABNORMALITY ABNORMAL RHYTHM ECG Compared to ECG 09/25/2023 17:13:55 Short MT interval now present T-wave abnormality now present Sinus rhythm no longer present Myocardial infarct finding no longer present Electronically Signed On 10-02-2024 16:19:02 CDT by ROSALINA WEBB [email or web address]
[2024-09-30 07:19] LABS: Basophils % 0.1 %; Hematocrit 21.6 % (36-47); Lymphocytes # 0.2 10^3/uL (0.8-4.8); Lymphocytes % 1.4 %; Mean Corpuscular HGB Conc 30.1 g/dL (30-55); Mean Corpuscular Hemoglobin 27.5 pg (27-33); Mean Corpuscular Volume 91.5 fl (85-98); Mean Platelet Volume 11.7 fL (7.4-10.4); Monocytes # 0.3 10^3/uL (0.2-0.9); Monocytes % 1.6 %; Neutrophils # 16.45 10^3/uL (1.8-7.7); Neutrophils % 96.1 %; Nucleated Red Blood Cells % 0 %; Platelet Count 450 10^3/cmm (157-399); Red Blood Count 2.36 10^6/uL (3.85-5.65); Red Cell Distribution Width 18.7 % (12.1-15.1); White Blood Count 17.13 10^3/uL (3.29-11.43)
[2024-09-30 07:30] LABS: Alanine Aminotransferase 166 U/L (0-33); Albumin Level 2.6 g/dL (3.5-5.2); Alkaline Phosphatase 669 U/L (35-105); Anion Gap 19.5 (5-19); Aspartate Amino Transferase 159 U/L (0-32); Blood Urea Nitrogen 42 mg/dL (6-20); Carbon Dioxide 22 mmol/L (22-29); Chloride 105 mmol/L (98-107); Creatinine Clr Calc Pharmacy 103.4798; Globulin 2.2 g/dL (1.3-4.6); Glucose 283 mg/dL (65-115); Osmolality Calculated 313 mOsm/kg (285-295); Potassium 5.5 mmol/L (3.5-5.1); Sodium 141 mmol/L (136-145); Total Bilirubin 5.1 mg/dL (0.15-1.2); Total Protein 4.8 g/dL (6.6-8.7)
[2024-09-30] MEDS: pantoprazole 40 mg SDV 80 MG IVP (07:45)
--- NOTE | 2024-09-30 07:45 | PC.NURSE ---
pt family states pt's bleeding started yesterday after attempt to manually disimpact stool.
--- NOTE | 2024-09-30 07:47 | PC.NURSE ---
pt had bloody bowel movement, this nurse with assistance cleaned pt, provided bed change, and applied brief. pt provided x2 warm blankets. pt denies any further needs at this time.
[2024-09-30 07:53] LABS: Bilirubin Urine 2+ (Negative); Blood Urine 1+ (Negative); Glucose Urine UA 3+ (Normal); Ketones Urine Trace (Negative); Leukocyte Esterase Urine 1+ (Negative); Nitrate Urine Negative (Negative); Protein Urine Negative (Negative); Specific Gravity, Urine 1.027 (1.005-1.030); Urine Appearance Cloudy (CLEAR); Urine Color Dark Yellow (Yellow)
[2024-09-30 07:58] LABS: Add Urine Microscopic? YES; Bacteria Urine 4+ /hpf; Hyaline Casts Urine 19.83 /lpf; Squamous Epithelial Cell Urine 0-5 /hpf (0-5); WBC Urine >100 /hpf (0-5)
[2024-09-30 08:14] LABS: Lactic Sepsis W/Reflex 4.4 mmol/L (0.5-2.2); Lipase 83 U/L (13-60)
--- NOTE | 2024-09-30 08:15 | PC.NURSE ---
pt became hypotensive, pallor, diaphoretic, drowsy; had large dark red bloody bowel movement. pt placed in trendelenburg; 2L NS running via pressure bag. Dr. Conti notified and at bedside.
[2024-09-30] MEDS: insulin regular-human 100 units/1 mL 10 UNIT IVP (08:31)
[2024-09-30] MEDS: tranexamic acid 1,000 MG/100 ML PREMIX 600 MG IV (08:32)
[2024-09-30] MEDS: sodium chloride 0.9% 100 mL Bag 50 ML IV ×3 (08:35→10:45)
--- NOTE | 2024-09-30 08:35 | PC.NURSE ---
antibiotics delayed d/t not having second set of blood cultures, unable at time d/t pt condition
[2024-09-30 08:40] LABS: Add Urine Culture? Yes; UA Slide Review UA Slide Review Perf
[2024-09-30 08:48] LABS: INR 1.16 (0.8-1.2)
--- NOTE | 2024-09-30 08:48 | CT_ITS ---
WS: [id number] CT ABDOMEN PELVIS TECHNIQUE: Contrast-enhanced CT of the abdomen and pelvis with coronal and sagittal reformatted images. CLINICAL INFORMATION: abd pain/gi bleed COMPARISON: None. DLP: 1322.[address] scans at [facility] use at least one of these dose optimization techniques: automated exposure control; mA and/or kV adjustment per patient size (includes targeted exams where dose is matched to clinical indication); or iterative reconstruction. FINDINGS: Stable RIGHT adrenal adenoma. Stable LEFT adrenal myolipoma. Previously described LEFT renal calculus is now in the distal LEFT ureter proximal to the UVJ. Calculus measures approximately 4 to 5 mm short axis dimension. Only minimal dilatation of the LEFT renal pelvis. No hydronephrosis. Recommend iraj elation for LEFT flank pain. Common bile duct stent. Inflammatory stranding and edema about the pancreas more prominent about the pancreatic body and tail of suspicious for pancreatitis. No drainable fluid collections or pseudocyst formation. Cirrhotic liver. Fat-containing infraumbilical abdominal wall hernia. Prior cholecystectomy. Splenomegaly. Braun catheter. Normal sigmoid colon. Few sigmoid diverticuli. 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 This is similar to the recent MRI. Mild intrahepatic biliary ductal dilatation is unchanged. Cirrhotic liver. Portal vein and splenic vein are patent. Aortic calcification. CT/CT abdomen pelvis w con* [id number] IMPRESSION: 1. Colon is normal in appearance. A few sigmoid diverticuli. 2. Mild intrahepatic biliary ductal dilatation with new common bile duct stent . Recommend correlation with liver function test and biliary markers. 3. Fluid and edema about the pancreas suspicious for acute pancreatitis. 4. Distal LEFT ureteral calculus measuring 4 to 5 mm in short axis dimension a nd 6 mm in craniocaudal dimension. Only minimal dilatation of the LEFT renal pe lvis. No significant hydronephrosis. 5. Braun catheter with diffuse bladder wall thickening. Recommend correlation for UTI. 6. LEFT iliac pathologic fracture with suspected infiltrative lymphoma unchang ed since the recent MRI pelvis. 7. No other significant changes.
[2024-09-30] MEDS: ciprofloxacin 400 MG/200 ML PREMIX 200 MG IV (08:56)
[2024-09-30 08:58] LABS: Ammonia 60 umol/L (11-51)
[2024-09-30] MEDS: methylPREDNISolone sod succ 40 mg/mL INJ IVP (09:08)
[2024-09-30] MEDS: diphenhydrAMINE 50 mg/mL SDV 1mL IVP (09:08)
[2024-09-30] MEDS: iohexol 350 mg/mL 500 mL Btl (per mL) IV (09:14)
--- NOTE | 2024-09-30 09:24 | PC.NURSE ---
antibiotics stopped and further delayed d/t lack of IV access, per Dr. Conti to hold antibiotics until blood is administered
[2024-09-30] MEDS: norepinephrine 4 MG/250 ML BAG 7.5 MG IV (09:39)
[2024-09-30 09:42] LABS: Reflex Lactate Order REFLEX LACTIC ORDERD
--- NOTE | 2024-09-30 10:14 | PC.NURSE ---
per Dr. Conti to infuse blood product unit# [id number] by gravity @1010; see TAR
--- NOTE | 2024-09-30 10:25 | PC.NURSE ---
glucose via FS 246
--- NOTE | 2024-09-30 10:25 | PC.NURSE ---
report called to Yael PELLETIER; Sabra Hightower RN; no further questions. [facility] contacted by [facility].
[2024-09-30 10:27] LABS: Glucose Point of Care 246 mg/dL (70-110)
[2024-09-30] MEDS: metroNIDAZOLE IV 500 MG/100 ML PREMIX 100 MG IV (10:45)
--- NOTE | 2024-09-30 10:47 | PC.NURSE ---
report given to [facility] @[id number]
--- NOTE | 2024-09-30 10:57 | PC.NURSE ---
blood transfusion unit #[id number], norepinephrine, and metronidazole infusing during transport. see MAR for current rates of infusions. x3 pumps sent with [facility] crew.
[2024-09-30 11:03] LABS: Lactic Acid level (Lactate) 1.9 mmol/L (0.5-2.2)
--- NOTE | 2024-09-30 11:03 | PC.NURSE ---
pt left facility at approx @[id number]
== END 2024-09-30 11:06 ==
PROVIDERS: Emergency Provider Family Medicine; PCP Registered Nurse
DX: K83.1 Obstruction of bile duct (principal); K92.2 Gastrointestinal hemorrhage, unspecified; R57.1 Hypovolemic shock; Z79.4 Long term (current) use of insulin; Z79.02 Long term (current) use of antithrombotics/antiplatelets; F17.210 Nicotine dependence, cigarettes, uncomplicated; E11.9 Type 2 diabetes mellitus without complications; E78.5 Hyperlipidemia, unspecified; I10 Essential (primary) hypertension; I25.118 Atherosclerotic heart disease of native coronary artery with other forms of angina pectoris
CPT/HCPCS: 36416; 36430; 51702; 74177; 80053; 81001; 82140; 82962; 83605; 83690; 85025; 85610; 86850; 86900; 86920; 87040; 87077; 87086; 87186; 93005; 96365; 96367; 96375; 99285; 99291; 99292; J0744; J1200; J1815; J2470; J2919; J3490; J7030; J9999; P9016